=== PATIENT | female | born 1990 | race Caucasian/White ===

== ENCOUNTER 2016-07-17 15:17 | Emergency (ER) | payer SELFPAY ==
[~2016-07-17] VITALS: Ht 162.6 cm; Wt 65.0 kg
[~2016-07-17 15:17] MED LIST: PREN0.01 PO
[2016-07-17 15:19] VITALS: BP 135/75; PULSE 96; RESP 12; TEMP 97.6; O2SAT 97
--- NOTE | 2016-07-17 16:04 | PD ---
HPI Chief Complaint: Cold / Flu Symptoms Time Seen by Provider: 16:03 Travel History International Travel<30 days: No Contact w/Intl Traveler<30days: No Traveled to known affect area: No History of Present Illness HPI 26-year-old female, with history of asthma, presents to emergency department with complaint of asthma exacerbation. Reports nasal congestion, cough, throat irritation started yesterday and unable to control her asthma with albuterol inhaler. Reports wheezing. Denies chest pain, chest tightness, shortness of breath. Denies fever, chills, nausea, vomiting. Last used her albuterol inhaler earlier this morning with minimal relief. Has not taken any other medications or drainage to alleviate her symptoms. No known allergies. Discussed with primary care provider in this area. No other modifying factors or associated signs and symptoms. PFSH Past Medical History Anemia: Yes Bipolar Disorder: Yes Anxiety: Yes Cardiovascular Problems: No Musculoskeletal: No Neurologic: No Psychiatric: Yes (BIPOLAR, DEPRESSION, PTSD) Respiratory: Yes (ASTHMA) : 4 Para: 3 Past Surgical History Other Surgery: No Social History Alcohol Use: No (admits to using cocaine about a week ago) Tobacco Use: Yes Substance Use: Yes (CRACK) Allergies-Medications (Allergen,Severity, Reaction): Coded Allergies: No Known Allergies (Unverified , 07/17/16) Reported Meds & Prescriptions Reported Meds & Active Scripts Active Reported Vitamins 1 Tab PO DAILY Review of Systems Except as stated in HPI: all other systems reviewed are Neg Physical Exam Narrative GENERAL: Well-nourished, well-developed female patient, in no acute distress; afebrile, nontoxic-appearing SKIN: Warm and dry. HEAD: Atraumatic. Normocephalic. EYES: Pupils equal and round. No scleral icterus. No injection or drainage. ENT: Mucosa pink and moist. No erythema or exudates. No uvular edema. No uvular , palatal, or tonsillar deviation. Airway patent. Nares without nasal blood, purulent drainage or septal hematoma. EARS: Bilateral pinnae and external canals appear within normal limits. Bilateral tympanic membranes without erythema, dullness or perforation. NECK: Trachea midline. No lymphadenopathy. CARDIOVASCULAR: Regular rate and rhythm. No murmur appreciated. RESPIRATORY: No accessory muscle use. Lungs with Wheezing throughout to auscultation. Breath sounds equal bilaterally. No retractions or tachypnea. No Audible wheezing noted. GASTROINTESTINAL: Abdomen soft, non-tender, nondistended. Hepatic and splenic margins not palpable. Bowel sounds are active 4 quadrants. MUSCULOSKELETAL: No obvious deformities. No clubbing. No cyanosis. No edema. NEUROLOGICAL: Awake and alert. Oriented 3. No obvious cranial nerve deficits. Motor grossly within normal limits. Normal speech. Moves all extremities. 5/5 strength to all extremities. PSYCHIATRIC: Appropriate mood and affect; insight and judgment normal. Data Data Last Documented VS Vital Signs Date Time Temp Pulse Resp B/P Pulse Ox O2 Delivery O2 Flow Rate FiO2 07/17/16 15:19 97.6 96 12 135/75 97 Room Air Orders Prednisone (Deltasone) (07/17/16 16:15) Albuterol-Ipratropium Neb (Duoneb Neb) (07/17/16 16:15) [facility] Medical Decision Making Medical Screen Exam Complete: Yes Emergency Medical Condition: Yes Medical Record Reviewed: Yes Differential Diagnosis Asthma exacerbation, viral illness, sinusitis Narrative Course 26-year-old female with history of asthma; physical exam consistent with asthma exacerbation and viral illness. Patient is in no acute distress and without retractions or tachypnea. Lungs with wheezing throughout. Oxygen saturation 97 % on room air. No audible wheezing. Discussed viral illness and symptoms management and patient verbalized understanding and agreement of treatment plan. DuoNeb and Deltasone administered in the ER. 1709: Patient left AMA immediately after DuoNeb was administered. AMA: The risks of leaving against medical advice without further evaluation treatment were discussed with the patient. These risks include cardiac dysfunction, cardiac dysrhythmia, possible heart attack, possible stroke or . The patient indicated understanding of these risks and appeared to have the capacity to make this decision. Diagnosis Primary Impression: Left against medical advice Disposition: 07 AGAINST MEDICAL ADVICE Sondra Fernandez Jul 17, 2016 16:03
[2016-07-17] MEDS ORDERED: BENZ100 PO (16:07)
[2016-07-17] MEDS ORDERED: MOME17I EACH NARE (16:07)
[2016-07-17] MEDS ORDERED: ALBUAER3 INH (16:07)
[2016-07-17] MEDS ORDERED: PRED-503 PO (16:07)
[2016-07-17] MEDS ORDERED: IBUP800T23 PO (16:07)
[2016-07-17] MEDS ORDERED: predniSONE 20 MG TAB PO ONE (16:15)
[2016-07-17] MEDS: RESP: ALBUTEROL 2.5 MG/IPRATROPIUM 0.5 MG NEB (SCH) INH ×2 (16:15→16:50)
== END 2016-07-17 17:10 | disposition left against medical advice (07) ==
LOC: NEPB 15:17
DX: J45.901 Unspecified asthma with (acute) exacerbation (principal); Z72.0 Tobacco use
CPT/HCPCS: 94640; 94664; 99283; J7512

== ENCOUNTER 2016-07-21 08:55 | Emergency (ER) | payer MEDICAID, OTHER ==
[~2016-07-21] VITALS: Ht 162.6 cm; Wt 65.0 kg
[2016-07-21 08:58] VITALS: BP 120/86; PULSE 92; RESP 20; TEMP 97.6; O2SAT 95
[2016-07-21] MEDS ORDERED: ZITHTAB PO (09:35)
[2016-07-21] MEDS ORDERED: PRED20 PO (09:35)
[2016-07-21] MEDS ORDERED: VENTAER INH (09:35)
[2016-07-21] MEDS ORDERED: BENZ100 PO (09:35)
--- NOTE | 2016-07-21 09:36 | PD ---
HPI Chief Complaint: Cold / Flu Symptoms Time Seen by Provider: 09:35 Travel History International Travel<30 days: No Contact w/Intl Traveler<30days: No Traveled to known affect area: No History of Present Illness HPI 26-year-old female with a history of asthma and chronic bronchitis presents to the emergency department for evaluation of productive cough with yellow sputum for one week. States she's also had a sore throat and headache. Denies any fever, chills, nausea, vomiting, chest pain, shortness of breath. States she has been using her inhaler as prescribed but that her symptoms have persisted. States she was seen in our emergency department several days ago but had to leave before she received her prescriptions and discharge paperwork. She also states that she recently moved to the area and does not yet have a PCP and is about to run out of her inhaler. Patient is a smoker. Denies , she is status post partial hysterectomy. No other complaints. PFSH Past Medical History Anemia: Yes Asthma: Yes Bipolar Disorder: Yes Anxiety: Yes Cardiovascular Problems: No Musculoskeletal: No Neurologic: No Psychiatric: Yes (BIPOLAR, DEPRESSION, PTSD) Respiratory: Yes (ASTHMA) Tetanus Vaccination: < 5 Years ?: Not : 4 Para: 3 Past Surgical History Hysterectomy: Yes Other Surgery: No Social History Alcohol Use: No (admits to using cocaine about a week ago) Tobacco Use: Yes Substance Use: Yes (CRACK) Allergies-Medications (Allergen,Severity, Reaction): Coded Allergies: No Known Allergies (Unverified , 07/17/16) Reported Meds & Prescriptions Reported Meds & Active Scripts Active Tessalon Perles (Benzonatate) 100 Mg Cap 100 Mg PO TID PRN 7 Days Ventolin Hfa 18 GM Inh (Albuterol Sulfate) 90 Mcg/Act Aer 2 Puff INH Q4-6H PRN Zithromax Z-Marito (Azithromycin) 250 Mg Dspk 250 Mg PO DIRECTED 500 MG (2 tabs) day 1, then 1 tab days 2-5. Prednisone 20 Mg Tab 20 Mg PO BID 5 Days Reported Vitamins 1 Tab PO DAILY Review of Systems Except as stated in HPI: all other systems reviewed are Neg Physical Exam Narrative GENERAL: Well-nourished and well-developed pleasant female patient in no acute distress who is nontoxic appearing. SKIN: Warm and dry. HEAD: Normocephalic and atraumatic. EYES: No injection, drainage, or hyphema noted. PERRLA. EOMI. ENT: No nasal drainage noted. Oropharynx is clear. NECK: Supple and the trachea is midline. CARDIOVASCULAR: Regular rate and rhythm. RESPIRATORY: Mild wheeze at bases bilaterally. No accessory muscle use,, rhonchi, or crackles. GASTROINTESTINAL: Abdomen is soft, non-tender, and nondistended. MUSCULOSKELETAL: No obvious deformities, swelling, cyanosis, or ecchymosis is present throughout the upper and lower extremities. Patient has full range of motion without any signs of neurovascular compromise. NEUROLOGICAL: Awake, alert, and oriented. Normal speech and gait. Cranial nerves are grossly intact. Data Data Last Documented VS Vital Signs Date Time Temp Pulse Resp B/P Pulse Ox O2 Delivery O2 Flow Rate FiO2 07/21/16 08:58 97.6 92 20 120/86 95 Room Air MDM Medical Decision Making Medical Screen Exam Complete: Yes Emergency Medical Condition: Yes Differential Diagnosis Acute bronchitis versus pneumonia versus asthma exacerbation Narrative Course 26-year-old female with a history of asthma presents to the emergency department for evaluation of productive cough for 1 week. Patient is afebrile, vital signs are stable. Patient appears well and is in no acute distress. The patient will be given prescriptions for an albuterol inhaler, prednisone, Z-Marito and Tessalon Perles. Discussed supportive care and when to return to the emergency department. Patient verbalizes understanding and agreement with treatment plan. Diagnosis Primary Impression: Acute bronchitis Qualified Code: J20.9 - Acute bronchitis, unspecified organism Referrals: Primary Care Physician Patient Instructions: Acute Bronchitis (ED), General Instructions Additional Instructions: Stop smoking cigarettes. Take medications as prescribed with food and a full glass of water. Follow-up with your Primary Care Physician. Return to the ED for any acute worsening of symptoms. Med/Other Pt SpecificInfo: Prescription(s) given Scripts Benzonatate (Tessalon Perles)100 Mg [id number] Mg PO TID PRN (COUGH) 7 Days Ref 0 Prov:Cruz Sapp MD 07/21/16 Albuterol 18 GM Inh (Ventolin Hfa 18 GM Inh)90 Mcg/Act Aer2 Puff INH Q4-6H PRN ( SHORTNESS OF BREATH) #1 INHALER Ref 0 Prov:Cruz Sapp MD 07/21/16 Azithromycin (Zithromax Z-Marito)250 Mg [id number] Mg PO DIRECTED #1 DSPK Ref 0 500 MG (2 tabs) day 1, then 1 tab days 2-5. Prov:Cruz Sapp MD 07/21/16 Prednisone 20 Mg Tab20 Mg PO BID 5 Days Ref 0 Prov:Cruz Sapp MD 07/21/16 Disposition: 01 DISCHARGE HOME Condition: Stable Sondra Morataya Jul 21, 2016 09:36
== END 2016-07-21 09:51 | disposition home or self-care (01) ==
LOC: NEPB 08:55
DX: J20.9 Acute bronchitis, unspecified (principal); J45.909 Unspecified asthma, uncomplicated; D64.9 Anemia, unspecified; F41.8 Other specified anxiety disorders; F31.9 Bipolar disorder, unspecified; F43.10 Post-traumatic stress disorder, unspecified; F14.10 Cocaine abuse, uncomplicated
CPT/HCPCS: 99283

== ENCOUNTER 2016-11-29 05:42 | Inpatient (IN) | payer SELFPAY ==
[~2016-11-29] VITALS: Ht 160 cm; Wt 50.0 kg
[~2016-11-29 05:42] MED LIST changes: +BENZ100 PO; +PRED20 PO; +VENTAER INH; +ZITHTAB PO
[2016-11-29 05:44] VITALS: BP 139/100; PULSE 93; RESP 18; TEMP 98.7; O2SAT 98
--- NOTE | 2016-11-29 06:06 | PD ---
HPI Chief Complaint: Back/ Neck Pain or Injury Time Seen by Provider: 05:55 Travel History International Travel<30 days: No Contact w/Intl Traveler<30days: No Traveled to known affect area: No History of Present Illness HPI 26-year-old female with history of heroine use and IV drug use, admitted at [facility] last week due to a "mass on her spine", shows me a picture that appears to be an epidural abscess of the spine, presents to the ER today because she states that she is having severe 10 out of 10 back pains and has been urinating on herself for the last week. Patient's significant other states that she had signed out AGAINST MEDICAL ADVICE after being told that she was post to get surgery in her spine. She denies any fevers or any other issues. Modifying Factors: None Associated Signs & Symptoms: Severe back pain, incontinence Risk Factors: Lupus, IV drug use, spinal abscess PFSH Past Medical History Anemia: Yes Asthma: Yes Bipolar Disorder: Yes Anxiety: Yes Cardiovascular Problems: No Musculoskeletal: No Neurologic: No Psychiatric: Yes (BIPOLAR, DEPRESSION, PTSD) Respiratory: Yes (ASTHMA) : 4 Para: 3 Past Surgical History Hysterectomy: Yes Other Surgery: No Social History Alcohol Use: No (admits to using cocaine about a week ago) Tobacco Use: Yes Substance Use: Yes (CRACK) Allergies-Medications (Allergen,Severity, Reaction): Coded Allergies: Codeine (Verified Allergy, Mild, Itching, 11/29/16) Reported Meds & Prescriptions Reported Meds & Active Scripts Active Review of Systems Except as stated in HPI: all other systems reviewed are Neg Physical Exam Narrative GENERAL: Well-developed young white female patient who is in moderate to severe distress secondary to pain. Awake and oriented 3. Crying in pain. SKIN: Focused skin assessment warm/dry. HEAD: Atraumatic. Normocephalic. EYES: Pupils equal and round. No scleral icterus. No injection or drainage. ENT: No nasal bleeding or discharge. Mucous membranes pink and moist. NECK: Trachea midline. No JVD. CARDIOVASCULAR: Regular rate and rhythm. No murmur appreciated. RESPIRATORY: No accessory muscle use. Clear to auscultation. Breath sounds equal bilaterally. GASTROINTESTINAL: Abdomen soft, non-tender, nondistended. Hepatic and splenic margins not palpable. MUSCULOSKELETAL: No obvious deformities. No clubbing. No cyanosis. No edema. NEUROLOGICAL: Awake and alert. No obvious cranial nerve deficits. Motor grossly within normal limits. Normal speech. PSYCHIATRIC: Appropriate mood and affect; insight and judgment normal. Data Data Last Documented VS Vital Signs Date Time Temp Pulse Resp B/P Pulse Ox O2 Delivery O2 Flow Rate FiO2 11/29/16 06:04 98 24 11/29/16 05:44 98.7 139/100 98 Room Air Orders Complete Blood Count With Diff (11/29/16 05:55) Comprehensive Metabolic Panel (11/29/16 05:55) Urinalysis - C+S If Indicated (11/29/16 05:55) Iv Access Insert/Monitor (11/29/16 05:55) Ecg Monitoring (11/29/16 05:55) Mri T Spine W/O Contrast (11/29/16 05:55) Mri L Spine W/O Contrast (11/29/16 05:55) Ed Urine Pregnancytest Poc (11/29/16 05:55) Vancomycin Inj (Vancomycin Inj) (11/29/16 06:23) Cefepime Inj (Maxipime Inj) (11/29/16 06:23) Sodium Chlor 0.9% 1000 Ml Inj (Ns 1000 M (11/29/16 06:30) Blood Culture (11/29/16 06:23) Lactic Acid Sepsis Protocol (11/29/16 06:23) Labs Laboratory Tests Test 11/29/16 06:00 White Blood Count 14.8 TH/MM3 Red Blood Count 4.16 MIL/MM3 Hemoglobin 12.7 GM/DL Hematocrit 37.4 % Mean Corpuscular Volume 90.0 FL Mean Corpuscular Hemoglobin 30.6 PG Mean Corpuscular Hemoglobin 34.0 % Concent Red Cell Distribution Width 13.7 % Platelet Count 242 TH/MM3 Mean Platelet Volume 9.0 FL Neutrophils (%) (Auto) 78.8 % Lymphocytes (%) (Auto) 14.8 % Monocytes (%) (Auto) 4.0 % Eosinophils (%) (Auto) 2.0 % Basophils (%) (Auto) 0.4 % Neutrophils # (Auto) 11.6 TH/MM3 Lymphocytes # (Auto) 2.2 TH/MM3 Monocytes # (Auto) 0.6 TH/MM3 Eosinophils # (Auto) 0.3 TH/MM3 Basophils # (Auto) 0.1 TH/MM3 CBC Comment DIFF FINAL Differential Comment Sodium Level 142 MEQ/L Potassium Level 4.4 MEQ/L Chloride Level 111 MEQ/L Carbon Dioxide Level 24.4 MEQ/L Anion Gap 7 MEQ/L Blood Urea Nitrogen 14 MG/DL Creatinine 0.68 MG/DL Estimat Glomerular Filtration 104 ML/MIN Rate Random Glucose 84 MG/DL Calcium Level 8.5 MG/DL Total Bilirubin 0.2 MG/DL Aspartate Amino Transf 46 U/L (AST/SGOT) Alanine Aminotransferase 22 U/L (ALT/SGPT) Alkaline Phosphatase 55 U/L Total Protein 6.8 GM/DL Albumin 3.2 GM/DL MDM Medical Decision Making Medical Screen Exam Complete: Yes Emergency Medical Condition: Yes Medical Record Reviewed: Yes Interpretation(s) Laboratory Tests Test 11/29/16 06:00 White Blood Count 14.8 TH/MM3 (4.0-11.0) Neutrophils (%) (Auto) 78.8 % (16.0-70.0) Neutrophils # (Auto) 11.6 TH/MM3 (1.8-7.7) Chloride Level 111 MEQ/L (98-107) Aspartate Amino Transf 46 U/L (15-37) (AST/SGOT) Albumin 3.2 GM/DL (3.4-5.0) Differential Diagnosis Back pain, urinary incontinenceevaluate for spinal abscess versus cauda equina versus muscle spasms Narrative Course I have sent for previous admission information from [facility] and it shows that apparently Dr. 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 Bed talked about decompressing the cyst by IR. Apparently, patient had signed out AMA from the facility. IV antibiotics were initiated after blood work shows elevation in white blood cell count. There is concern about an epidural abscess in this case considering patient's history of IV drug use and apparently patient also has HIV. Lab work and MRI has been ordered for the patient. I had also talked to Dr. Whitt who suggested that we wait for the MRI for further evaluation. Physician Communication Physician Communication Case is signed out to Dr. Raza at 7 AM awaiting workup with MRI. Diagnosis Primary Impression: Severe back pain Condition: Stable Nan Bobby MD Nov 29, 2016 06:06
[2016-11-29 06:08] LABS: AUTOMATED NEUTROPHIL # 11.6 TH/MM3 (1.8-7.7); BASOPHIL # 0.1 TH/MM3 (0-0.2); BASOPHIL % 0.4 % (0.0-2.0); EOSINOPHIL # 0.3 TH/MM3 (0-0.4); HEMATOCRIT 37.4 % (35.0-46.0); HEMO FLAGS DIFF FINAL; LYMPH % 14.8 % (9.0-44.0); LYMPHOCYTE # 2.2 TH/MM3 (1.0-4.8); MEAN CORPUSCULAR HEMOGLOBIN 30.6 PG (27.0-34.0); NEUT % 78.8 % (16.0-70.0); PLATELET COUNT 242 TH/MM3 (150-450); RED BLOOD COUNT 4.16 MIL/MM3 (4.00-5.30); RED CELL DISTRIBUTION WIDTH 13.7 % (11.6-17.2); WHITE BLOOD COUNT 14.8 TH/MM3 (4.0-11.0)
[2016-11-29] MEDS ORDERED: CEFEPIME INJ 2,000 MG in SODIUM CHLORIDE 0.9% INJ 100 ML IV STA (06:23)
[2016-11-29] MEDS ORDERED: VANCOMYCIN INJ 1,000 MG in SODIUM CHLOR 0.9% 250 ML INJ 250 ML IV STA (06:23)
[2016-11-29 06:27] LABS: ALKALINE PHOSPHATASE 55 U/L (45-117); TOTAL BILIRUBIN ADULT 0.2 MG/DL (0.2-1.0)
[2016-11-29 06:28] LABS: ALT (GPT) 22 U/L (10-53); ANION GAP 7 MEQ/L (5-15); AST (GOT) 46 U/L (15-37); BICARBONATE 24.4 MEQ/L (21.0-32.0); BLOOD UREA NITROGEN 14 MG/DL (7-18); CHLORIDE 111 MEQ/L (98-107); GLOMERULAR FILTRATION RATE 104 ML/MIN (>89); POTASSIUM 4.4 MEQ/L (3.5-5.1); SODIUM (NA) 142 MEQ/L (136-145)
[2016-11-29] MEDS ORDERED: SODIUM CHLOR 0.9% 1000 ML INJ 1,000 ML IV ONE (06:30)
[2016-11-29 06:52] VITALS: BP 107/64; PULSE 80; RESP 20; O2SAT 100
[2016-11-29 07:59] LABS: BACTERIA, URINE FEW /hpf; BLOOD, URINE TRACE (NEG); COMMENT (UR) CULTURE INDICATED; CULTURE IF INDICATED CULTURE INDICATED; GLUCOSE,URINE NEG (NEG); KETONE, URINE NEG (NEG); MUCUS URINE FEW /lpf (OCC); NITRITE,URINE NEG (NEG); SQUAMOUS EPITHELIAL CELL URINE 8 /hpf (0-5); URINE COLOR YELLOW (YELLW/STRAW)
--- NOTE | 2016-11-29 08:00 | PD ---
Physical Exam Date Seen by Provider: Nov 29, 2016 Time Seen by Provider: 07:00 Narrative The patient was signed out to me by Dr. Boland. We're awaiting MRI results. The patient has a history of IVD drug use and was seen and evaluated at [facility] transferred to [facility]. She was diagnosed with an epidural abscess and when the surgeon wanted to discuss surgery, she signed out AGAINST MEDICAL ADVICE. Data Data Last Documented VS Vital Signs Date Time Temp Pulse Resp B/P Pulse Ox O2 Delivery O2 Flow Rate FiO2 11/29/16 08:58 83 18 118/70 98 Room Air 11/29/16 05:44 98.7 Orders Complete Blood Count With Diff (11/29/16 05:55) Comprehensive Metabolic Panel (11/29/16 05:55) Urinalysis - C+S If Indicated (11/29/16 05:55) Iv Access Insert/Monitor (11/29/16 05:55) Ecg Monitoring (11/29/16 05:55) Ed Urine Pregnancytest Poc (11/29/16 05:55) Vancomycin Inj (Vancomycin Inj) (11/29/16 06:23) Cefepime Inj (Maxipime Inj) (11/29/16 06:23) Sodium Chlor 0.9% 1000 Ml Inj (Ns 1000 M (11/29/16 06:30) Blood Culture (11/29/16 06:23) Lactic Acid Sepsis Protocol (11/29/16 06:23) Mri T Spine W & W/O Contrast (11/29/16 05:55) Mri L Spine W&W/O Contrast (11/29/16 05:55) Urine Culture (11/29/16 07:20) Gadodiamide Pf Inj (Omniscan Pf Inj) (11/29/16 08:26) Vancomycin Consult Pharmacy (Vancomycin (11/29/16 09:45) Cefepime Inj (Maxipime Inj) (11/29/16 14:00) Admit To Inpatient (11/29/16 ) Code Status (11/29/16 09:37) Vital Signs (Adult) Q4H (11/29/16 09:37) Activity Oob Ad Vijaya (11/29/16 09:37) Intake + Output YENNIFER.QSHIFT (11/29/16 09:37) Notify Dr: Other (11/29/16 09:37) Diet Regular Basic (11/29/16 Breakfast) Sodium Chlor 0.9% 1000 Ml Inj (Ns 1000 M (11/29/16 09:37) Sodium Chloride 0.9% Flush (Ns Flush) (11/29/16 09:45) Sodium Chloride 0.9% Flush (Ns Flush) (11/29/16 21:00) Acetaminophen (Tylenol) (11/29/16 09:45) Ondansetron Inj (Zofran Inj) (11/29/16 09:45) Basic Metabolic Panel (Bmp) (11/30/16 06:00) Complete Blood Count With Diff (11/30/16 06:00) Prothrombin Time / Inr (Pt) (11/30/16 06:00) Case Management Consult (11/29/16 09:37) Heparin Inj (Heparin Inj) (11/29/16 09:45) Naloxone Inj (Narcan Inj) (11/29/16 09:45) Docusate Sodium-Senna (Demetra-Colace) (11/29/16 21:00) Magnesium Hydroxide Liq (Milk Of Magnesi (11/29/16 09:45) Sennosides (Senokot) (11/29/16 09:45) Bisacodyl Supp (Dulcolax Supp) (11/29/16 09:45) Lactulose Liq (Lactulose Liq) (11/29/16 09:45) Inpatient Certification (11/29/16 ) Scd Bilateral/Knee High YENNIFER.QSHIFT (11/29/16 09:42) Admit Order (Ed Use Only) (11/29/16 09:42) Labs Laboratory Tests Test 11/29/16 11/29/16 11/29/16 06:00 06:35 07:20 White Blood Count 14.8 TH/MM3 Red Blood Count 4.16 MIL/MM3 Hemoglobin 12.7 GM/DL Hematocrit 37.4 % Mean Corpuscular Volume 90.0 FL Mean Corpuscular Hemoglobin 30.6 PG Mean Corpuscular Hemoglobin 34.0 % Concent Red Cell Distribution Width 13.7 % Platelet Count 242 TH/MM3 Mean Platelet Volume 9.0 FL Neutrophils (%) (Auto) 78.8 % Lymphocytes (%) (Auto) 14.8 % Monocytes (%) (Auto) 4.0 % Eosinophils (%) (Auto) 2.0 % Basophils (%) (Auto) 0.4 % Neutrophils # (Auto) 11.6 TH/MM3 Lymphocytes # (Auto) 2.2 TH/MM3 Monocytes # (Auto) 0.6 TH/MM3 Eosinophils # (Auto) 0.3 TH/MM3 Basophils # (Auto) 0.1 TH/MM3 CBC Comment DIFF FINAL Differential Comment Sodium Level 142 MEQ/L Potassium Level 4.4 MEQ/L Chloride Level 111 MEQ/L Carbon Dioxide Level 24.4 MEQ/L Anion Gap 7 MEQ/L Blood Urea Nitrogen 14 MG/DL Creatinine 0.68 MG/DL Estimat Glomerular Filtration 104 ML/MIN Rate Random Glucose 84 MG/DL Calcium Level 8.5 MG/DL Total Bilirubin 0.2 MG/DL Aspartate Amino Transf 46 U/L (AST/SGOT) Alanine Aminotransferase 22 U/L (ALT/SGPT) Alkaline Phosphatase 55 U/L Total Protein 6.8 GM/DL Albumin 3.2 GM/DL Lactic Acid Level 1.0 mmol/L Urine Color YELLOW Urine Turbidity HAZY Urine pH 7.0 Urine Specific [place] 1.017 Urine Protein TRACE mg/dL Urine Glucose (UA) NEG mg/dL Urine Ketones NEG mg/dL Urine Occult Blood TRACE Urine Nitrite NEG Urine Bilirubin NEG Urine Urobilinogen LESS THAN 2.0 MG/DL Urine Leukocyte Esterase LARGE Urine RBC 6 /hpf Urine WBC 70 /hpf Urine Squamous Epithelial 8 /hpf Cells Urine Amorphous Sediment FEW Urine Bacteria FEW /hpf Urine Mucus FEW /lpf Microscopic Urinalysis Comment CULTURE INDICATED MDM Medical Record Reviewed: Yes Supervised Visit with JIMMY: No Narrative Course This is a 76 year old female who presents with back pain and urinary incontinence. The patient has a history of IVD drug use. She was seen at [facility] and recommendation was that she possibly would need surgery and she signed out AGAINST MEDICAL ADVICE. The patient is somewhat aggressive and disruptive however she has agreed to have an MRI. MRI shows what looks like a subarachnoid cyst rather than an epidural abscess. Dr. Dilan Barry, oncology coordinator neurosurgeon, has been called and consulted. He is recommended interventional radiology drainage of the subarachnoid cyst. The patient was discussed with Dr. Quesada, [facility], who agreed to admit the patient under his service. He will start her on by the antibiotics until we can confirm that this is not infectious etiology. Diagnosis Primary Impression: Severe back pain Additional Impression: history of IVD drug use Admitting Information Admitting Physician Requests: Admit Condition: Stable Yunior Raza MD Nov 29, 2016 08:00
[2016-11-29] MEDS ORDERED: GADODIAMIDE PF 287 MG/ML 10 ML VIAL (for RAD MRI) IV ONE (08:26)
--- NOTE | 2016-11-29 08:57 | RADRPT ---
EXAM DATE/TIME: 11/29/2016 07:47 [place] COMPARISON: No previous studies available for comparison. INDICATIONS : Abscess. Back pain with history of IVDU. CONTRAST: 10 cc Omniscan (gadodiamide) IV MEDICAL HISTORY : IVDU. SURGICAL HISTORY : Hysterectomy. ENCOUNTER: Initial ACUITY: 3 day PAIN SCORE: 6/10 LOCATION: back. TECHNIQUE: Multiplanar multisequence MRI of the lumbar spine was performed with and without contrast. FINDINGS: The most caudal appearing lumbar vertebra is numbered as L5. VERTEBRAE: Bone marrow signal is within normal limits and vertebral body height is maintained. There is no anter olisthesis or retrolisthesis. There is a CSF signal intensity fluid collection extending from T11-L1 measuring approximately 8.0 x 1.9 cm. It is located posterior to the thecal sac and what appears to b e the epidural space and causes enlargement of the spinal canal and scalloping of the posterior eleme nts and anteriorly displaces the thecal sac. It follows CSF signal intensity on all sequences. CONUS: Normal level and configuration. POST CONTRAST: No abnormal areas of contrast enhancement are seen. T12-L1: There is anterior displacement of the thecal sac secondary to the posterior extradural CSF signal int ensity collection which enlarges the spinal canal and neural foramina. There is mild decreased size o f the thecal sac. There is no neural foraminal narrowing. L1-L2: No disc herniation, canal stenosis, or neural frontal stenosis. L2-L3: No disc herniation, canal stenosis, or neural frontal stenosis. L3-L4: No disc herniation, canal stenosis, or neural frontal stenosis. L4-L5: No disc herniation, canal stenosis, or neural frontal stenosis. There is mild facet hypertrophy. L5-S1: No disc herniation, canal stenosis, or neural frontal stenosis. Visualized paraspinous structures demonstrate no acute finding. CONCLUSION: 1. There are no findings to indicate osteomyelitis or discitis. 2. There is a posterior extradural cystic mass extending from the T11-L1 level measuring 8.0 x 1.9 cm . It enlarges the spinal canal scalloping the posterior elements and enlarging the neural foramina. I t has mild mass effect on the thecal sac. 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 Romeo Bailey MD on November 29, 2016 at 8:46 Board Certified Radiologist. This report was verified electronically.
[2016-11-29 08:58] VITALS: BP 118/70; PULSE 83; RESP 18; O2SAT 98
--- NOTE | 2016-11-29 09:02 | RADRPT ---
EXAM DATE/TIME: 11/29/2016 07:47 [place] COMPARISON: MRI LUMBAR SPINE W & W/O CONTRAST, November 29, 2016, 7:47. INDICATIONS : Abscess. Back pain with history of IVDU. CONTRAST: 10 cc Omniscan (gadodiamide) IV MEDICAL HISTORY : IVDU. SURGICAL HISTORY : Hysterectomy. ENCOUNTER: Initial ACUITY: 3 day PAIN SCORE: 6/10 LOCATION: mid back. TECHNIQUE: Multiplanar multisequence MRI of the thoracic spine was performed. FINDINGS: VERTEBRA: Normal vertebral body height. Bone marrow signal is normal. There is a posterior extradural cystic ma ss containing a single thin septation at the T11-L1 level. It measures approximately 8.0 x 1.9 cm and expands the spinal canal and anteriorly displaces the thecal sac. It causes mild scalloping of the p osterior elements and enlargement of some of the neural foramina. It follows CSF signal intensity on all sequences and demonstrates no enhancement. ALIGNMENT: There is no anterolisthesis or retrolisthesis. CORD: Normal position and configuration. POST CONTRAST: No abnormal areas of contrast enhancement seen. T1-T2: No disc herniation, canal stenosis, or neural foraminal stenosis. T2-T3: No disc herniation, canal stenosis, or neural foraminal stenosis. T3-T4: No disc herniation, canal stenosis, or neural foraminal stenosis. T4-T5: No disc herniation, canal stenosis, or neural foraminal stenosis. T5-T6: No disc herniation, canal stenosis, or neural foraminal stenosis. T6-T7: No disc herniation, canal stenosis, or neural foraminal stenosis. T7-T8: No disc herniation, canal stenosis, or neural foraminal stenosis. T8-T9: No disc herniation, canal stenosis, or neural foraminal stenosis. T9-T10: No disc herniation, canal stenosis, or neural foraminal stenosis. T10-T11: No disc herniation, canal stenosis, or neural foraminal stenosis. T11-T12: No disc herniation, canal stenosis, or neural foraminal stenosis. T12-L1: No disc herniation, canal stenosis, or neural foraminal stenosis. The visualized paraspinous structures demonstrate no abnormality. CONCLUSION: 1. No acute abnormality is identified. There is no discitis or osteomyelitis. 2. There is a cystic mass in the posterior aspect of the spinal canal at the T11-L1 level measuring 8 .0 x 1.9 cm. 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 It has mild mass effect on the adjacent thecal sac. Romeo Bailey MD on November 29, 2016 at 8:56 Board Certified Radiologist. This report was verified electronically.
[2016-11-29] MEDS ORDERED: SODIUM CHLOR 0.9% 1000 ML INJ 1,000 ML IV SCH (09:37)
[2016-11-29] MEDS ORDERED: BISACODYL 10 MG SUPP RECTAL PRN (09:45)
[2016-11-29] MEDS ORDERED: HEPARIN SODIUM - SQ 10,000 UNITS/ML VIAL SQ SCH (09:45)
[2016-11-29] MEDS ORDERED: SENNOSIDES 8.6 MG TAB PO PRN (09:45)
[2016-11-29] MEDS ORDERED: NALOXONE HCL 0.4 MG/ML AMP IV PRN (09:45)
[2016-11-29] MEDS ORDERED: LACTULOSE SYRUP 20 GM/30 ML CUP PO PRN (09:45)
[2016-11-29] MEDS ORDERED: Vancomycin Consult Pharmacy 1 EA OTHER SCH (09:45)
[2016-11-29] MEDS ORDERED: SODIUM CHLORIDE 0.9% FLUSH 10 ML FLUSH IV FLUSH PRN (09:45)
[2016-11-29] MEDS ORDERED: ACETAMINOPHEN 325 MG TAB PO PRN (09:45)
[2016-11-29] MEDS ORDERED: ONDANSETRON HCL 4 MG/2 ML VIAL IVP PRN (09:45)
[2016-11-29] MEDS ORDERED: MAGNESIUM HYDROXIDE SUSP 30 ML CUP PO PRN (09:45)
--- NOTE | 2016-11-29 09:53 | HHI.HP ---
Epidural Abscess versus epidural Cyst. [facility] No Primary Care Physician Admission Diagnosis Diagnoses: Chief Complaint: Lumbar pain and probable spine mass Travel History International Travel<30 Days: No Contact w/Intl Traveler <30 Da: No Traveled to Known Affected Are: No History of Present Illness This is a pleasant 26 y/o Female with history of Heroin Abuse and IDU, she was admitted to [facility] due to Spinal Mass with probable epidural abscess, she was started management but she signed against Medical Advice, today came to ER with severe Pain 10/10 in intensity on back area with associated Urinary Incontinence , for one week, the case was discussed by ER specialist with Neurosurgery specialist, recommended Interventional Radiology to drain the Cyst and evaluate if is an infectious process versus, Cyst. at this time is Lopez to continue management as Spinal Abscess recommended management Elected in ER with Vancomycin plus Cefepime, will continue this management and follow after Drainage performed as we know the patient has Anemia, Asthma, Bipolar disorder, the patient refuse and gets upset when asked about hepatitis and HIV status seen in Emergency room in the presence of her boyfriend Mr. Antwon Galicia. she was initially seen at [facility] sent to [facility] she was evaluated by Doctor Santillan and offered Procedure she signed AMA and now came to ER with pain. Past Family Social History Past Medical History Anemia Asthma Bipolar disorder Hepatitis C HIV Past Surgical History ALLYSON Reported Medications Reported Meds & Active Scripts Active Allergies: Coded Allergies: Codeine (Verified Allergy, Mild, Itching, 11/29/16) Active Ordered Medications Current Medications Medications (Trade) Dose Ordered Sig/Fredi Route Start Time Stop Time Status Last Admin Pharmacy Profile Note 0 ml @ 0 mls/hr UNSCH OTHER 11/29/16 09:45 Cefepime HCl 2000 mg/Sodium Chloride 100 ml @ 200 mls/hr Q8H IV 11/29/16 14:00 (NS 1000 ml Inj) 1,000 ml @ 100 mls/hr Q10H IV 11/29/16 09:37 (NS Flush) 2 ml UNSCH PRN IV FLUSH 11/29/16 09:45 (NS Flush) 2 ml BID IV FLUSH 11/29/16 21:00 (Tylenol) 650 mg Q4H PRN PO 11/29/16 09:45 (Zofran Inj) 4 mg Q6H PRN IVP 11/29/16 09:45 (Narcan Inj) 0.4 mg UNSCH PRN IV 11/29/16 09:45 (Demetra-Colace) 1 tab BID PO 11/29/16 21:00 (Milk Of Magnesia Liq) 30 ml Q12H PRN PO 11/29/16 09:45 (Senokot) 17.2 mg Q12H PRN PO 11/29/16 09:45 (Dulcolax Supp) 10 mg DAILY PRN RECTAL 11/29/16 09:45 Lactulose 30 ml 30 ml DAILY PRN PO 11/29/16 09:45 (Vancomycin Inj/ NS 250 ml Inj) 250 ml @ 250 mls/hr Q12H IV 11/29/16 20:00 Miscellaneous Information SPECIFIC LAB TO BE ... ONCE ONCE .XX 11/30/16 19:45 11/30/16 19:46 Family History Asked and denied Social History Crack cocaine Tobacco dependence Physical Exam Vital Signs Vital Signs Date Time Temp Pulse Resp B/P Pulse Ox O2 Delivery O2 Flow Rate FiO2 11/29/16 08:58 83 18 118/70 98 Room Air 11/29/16 06:52 80 20 107/64 100 Room Air 11/29/16 06:04 98 24 11/29/16 05:44 98.7 93 18 139/100 98 Room Air Physical Exam GENERAL: Well-developed Female in no acute distress sleeping in ER. SKIN: Focused skin assessment warm/dry. HEAD: Atraumatic. Normocephalic. EYES: Pupils equal and round. No scleral icterus. No injection or drainage. ENT: No nasal bleeding or discharge. Mucous membranes pink and moist. NECK: Trachea midline. No JVD. CARDIOVASCULAR: Regular rate and rhythm. No murmur appreciated. RESPIRATORY: No accessory muscle use. Clear to auscultation. Breath sounds equal bilaterally. GASTROINTESTINAL: Abdomen soft, non-tender, nondistended. Hepatic and splenic margins not palpable. MUSCULOSKELETAL: No obvious deformities. No clubbing. No cyanosis. No edema. NEUROLOGICAL: Awake and alert. No obvious cranial nerve deficits. Motor grossly within normal limits. Normal speech. PSYCHIATRIC: Appropriate mood and affect; insight and judgment normal. Laboratory Laboratory Tests Test 11/29/16 11/29/16 11/29/16 06:00 06:35 07:20 White Blood Count 14.8 Red Blood Count 4.16 Hemoglobin 12.7 Hematocrit 37.4 Mean Corpuscular Volume 90.0 Mean Corpuscular Hemoglobin 30.6 Mean Corpuscular Hemoglobin 34.0 Concent Red Cell Distribution Width 13.7 Platelet Count 242 Mean Platelet Volume 9.0 Neutrophils (%) (Auto) 78.8 Lymphocytes (%) (Auto) 14.8 Monocytes (%) (Auto) 4.0 Eosinophils (%) (Auto) 2.0 Basophils (%) (Auto) 0.4 Neutrophils # (Auto) 11.6 Lymphocytes # (Auto) 2.2 Monocytes # (Auto) 0.6 Eosinophils # (Auto) 0.3 Basophils # (Auto) 0.1 CBC Comment DIFF FINAL Differential Comment Sodium Level 142 Potassium Level 4.4 Chloride Level 111 Carbon Dioxide Level 24.4 Anion Gap 7 Blood Urea Nitrogen 14 Creatinine 0.68 Estimat Glomerular Filtration 104 Rate Random Glucose 84 Calcium Level 8.5 Total Bilirubin 0.2 Aspartate Amino Transf 46 (AST/SGOT) Alanine Aminotransferase 22 (ALT/SGPT) Alkaline Phosphatase 55 Total Protein 6.8 Albumin 3.2 Lactic Acid Level 1.0 Urine Color YELLOW Urine Turbidity HAZY Urine pH 7.0 Urine Specific [place] 1.017 Urine Protein TRACE Urine Glucose (UA) NEG Urine Ketones NEG Urine Occult Blood TRACE Urine Nitrite NEG Urine Bilirubin NEG Urine Urobilinogen LESS THAN 2.0 Urine Leukocyte Esterase LARGE Urine RBC 6 Urine WBC 70 Urine Squamous Epithelial 8 Cells Urine Amorphous Sediment FEW Urine Bacteria FEW Urine Mucus FEW Microscopic Urinalysis Comment CULTURE INDICATED Date/Time Procedure Status Source Growth 11/29/16 07:20 Urine Culture Received Urine Clean Catch Pending 11/29/16 06:20 Aerobic Blood Culture Received Blood Peripheral Pending 11/29/16 06:20 Anaerobic Blood Culture Received Blood Peripheral Pending Result Diagram: 11/29/16 0611/29/16 06 Imaging Last Impressions Thoracic Spine MRI 11/29/16 0555 Signed Impressions: Service Date/Time: November 07:47 - CONCLUSION: 1. No acute abnormality is identified. There is no discitis or osteomyelitis. 2. There is a cystic mass in the posterior aspect of the spinal canal at the T11-L1 level measuring 8.0 x 1.9 cm. 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 It has mild mass effect on the adjacent thecal sac. Romeo Bailey MD Lumbar Spine MRI 11/29/16 0555 Signed Impressions: Service Date/Time: , November 29, 2016 07:47 - CONCLUSION: 1. There are no findings to indicate osteomyelitis or discitis. 2. There is a posterior extradural cystic mass extending from the T11-L1 level measuring 8.0 x 1.9 cm. It enlarges the spinal canal scalloping the posterior elements and enlarging the neural foramina. It has mild mass effect on the thecal sac. 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 Romeo Bailey MD Assessment and Plan Assessment and Plan 1. MRIs that showed that the patient had a subarachnoid cyst in her spine. consult placed for Neurosurgery. decompressing the cyst by IR. asked by IR in this facility at this time Apparently, patient had signed out AMA from the facility. IV antibiotics were initiated after blood work shows elevation in white blood cell count. There is concern about an epidural abscess in this case considering patient' s history of IV drug use and apparently patient also has HIV and Hepatitis C the patient refuse about the diagnosis of HIV and Hepatitis she states she does not have this diagnosis. 2. Continuous IV Drug abuse the last time she was abusing Heroin was yesterday, strongly recommended to stop Smoking 3. IDU strongly recommended to stop abusing drugs 4. Questionable Hepatitis C and HIV asked for HIV and Hepatitis Profile. DVT prophylaxis with SCDs due to probable procedure to follow. I have been called by ER nurse to tell me after I did the evaluation in Emergency room and doing this H and P that the patient decided to sign AGAINST MEDICAL ADVISE Code Status Full Code Discussed Condition With Patient, ER physician and boyfriend. Physician Certification 2 Midnight Certification Type: Admission for Inpatient Services Order for Inpatient Services The services are ordered in accordance with Medicare regulations or non- Medicare payer requirements, as applicable. In the case of services not specified as inpatient-only, they are appropriately provided as inpatient services in accordance with the 2-midnight benchmark. Estimated LOS (days): 3 days is the estimated time the patient will need to remain in the hospital, assuming treatment plan goals are met and no additional complications. Post-Hospital Plan: Not yet determined Faizan Fraser MD Nov 29, 2016 09:53
[2016-11-29 10:30] VITALS: BP 117/82
[2016-11-29 12:31] LABS: BETA HCG QUANT LESS THAN 1 MIU/ML (0-5)
[2016-11-29] MEDS ORDERED: CEFEPIME INJ 2,000 MG in SODIUM CHLORIDE 0.9% INJ 100 ML IV SCH (14:00)
[2016-11-29] MEDS ORDERED: VANCOMYCIN 1,000 MG/NS 250 ML IV SCH ×2 (20:00)
[2016-11-29] MEDS ORDERED: DOCUSATE SODIUM 50 MG/SENNA 8.6 MG TAB PO SCH (21:00)
[2016-11-29] MEDS ORDERED: SODIUM CHLORIDE 0.9% FLUSH 10 ML FLUSH IV FLUSH SCH (21:00)
[2016-11-30 10:32] LABS: RAPID PLASMA REAGIN SCREEN NON-REACTIVE (NON-REACTVE)
[2016-11-30] MEDS ORDERED: PHARMACY ORDERED LAB ONE (19:45)
== END 2016-11-29 11:10 | disposition left against medical advice (07) | DRG 93 ==
LOC: NEPE 05:42 → NEDA 09:46
PROVIDERS: ADMIT Internal Medicine; ATTEND Internal Medicine
DX: G93.0 Cerebral cysts (principal); M32.10 Systemic lupus erythematosus, organ or system involvement unspecified; B19.20 Unspecified viral hepatitis C without hepatic coma; D64.9 Anemia, unspecified; J45.909 Unspecified asthma, uncomplicated; F31.9 Bipolar disorder, unspecified; F41.9 Anxiety disorder, unspecified; F43.10 Post-traumatic stress disorder, unspecified; F17.210 Nicotine dependence, cigarettes, uncomplicated; R32 Unspecified urinary incontinence
CPT/HCPCS: 72157; 72158; 80053; 80074; 81001; 83605; 84702; 84703; 85025; 86592; 86703; 87040; 87086; 96365; 96375; A9579; J0692; J3370; J7030; J7050

== ENCOUNTER 2016-12-01 18:57 | Emergency (ER) | payer SELFPAY ==
[~2016-12-01] VITALS: Ht 162.6 cm; Wt 55.0 kg
[2016-12-01 19:00] VITALS: BP 124/94; PULSE 86; RESP 16; TEMP 97.9; O2SAT 99
== END 2016-12-01 21:00 | disposition left against medical advice (07) ==
LOC: NED 18:57
DX: M54.9 Dorsalgia, unspecified (principal); Z53.21 Procedure and treatment not carried out due to patient leaving prior to being seen by health care provider
CPT/HCPCS: 99281

== ENCOUNTER 2016-12-30 10:35 | Emergency (ER) | payer SELFPAY ==
[~2016-12-30] VITALS: Ht 160 cm; Wt 50.0 kg
[2016-12-30 10:36] VITALS: BP 112/70; PULSE 87; RESP 16; TEMP 98.2; O2SAT 98
[2016-12-30] MEDS ORDERED: ALBU6.7H INH (10:50)
--- NOTE | 2016-12-30 11:52 | PD ---
HPI Chief Complaint: Back/ Neck Pain or Injury Time Seen by Provider: 10:52 Travel History International Travel<30 days: No Contact w/Intl Traveler<30days: No Traveled to known affect area: No History of Present Illness HPI Patient is a 26-year-old male with history of active IV drug abuse who presents the emergency department with complaint of back pain. Patient seen here and admitted to our hospital approximately one month ago with a cystic lesion in the spine from approximately T11 through L1. There was concern for this to be a possible epidural abscess given her IV drug abuse history, though radiographically this more appeared to be a arachnoid cyst. The plan was to have her admitted and have interventional radiology aspirate for cultures the patient ultimately left AMA. She presented back to the ER several days later, and left AMA again. In the interim last month patient states that she has been having persistent pain in the back within that region. She has had persistent intermittent urinary incontinence. She states she has fevers and chills on a nightly basis and this is not any worse. The back pain is worse today despite using IV drugs today and so she came to the ER for further evaluation. PFSH Past Medical History Anemia: Yes Asthma: Yes Bipolar Disorder: Yes Anxiety: Yes Cardiovascular Problems: No Diminished Hearing: No Immune Disorder: Yes (Lupus) Musculoskeletal: Yes (mass on spine) Neurologic: No Psychiatric: Yes (BIPOLAR, DEPRESSION, PTSD) Respiratory: Yes (ASTHMA) Tetanus Vaccination: Unknown ?: Not : 8 Para: 4 Miscarriage: 4 Past Surgical History Gynecologic Surgery: Yes (partial Hysterectomy 2014) Hysterectomy: Yes Other Surgery: No Social History Alcohol Use: No Tobacco Use: Yes (1/2-1PPD) Substance Use: Yes ( IV DRUG Herion LAST USED 2-3 DAYS AGO) Allergies-Medications (Allergen,Severity, Reaction): Coded Allergies: Codeine (Verified Allergy, Mild, Itching, 12/30/16) Milk (Verified Adverse Reaction, Mild, Diarrhea, 12/30/16) Reported Meds & Prescriptions Reported Meds & Active Scripts Active Reported Proventil Hfa 6.7 GM Inh (Albuterol Sulfate) 90 Mcg/Act Aer 2 Puff INH Q4-6H PRN Review of Systems Except as stated in HPI: all other systems reviewed are Neg Physical Exam Narrative GENERAL: Thin female in no acute distress SKIN: Focused skin assessment warm/dry. Back rush to the bilateral antecubital HEAD: Normocephalic. EYES: No scleral icterus. No injection or drainage. ENT: Mucous membranes pink and moist. NECK: Supple CARDIOVASCULAR: Regular rate and rhythm. No murmur. RESPIRATORY: No accessory muscle use. MUSCULOSKELETAL: Tenderness to palpation throughout the low thoracic and superior lumbar spine both left right and midline. There is no obvious deformity. 5 out of 5 strength in the bilateral upper and lower extremities with reflexes and distal sensation intact NEUROLOGICAL: Awake and alert. Motor grossly within normal limits. Normal speech. PSYCHIATRIC: Appropriate mood and affect; insight and judgment normal. Data Data Last Documented VS Vital Signs Date Time Temp Pulse Resp B/P Pulse Ox O2 Delivery O2 Flow Rate FiO2 12/30/16 10:45 18 12/30/16 10:36 98.2 87 112/70 98 Orders Mri L Spine W&W/O Contrast (12/30/16 ) [facility] Medical Decision Making Medical Screen Exam Complete: Yes Emergency Medical Condition: Yes Medical Record Reviewed: Yes Differential Diagnosis 26-year-old female with active IV drug abuse here with complaint of back pain. Known cystic lesion in the thoracic/lumbar spine concerning for arachnoid cyst versus epidural abscess. Her symptoms however have not progressively worsened over the course of the last month. She is not any more symptomatic with regards to all or bladder dysfunction, paralysis, etc. I strong suspicion is that this is probably arachnoid cyst and would recommend repeating MRI to evaluate for any evolution. We would also then be able to see if she has any new evidence of infection abscess discitis or osteomyelitis. Narrative Course Patient placed on monitor. MRI of the spine ordered. Attempted IV access 2 on patient and then she decided that she wanted to leave AGAINST MEDICAL ADVICE. Patient states "if you can't get an IV that I'm not going to stay". Second nurse attempted to access patient and she refused, walking out in her hospital gown. Diagnosis Primary Impression: Left against medical advice Disposition: AGAINST MEDICAL ADVICE Condition: Stable Zaina Ga MD Dec 30, 2016 11:52
== END 2016-12-30 12:00 | disposition left against medical advice (07) ==
LOC: NEPD 10:35
DX: M54.9 Dorsalgia, unspecified (principal); F19.10 Other psychoactive substance abuse, uncomplicated; R32 Unspecified urinary incontinence; R50.9 Fever, unspecified; D64.9 Anemia, unspecified; J45.909 Unspecified asthma, uncomplicated; F31.9 Bipolar disorder, unspecified; M32.9 Systemic lupus erythematosus, unspecified; F43.10 Post-traumatic stress disorder, unspecified
CPT/HCPCS: 99281

== ENCOUNTER 2017-01-27 10:49 | Inpatient (IN) | payer BC, MEDICAID, OTHER ==
[~2017-01-27 10:49] MED LIST changes: +ALBU6.7H INH; -BENZ100 PO; -PRED20 PO; -PREN0.01 PO; -VENTAER INH; -ZITHTAB PO
--- NOTE | 2017-01-27 12:58 | PD ---
HPI Chief Complaint: Skin Problem Time Seen by Provider: 12:53 Travel History International Travel<30 days: No Contact w/Intl Traveler<30days: No History of Present Illness HPI 26-year-old female presents to the ED for evaluation of 3 day history of left arm redness pain and swelling. Onset after the patient injected heroin into the area. Patient endorses accompanying chills. She denies history of MRSA or previous abscess. Patient also complains of cyst in my back. She states that she has had right leg weakness and a limp 4 weeks which is worsened over the last few days. She endorses intermittent urinary incontinence. She states that she was admitted to the hospital in the past to have this taken care of but left AMA. She states that she is ready to be admitted to the hospital and have this taken care of definitively today. PFSH Past Medical History Anemia: Yes Asthma: Yes Bipolar Disorder: Yes Anxiety: Yes Cardiovascular Problems: No Diminished Hearing: No Immune Disorder: Yes (Lupus) Musculoskeletal: Yes (mass on spine) Neurologic: No Psychiatric: Yes (BIPOLAR, DEPRESSION, PTSD) Respiratory: Yes (ASTHMA) : 8 Para: 4 Miscarriage: 4 Past Surgical History Gynecologic Surgery: Yes (partial Hysterectomy 2014) Hysterectomy: Yes Other Surgery: No Social History Alcohol Use: No Tobacco Use: Yes (1/2-1PPD) Substance Use: Yes ( IV DRUG Herion LAST USED 2-3 DAYS AGO) Allergies-Medications (Allergen,Severity, Reaction): Coded Allergies: codeine (Unverified Allergy, Mild, Itching, 01/27/17) milk (Unverified Adverse Reaction, Mild, Diarrhea, 01/27/17) Reported Meds & Prescriptions Reported Meds & Active Scripts Active No Active Prescriptions or Reported Medications Review of Systems Except as stated in HPI: all other systems reviewed are Neg Physical Exam Narrative GENERAL: Well-nourished, well-developed white female no acute distress SKIN: Focused skin assessment warm/dry. SKIN: There is an indurated area in the left anterior arm, just proximal to the antecubital space which measures about 3 cm in diameter. It is fluctuant but there is no pointing or drainage. There is a zone of inflammation around it but no lymphangitis. HEAD: Normocephalic. EYES: No scleral icterus. No injection or drainage. PERRLA. EOMI. NECK: Supple, trachea midline. No JVD or lymphadenopathy. Patient retains full , active ROM of the neck. Flexion elicits pain in the thoracic and lumbar spine. CARDIOVASCULAR: Regular rate and rhythm without murmurs, gallops, or rubs. RESPIRATORY: Breath sounds clear and equal bilaterally. No accessory muscle use. GASTROINTESTINAL: Abdomen soft, non-tender, nondistended. Active bowel sounds. MUSCULOSKELETAL: No cyanosis, or edema. NEUROLOGICAL: Awake and alert. Cranial nerves II through XII intact. Motor and sensory grossly within normal limits. 3/5 strength of left dorsiflexion and plantarflexion. Absent patellar reflex on the left. Otherwise 5/5 muscle strength in all muscle groups. Normal speech. BACK: Nontender without obvious deformity. No CVA tenderness. Data Data Orders Orders Urinalysis - C+S If Indicated (01/27/17 12:10) Act Partial Throm Time (Ptt) (01/27/17 UNK) Prothrombin Time / Inr (Pt) (01/27/17 UNK) Comprehensive Metabolic Panel (01/27/17 UNK) Complete Blood Count With Diff (01/27/17 UNK) Mri L Spine W&W/O Contrast (01/27/17 ) Mri T Spine W & W/O Contrast (01/27/17 ) Wound Culture And Gram Stain (01/27/17 12:10) Potassium Chloride (Kcl) (01/27/17 14:00) Lorazepam Inj (Ativan Inj) (01/27/17 14:30) Clindamycin Inj (Cleocin Inj) (01/27/17 15:00) Ibuprofen (Motrin) (01/27/17 15:15) Gadodiamide Pf Inj (Omniscan Pf Inj) (01/27/17 15:49) Consult Neurosurgery (01/27/17 ) Invasive Rad Dept Consult (01/27/17 ) Admit Order (Ed Use Only) (01/27/17 16:53) Labs Laboratory Tests Test 01/27/17 00:00 01/27/17 12:10 White Blood Count 9.1 TH/MM3 Red Blood Count 4.38 MIL/MM3 Hemoglobin 13.5 GM/DL Hematocrit 39.6 % Mean Corpuscular Volume 90.3 FL Mean Corpuscular Hemoglobin 30.8 PG Mean Corpuscular Hemoglobin Concent 34.1 % Red Cell Distribution Width 13.8 % Platelet Count 281 TH/MM3 Mean Platelet Volume 8.7 FL Neutrophils (%) (Auto) 68.8 % Lymphocytes (%) (Auto) 22.8 % Monocytes (%) (Auto) 5.9 % Eosinophils (%) (Auto) 1.7 % Basophils (%) (Auto) 0.8 % Neutrophils # (Auto) 6.2 TH/MM3 Lymphocytes # (Auto) 2.1 TH/MM3 Monocytes # (Auto) 0.5 TH/MM3 Eosinophils # (Auto) 0.2 TH/MM3 Basophils # (Auto) 0.1 TH/MM3 CBC Comment DIFF FINAL Differential Comment Prothrombin Time 10.8 SEC Prothromb Time International Ratio 1.0 RATIO Activated Partial Thromboplast Time 29.0 SEC Blood Urea Nitrogen 11 MG/DL Creatinine 0.60 MG/DL Random Glucose 78 MG/DL Total Protein 7.3 GM/DL Albumin 3.7 GM/DL Calcium Level 8.9 MG/DL Alkaline Phosphatase 53 U/L Aspartate Amino Transf (AST/SGOT) 16 U/L Alanine Aminotransferase (ALT/SGPT) 18 U/L Total Bilirubin 0.4 MG/DL Sodium Level 143 MEQ/L Potassium Level 3.1 MEQ/L Chloride Level 108 MEQ/L Carbon Dioxide Level 27.3 MEQ/L Anion Gap 8 MEQ/L Estimat Glomerular Filtration Rate 120 ML/MIN Urine Color YELLOW Urine Turbidity HAZY Urine pH 6.5 Urine Specific [place] 1.030 Urine Protein 30 mg/dL Urine Glucose (UA) NEG mg/dL Urine Ketones NEG mg/dL Urine Occult Blood NEG Urine Nitrite NEG Urine Bilirubin NEG Urine Urobilinogen 4.0 MG/DL Urine Leukocyte Esterase MOD Urine RBC 2 /hpf Urine WBC 3 /hpf Urine Squamous Epithelial Cells 8 /hpf Urine Calcium Oxalate Crystals MANY /hpf Urine Bacteria RARE /hpf Urine Mucus MANY /lpf Microscopic Urinalysis Comment CULT NOT INDICATED MDM Medical Decision Making Medical Screen Exam Complete: Yes Emergency Medical Condition: Yes Differential Diagnosis abscess versus cellulitis versus arachnoid cyst versus IVDA versus other Narrative Course 36-year-old female with PMH of IVDA, thoracolumbar arachnoid cyst presents to the ED for evaluation of 3 day history of pain, swelling and redness of the left arm at heroin injection site. Patient endorses chills and nausea. Denies fever, limitations to range of motion of the extremity. Patient also states that she was diagnosed with a "back cyst" and left AMA but due to worsening symptoms of RLE weakness and limp she wants to be admitted and undergo treatment today. Vitals reviewed. Physical exam reveals a nontoxic-appearing white female in no acute distress. There is an abscess just proximal to the left antecubital space. No focal neural deficits. Mild weakness of plantar and dorsiflexion in the right lower extremity which the patient states is chronic. I&D was performed. Please see my procedure note for details. CBC unremarkable. CMP: Potassium 3.1 Patient was administered 40 mg KCl by mouth. UA: No culture indicated. CT thoracic spine: Previously seen epidural cystic fluid collection has enlarged and measures 8.1 cm in craniocaudal dimension and 2.0 cm in the AP dimension. It previously measured 7.9 x 1.6 cm. There is moderate to severe cord compression at this level epicenter at the level of the mid body of T11, worse since the prior exam. Right central spinal cord there is a bright signal which is questionable for focal mild degree of ischemic changes within the cord. Findings per radiology read. Assessment results of the CT with Dr. Whitt who recommends interventional radiology do a needle aspiration. Consult placed with Dr. Whitt. Consult placed with IR. I spoke with Dr. Quesada who agrees to accept the patient to the medical service. Please see medicine notes for disposition. Procedures Procedure Narrative INCISION AND DRAINAGE OF ABSCESS: The area was prepped and was sterilely draped. A subcutaneous wheal of 1 % Xylocaine with a total number 4 mL was used to anesthetize the area properly. A number 11 scalpel was used to make a 1 -cm incision across the area of the abscess. The abscess was drained, complex loculations were broken down, and irrigated with normal saline. Cultures were obtained. Quarter inch iodoform packing was placed in the wound. Sterile dressing applied. Patient advised to have packing removed in two days. Scripts No Active Prescriptions or Reported Meds Calli Goode Jan 27, 2017 12:58
[2017-01-27 13:08] LABS: PROTHROMBIN TIME - PATIENT 10.8 SEC (9.8-11.6)
[2017-01-27 13:10] LABS: AUTOMATED NEUTROPHIL # 6.2 TH/MM3 (1.8-7.7); BASOPHIL # 0.1 TH/MM3 (0-0.2); BASOPHIL % 0.8 % (0.0-2.0); EOSINOPHIL # 0.2 TH/MM3 (0-0.4); EOSINOPHIL % 1.7 % (0.0-4.0); HEMATOCRIT 39.6 % (35.0-46.0); HEMO FLAGS DIFF FINAL; LYMPH % 22.8 % (9.0-44.0); LYMPHOCYTE # 2.1 TH/MM3 (1.0-4.8); MEAN CELL VOLUME 90.3 FL (80.0-100.0); MEAN CORPUSCULAR HEMOGLOBIN 30.8 PG (27.0-34.0); MEAN CORPUSCULAR HGB CONC 34.1 % (32.0-36.0); MONO % 5.9 % (0.0-8.0); NEUT % 68.8 % (16.0-70.0); PLATELET COUNT 281 TH/MM3 (150-450); RED BLOOD COUNT 4.38 MIL/MM3 (4.00-5.30); RED CELL DISTRIBUTION WIDTH 13.8 % (11.6-17.2); WHITE BLOOD COUNT 9.1 TH/MM3 (4.0-11.0)
[2017-01-27 13:26] LABS: ALKALINE PHOSPHATASE 53 U/L (45-117); ALT (GPT) 18 U/L (10-53); AST (GOT) 16 U/L (15-37); BLOOD UREA NITROGEN 11 MG/DL (7-18); CHLORIDE 108 MEQ/L (98-107); GLOMERULAR FILTRATION RATE 120 ML/MIN (>89); POTASSIUM 3.1 MEQ/L (3.5-5.1); SODIUM (NA) 143 MEQ/L (136-145); TOTAL BILIRUBIN ADULT 0.4 MG/DL (0.2-1.0)
[2017-01-27 13:27] LABS: ANION GAP 8 MEQ/L (5-15); BICARBONATE 27.3 MEQ/L (21.0-32.0)
[2017-01-27 14:00] LABS: BACTERIA, URINE RARE /hpf; BLOOD, URINE NEG (NEG); CALCIUM OXALATE CRYSTALS,URINE MANY /hpf; COMMENT (UR) CULT NOT INDICATED; CULTURE IF INDICATED CULT NOT INDICATED; GLUCOSE,URINE NEG (NEG); KETONE, URINE NEG (NEG); MUCUS URINE MANY /lpf (OCC); NITRITE,URINE NEG (NEG); PH, URINE 6.5 (5.0-8.5); SQUAMOUS EPITHELIAL CELL URINE 8 /hpf (0-5); URINE COLOR YELLOW (YELLW/STRAW)
[2017-01-27] MEDS ORDERED: POTASSIUM CHLORIDE 20 MEQ CONTROLLED RELEASE TAB PO ONE (14:00)
[2017-01-27] MEDS ORDERED: LORazepam 2 MG/ML VIAL IV PUSH ONE (14:30)
[2017-01-27] MEDS ORDERED: CLINDAMYCIN INJ 900 MG in SODIUM CHLORIDE 0.9% INJ 100 ML IV ONE (15:00)
[2017-01-27] MEDS ORDERED: IBUPROFEN 800 MG TAB PO ONE (15:15)
[2017-01-27] MEDS ORDERED: GADODIAMIDE PF 287 MG/ML 20 ML VIAL (for RAD MRI) IVCONTRAST ONE (15:49)
--- NOTE | 2017-01-27 16:33 | RADRPT ---
EXAM DATE/TIME: 01/27/2017 15:28 This report includes an Addendum and supersedes previous reports for this exam. [facility] COMPARISON: MRI LUMBAR SPINE W & W/O CONTRAST, January 27, 2017, 15:28. MRI THORACIC SPINE W & W/O CONTRAST, November 29, 2016, 7:47. INDICATIONS : Osteomyelitis. CONTRAST: 10 cc Omniscan (gadodiamide) IV MEDICAL HISTORY : IVDA SURGICAL HISTORY : section. ENCOUNTER: Initial ACUITY: 1 day PAIN SCORE: 6/10 LOCATION: Paraspinal TECHNIQUE: Multiplanar multisequence MRI of the thoracic spine was performed. FINDINGS: The marrow signal appears intact. No significant compression deformities are seen. No significant c ord compression is identified. The spinal cord appears intact. T1-T2: No appreciable compromise to the thecal sac, spinal cord, or the exiting nerve roots are seen. The neural foramina are grossly patent bilaterally. T2-T3: No appreciable compromise to the thecal sac, spinal cord, or the exiting nerve roots are seen. The neural foramina are grossly patent bilaterally. T3-T4: No appreciable compromise to the thecal sac, spinal cord, or the exiting nerve roots are seen. The neural foramina are grossly patent bilaterally. T4-T5: No appreciable compromise to the thecal sac, spinal cord, or the exiting nerve roots are seen. The neural foramina are grossly patent bilaterally. T5-T6: No appreciable compromise to the thecal sac, spinal cord, or the exiting nerve roots are seen. The neural foramina are grossly patent bilaterally. T6-T7: No appreciable compromise to the thecal sac, spinal cord, or the exiting nerve roots are seen. The neural foramina are grossly patent bilaterally. T7-T8: No appreciable compromise to the thecal sac, spinal cord, or the exiting nerve roots are seen. The neural foramina are grossly patent bilaterally. T8-T9: No appreciable compromise to the thecal sac, spinal cord, or the exiting nerve roots are seen. The neural foramina are grossly patent bilaterally. T9-T10: No appreciable compromise to the thecal sac, spinal cord, or the exiting nerve roots are see n. The neural foramina are grossly patent bilaterally. T10-T11: No appreciable compromise to the thecal sac, spinal cord, or the exiting nerve roots are se en. The neural foramina are grossly patent bilaterally. T11-T12: The previously seen epidural cystic fluid collection at this level which extends down to the level of mid body of L1 has enlarged and measures 8.1 cm in craniocaudal dimension, it measured 7.9 cm previously. It measures 2.0 cm in AP diameter, it measured 1.6 cm previously and there is moderate to severe cord compression at this level epicentered at the level of mid body of T11 worse since the prior exam. In the right side of the spinal cord at this level there is a bright signal questionable focal mild degree of ischemic changes within the cord. T12-L1: The above-mentioned epidural process extends down to this level, however no significant theca l sac stenosis is identified at this level. CONCLUSION: Enlarging epidural fluid collection epicentered at the T11-12 with moderate to severe cord compression at mid level T11 vertebral body and worse since the prior exam. There is no abnorma l enhancement of this process and possibility of CSF leak into the epidural space should be entertain ed. The appearance is also very unlikely to represent an epidural hematoma or abscess. El Jennings MD on January 27, 2017 at 16:17 Board Certified Radiologist. This report was verified electronically. ADDENDUM: Findings were discussed with Dr. Moreira on 01/27/2017 at the time of this dictation. El Jennings MD on January 27, 2017 at 16:45 Board Certified Radiologist. This report was verified electronically.
--- NOTE | 2017-01-27 16:35 | RADRPT ---
EXAM DATE/TIME: 01/27/2017 15:28 [facility] COMPARISON: No previous studies available for comparison. INDICATIONS : Osteomyelitis. CONTRAST: 10 cc Omniscan (gadodiamide) IV MEDICAL HISTORY : IVDA SURGICAL HISTORY : section. ENCOUNTER: Initial ACUITY: 1 day PAIN SCORE: 5/10 LOCATION: Paraspinal TECHNIQUE: Multiplanar multisequence MRI of the lumbar spine was performed with and without contrast. FINDINGS: The marrow signal appears intact. No significant compression deformities, spondylolisis, or spondylo lesthesis is seen. L1-L2: No appreciable compromise to the thecal sac, or the exiting nerve roots is seen. The neural foramina and lateral recesses are patent bilaterally. L2-L3: No appreciable compromise to the thecal sac, or the exiting nerve roots is seen. The neural foramina and lateral recesses are patent bilaterally. L3-L4: No appreciable compromise to the thecal sac, or the exiting nerve roots is seen. The neural foramina and lateral recesses are patent bilaterally. L4-L5: No appreciable compromise to the thecal sac, or the exiting nerve roots is seen. The neural foramina and lateral recesses are patent bilaterally. L5-S1: No appreciable compromise to the thecal sac, or the exiting nerve roots is seen. The neural foramina and lateral recesses are patent bilaterally. CONCLUSION: Essentially unremarkable lumbar spine study and please refer to thoracic spine MRI fo r the description of the findings epicentered at T11-12 in the epidural space posteriorly. El Jennings MD on January 27, 2017 at 16:32 Board Certified Radiologist. This report was verified electronically.
--- NOTE | 2017-01-27 17:14 | HHI.HP ---
[facility] No Primary Care Physician Admission Diagnosis arachnoid cyst T11-12, abscess LEFT arm Diagnoses: Chief Complaint: Pain on left leg and numbness Travel History International Travel<30 Days: No Contact w/Intl Traveler <30 Da: No Traveled to Known Affected Are: No History of Present Illness This is a pleasant 26 y/o Female with history of Heroin Abuse and IDU, she was admitted to [facility] due to Spinal Mass with probable epidural abscess, she was started management but she signed against Medical Advice, then she came to ER again with pain 10/10 in intensity and associated Urinary Incontinence for one week, the case was discussed by ER specialist with Neurosurgery specialist, recommended Interventional Radiology to drain the Cyst and evaluate if is an infectious process versus, Cyst. was recommended to start management with Vancomycin and Cefepime, and probable drainage to follow, she was ruled out Hepatitis and also HIV on that opportunity , but she signed again AMA, today came to ER with left arm erythema and swelling, onset after injected Heroin into this area, also of Right leg pain from the thigh to the Right first toe. stable in her room in ER, evaluated in the presence at all times of her Fiance Mr. Antwon Galicia. Review of Systems Constitutional: DENIES: Fever, Chills, Change in appetite Endocrine: DENIES: Heat/cold intolerance Eyes: DENIES: Blurred vision, Eye pain Except as stated in HPI: all other systems reviewed are Neg Past Family Social History Past Medical History Anemia Asthma Bipolar disorder Hepatitis C Lupus Past Surgical History Hysterectomy C section x 4 Neck surgery when she was [age] years of age Reported Medications Reported Meds & Active Scripts Active No Active Prescriptions or Reported Medications Allergies: Coded Allergies: codeine (Unverified Allergy, Mild, Itching, 01/27/17) milk (Unverified Adverse Reaction, Mild, Diarrhea, 01/27/17) Active Ordered Medications Current Medications Medications (Trade) Dose Ordered Sig/Fredi Route Start Time Stop Time Status Last Admin Sodium Chloride 1,000 ml @ 100 mls/hr Q10H IV 01/27/17 17:05 (NS Flush) 2 ml UNSCH PRN IV FLUSH 01/27/17 17:15 (NS Flush) 2 ml BID IV FLUSH 01/27/17 21:00 (Tylenol) 650 mg Q4H PRN PO 01/27/17 17:15 (Zofran Inj) 4 mg Q6H PRN IVP 01/27/17 17:15 (Narcan Inj) 0.4 mg UNSCH PRN IV 01/27/17 17:15 (Demetra-Colace) 1 tab BID PO 01/27/17 21:00 (Milk Of Magnesia Liq) 30 ml Q12H PRN PO 01/27/17 17:15 (Senokot) 17.2 mg Q12H PRN PO 01/27/17 17:15 (Dulcolax Supp) 10 mg DAILY PRN RECTAL 01/27/17 17:15 (Lactulose Liq) 30 ml DAILY PRN PO 01/27/17 17:15 Pharmacy Profile Note 0 ml @ 0 mls/hr UNSCH OTHER 01/27/17 17:15 UNV Cefepime HCl 2000 mg/Sodium Chloride 100 ml @ 200 mls/hr Q8H IV 01/27/17 18:00 Vancomycin HCl 1000 mg/Sodium Chloride 250 ml @ 250 mls/hr ONCE ONCE IV 01/27/17 18:00 01/27/17 18:59 Family History Asked and denied Social History Crack cocaine Tobacco dependence Physical Exam Physical Exam GENERAL: Well-developed Female in no acute distress sleeping in ER. SKIN: Focused skin assessment warm/dry. HEAD: Atraumatic. Normocephalic. EYES: Pupils equal and round. No scleral icterus. No injection or drainage. ENT: No nasal bleeding or discharge. Mucous membranes pink and moist. NECK: Trachea midline. No JVD. CARDIOVASCULAR: Regular rate and rhythm. No murmur appreciated. RESPIRATORY: No accessory muscle use. Clear to auscultation. Breath sounds equal bilaterally. GASTROINTESTINAL: Abdomen soft, non-tender, nondistended. Hepatic and splenic margins not palpable. MUSCULOSKELETAL: No obvious deformities. No clubbing. No cyanosis. No edema. NEUROLOGICAL: Awake and alert. No obvious cranial nerve deficits. Motor grossly within normal limits. Normal speech. PSYCHIATRIC: Appropriate mood and affect; insight and judgment normal. Laboratory Laboratory Tests Test 01/27/17 00:00 01/27/17 12:10 White Blood Count 9.1 Red Blood Count 4.38 Hemoglobin 13.5 Hematocrit 39.6 Mean Corpuscular Volume 90.3 Mean Corpuscular Hemoglobin 30.8 Mean Corpuscular Hemoglobin Concent 34.1 Red Cell Distribution Width 13.8 Platelet Count 281 Mean Platelet Volume 8.7 Neutrophils (%) (Auto) 68.8 Lymphocytes (%) (Auto) 22.8 Monocytes (%) (Auto) 5.9 Eosinophils (%) (Auto) 1.7 Basophils (%) (Auto) 0.8 Neutrophils # (Auto) 6.2 Lymphocytes # (Auto) 2.1 Monocytes # (Auto) 0.5 Eosinophils # (Auto) 0.2 Basophils # (Auto) 0.1 CBC Comment DIFF FINAL Differential Comment Prothrombin Time 10.8 Prothromb Time International Ratio 1.0 Activated Partial Thromboplast Time 29.0 Blood Urea Nitrogen 11 Creatinine 0.60 Random Glucose 78 Total Protein 7.3 Albumin 3.7 Calcium Level 8.9 Alkaline Phosphatase 53 Aspartate Amino Transf (AST/SGOT) 16 Alanine Aminotransferase (ALT/SGPT) 18 Total Bilirubin 0.4 Sodium Level 143 Potassium Level 3.1 Chloride Level 108 Carbon Dioxide Level 27.3 Anion Gap 8 Estimat Glomerular Filtration Rate 120 Urine Color YELLOW Urine Turbidity HAZY Urine pH 6.5 Urine Specific Cle[place] 1.030 Urine Protein 30 Urine Glucose (UA) NEG Urine Ketones NEG Urine Occult Blood NEG Urine Nitrite NEG Urine Bilirubin NEG Urine Urobilinogen 4.0 Urine Leukocyte Esterase MOD Urine RBC 2 Urine WBC 3 Urine Squamous Epithelial Cells 8 Urine Calcium Oxalate Crystals MANY Urine Bacteria RARE Urine Mucus MANY Microscopic Urinalysis Comment CULT NOT INDICATED Date/Time Source Procedure Growth Status 01/27/17 12:10 Wound Arm Gram Stain Pending Received 01/27/17 12:10 Wound Arm Wound Culture Pending Received Result Diagram: 01/27/17 0000 01/27/17 0000 Caprini VTE Risk Assessment Caprini VTE Risk Assessment: Mod/High Risk (score >= 2) Caprini Risk Assessment Model Point Value = 1 Point Value = 2 Point Value = 3 Point Value = 5 Age 41-60 Minor surgery BMI > 25 kg/m2 Swollen legs Varicose veins or History of unexplained or recurrent spontaneous Oral contraceptives or hormone replacement Sepsis (< 1 month) Serious lung disease, including pneumonia (< 1 month) Abnormal pulmonary function Acute myocardial infarction Congestive heart failure (< 1 month) History of inflammatory bowel disease Medical patient at bed rest Age 61-74 Arthroscopic surgery Major open surgery (> 45 min) Laparoscopic surgery (> 45 min) Malignancy Confined to bed (> 72 hours) Immobilizing plaster cast Central venous access Age >= 75 History of VTE Family history of VTE Factor V Leiden Prothrombin [id number] Lupus anticoagulant Anticardiolipin antibodies Elevated serum homocysteine Heparin-induced thrombocytopenia Other congenital or acquired thrombophilia Stroke (< 1 month) Elective arthroplasty Hip, pelvis, or leg fracture Acute spinal cord injury (< 1 month) Prophylaxis Regimen Total Risk Factor Score Risk Level Prophylaxis Regimen 0-1 Low Early ambulation 2 Moderate Order ONE of the following: *Sequential Compression Device (SCD) *Heparin 5000 units SQ BID 3-4 Higher Order ONE of the following medications: *Heparin 5000 units SQ TID *Enoxaparin/Lovenox 40 mg SQ daily (WT < 150 kg, CrCl > 30 mL/min) *Enoxaparin/Lovenox 30 mg SQ daily (WT < 150 kg, CrCl > 10-29 mL/min) *Enoxaparin/Lovenox 30 mg SQ BID (WT < 150 kg, CrCl > 30 mL/min) AND/OR *Sequential Compression Device (SCD) 5 or more Highest Order ONE of the following medications: *Heparin 5000 units SQ TID (Preferred with Epidurals) *Enoxaparin/Lovenox 40 mg SQ daily (WT < 150 kg, CrCl > 30 mL/min) *Enoxaparin/Lovenox 30 mg SQ daily (WT < 150 kg, CrCl > 10-29 mL/min) *Enoxaparin/Lovenox 30 mg SQ BID (WT < 150 kg, CrCl > 30 mL/min) AND *Sequential Compression Device (SCD) Assessment and Plan Assessment and Plan 1. 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 today status post CT thoracic spine: Previously seen epidural cystic fluid collection has enlarged and measures 8.1 cm in craniocaudal dimension and 2.0 cm in the AP dimension. It previously measured 7.9 x 1.6 cm. There is moderate to severe cord compression at this level epicenter at the level of the mid body of T11, worse since the prior exam. Right central spinal cord There is concern about an epidural abscess in this case considering patient's history of IV drug use Right central spinal cord there is a bright signal which is questionable for focal mild degree of ischemic changes within the cord. Findings per radiology read. discussed with Neurosurgery specialist Doctor Peri, consult placed with IR. started on [id number] and Cefepime follow 2. Left arm cellulitis asked for left upper arm US 3. Continuous IV Drug abuse the last time she was abusing Heroin was 2 days ago , strongly recommended to stop behavior 4. Tobacco dependence/Alcohol abuse Strongly recommended to stop smoking and drinking alcohol CIWA protocol and Nicotine path 5. Hypokalemia replaced DVT prophylaxis with SCDs due to probable procedure to follow. Code Status Full Code Discussed Condition With Code Status Full Code Discussed Condition With patient, her Fiance and ER specialist. Physician Certification 2 Midnight Certification Type: Admission for Inpatient Services Order for Inpatient Services The services are ordered in accordance with Medicare regulations or non- Medicare payer requirements, as applicable. In the case of services not specified as inpatient-only, they are appropriately provided as inpatient services in accordance with the 2-midnight benchmark. Estimated LOS (days): 3 days is the estimated time the patient will need to remain in the hospital, assuming treatment plan goals are met and no additional complications. Post-Hospital Plan: Not yet determined Faizan Fraser MD Jan 27, 2017 17:14
[2017-01-27] MEDS ORDERED: ACETAMINOPHEN 325 MG TAB PO PRN (17:15)
[2017-01-27] MEDS ORDERED: MAGNESIUM HYDROXIDE SUSP 30 ML CUP PO PRN (17:15)
[2017-01-27] MEDS ORDERED: BISACODYL 10 MG SUPP RECTAL PRN (17:15)
[2017-01-27] MEDS ORDERED: LACTULOSE SYRUP 20 GM/30 ML CUP PO PRN (17:15)
[2017-01-27] MEDS ORDERED: SENNOSIDES 8.6 MG TAB PO PRN (17:15)
[2017-01-27] MEDS ORDERED: Vancomycin Consult Pharmacy 1 EA OTHER SCH (17:15)
[2017-01-27] MEDS ORDERED: NALOXONE HCL 0.4 MG/ML AMP IV PRN (17:15)
[2017-01-27] MEDS ORDERED: SODIUM CHLORIDE 0.9% FLUSH 10 ML FLUSH IV FLUSH PRN (17:15)
[2017-01-27 17:29] VITALS: O2SAT 99
[2017-01-27 17:45] VITALS: BP 104/57; PULSE 81; RESP 16; O2SAT 98
[2017-01-27] MEDS: SODIUM CHLOR 0.9% 1000 ML INJ 1,000 ML IV SCH (17:45)
[2017-01-27] MEDS: NICOTINE 21 MG/24 HR PATCH T-DERMAL SCH (18:00)
[2017-01-27] MEDS ORDERED: VANCOMYCIN 1,000 MG/NS 250 ML IV ONE ×2 (18:00)
--- NOTE | 2017-01-27 18:33 | RADRPT ---
EXAM DATE/TIME: 01/27/2017 18:02 [facility] COMPARISON: No previous studies available for comparison. INDICATIONS : Left arm swelling. MEDICAL HISTORY : Glasses. Asthma. Bipolar. Depression. PTSD. Anxiety. Lupus. Substance abuse. SURGICAL HISTORY : Hysterectomy. ENCOUNTER: Initial ACUITY: 1 day PAIN SCORE: 0/10 LOCATION: Left arm. FINDINGS: There is spontaneous flow documented in the brachial, basilic, axillary, and subclavian veins. The v essels are compressible and augmentation response is documented. No filling defects are seen. The f low is phasic with respiration. Direction of flow in the jugular vein is caudal. The patient refuse d any further imaging and cephalic vein could not be examined. CONCLUSION: No evidence for thrombus down to the level of the cephalic vein and cephalic vein is not evaluated si nce the patient refused any further imaging at that point. El Jennings MD on January 27, 2017 at 18:30 Board Certified Radiologist. This report was verified electronically.
[2017-01-27] MEDS: POTASSIUM CHLOR 20 MEQ PREMIX 100 ML IV SCH ×2 (19:56→22:36)
[2017-01-27] MEDS ORDERED: VANCOMYCIN INJ 1,500 MG in SODIUM CHLORID 0.9% 500 ML INJ 500 ML IV ONE (20:00)
[2017-01-27 20:18] VITALS: BP 127/78; PULSE 89; RESP 18; TEMP 98; O2SAT 98
[2017-01-27] MEDS: SODIUM CHLORIDE 0.9% FLUSH 10 ML FLUSH IV FLUSH SCH (21:00)
[2017-01-27] MEDS: DOCUSATE SODIUM 50 MG/SENNA 8.6 MG TAB PO SCH (21:00)
[2017-01-27] MEDS: CEFEPIME INJ 2,000 MG in SODIUM CHLORIDE 0.9% INJ 100 ML IV SCH (22:37)
[2017-01-27] MEDS: ACETAMINOPHEN/HYDROcodone 325 MG/7.5 MG TAB PO PRN (23:32)
[2017-01-28] VITALS: BP 104/58; PULSE 78; RESP 20; TEMP 96.8; O2SAT 97
[2017-01-28] MEDS: CEFEPIME INJ 2,000 MG in SODIUM CHLORIDE 0.9% INJ 100 ML IV SCH ×4 (02:21→18:00)
[2017-01-28] MEDS: VANCOMYCIN 1,000 MG/NS 250 ML IV SCH ×4 (06:00→17:00)
[2017-01-28] MEDS: ACETAMINOPHEN/HYDROcodone 325 MG/7.5 MG TAB PO PRN ×2 (06:01→10:33)
[2017-01-28] MEDS: SODIUM CHLOR 0.9% 1000 ML INJ 1,000 ML IV SCH ×2 (06:02→13:45)
[2017-01-28 08:00] VITALS: BP 105/52; PULSE 70; RESP 16; TEMP 96.5; O2SAT 98
[2017-01-28 08:18] LABS: AUTOMATED NEUTROPHIL # 5.4 TH/MM3 (1.8-7.7); BASOPHIL # 0.1 TH/MM3 (0-0.2); BASOPHIL % 1.3 % (0.0-2.0); EOSINOPHIL # 0.2 TH/MM3 (0-0.4); EOSINOPHIL % 2.8 % (0.0-4.0); HEMATOCRIT 34.9 % (35.0-46.0); HEMO FLAGS DIFF FINAL; LYMPH % 25.8 % (9.0-44.0); LYMPHOCYTE # 2.2 TH/MM3 (1.0-4.8); MEAN CORPUSCULAR HEMOGLOBIN 30.9 PG (27.0-34.0); MONO % 6.1 % (0.0-8.0); PLATELET COUNT 243 TH/MM3 (150-450); RED BLOOD COUNT 3.83 MIL/MM3 (4.00-5.30); RED CELL DISTRIBUTION WIDTH 14.3 % (11.6-17.2); WHITE BLOOD COUNT 8.4 TH/MM3 (4.0-11.0)
--- NOTE | 2017-01-28 08:33 | HHI.PR ---
Subjective Remarks This is a pleasant 26 y/o Female with history of Heroin Abuse and IDU, she was admitted to [facility] due to Spinal Mass with probable epidural abscess, she was started management but she signed against Medical Advice, then she came to ER again with pain 10/10 in intensity and associated Urinary Incontinence for one week, the case was discussed by ER specialist with Neurosurgery specialist, recommended Interventional Radiology to drain the Cyst and evaluate if is an infectious process versus, Cyst. was recommended to start management with Vancomycin and Cefepime, and probable drainage to follow, she was ruled out Hepatitis and also HIV on that opportunity , but she signed again AMA, today came to ER with left arm erythema and swelling, onset after injected Heroin into this area, also of Right leg pain from the thigh to the Right first toe. stable in her room in ER, evaluated in the presence at all times of her Fiance Mr. Antwon Galicia. 01/28: The patient was seen in her bedroom in the presence of nurse Miss Carey present at all times while I was in the room The nurse was just telling me about her Medicines and her Pain level, the patient turn to me and told me to stop talking with the nurse, was offensive with the nurse using the F word all the time and fired her as a nurse, was aggressive with the nurse and with me, will consult Psychiatry specialist, the patient refused some of the management in am, stable at this time following recommendations by Neurosurgery and Interventional Radiology. Objective Vital Signs Date Time Temp Pulse Resp B/P (MAP) Pulse Ox O2 Delivery O2 Flow Rate FiO2 01/28/17 00:00 96.8 78 20 104/58 (73) 97 01/27/17 20:36 01/27/17 20:18 98.0 89 18 127/78 (94) 98 Room Air 01/27/17 17:45 81 16 104/57 (73) 98 Room Air 01/27/17 17:29 99 21 I/O 01/27/17 01/27/17 01/27/17 01/28/17 01/28/17 01/28/17 07:00 15:00 23:00 07:00 15:00 23:00 Intake Total 100 ml 0 ml Balance 100 ml 0 ml Intake Oral 0 ml 0 ml IV Total 100 ml # Voids 0 2 # Bowel Movements 0 0 Result Diagram: 01/28/17 0757 01/27/17 0000 Procedures None Other Results Laboratory Tests Test 01/27/17 00:00 01/27/17 12:10 01/28/17 07:57 01/28/17 07:58 Prothrombin Time 10.8 SEC Prothromb Time International Ratio 1.0 RATIO Activated Partial Thromboplast Time 29.0 SEC Estimat Glomerular Filtration Rate 120 ML/MIN Beta HCG, Qualitative LESS THAN 1 MIU/ML Urine Color YELLOW Urine Turbidity HAZY Urine pH 6.5 Urine Specific Breese 1.030 Urine Protein 30 mg/dL Urine Glucose (UA) NEG mg/dL Urine Ketones NEG mg/dL Urine Occult Blood NEG Urine Nitrite NEG Urine Bilirubin NEG Urine Urobilinogen 4.0 MG/DL Urine Leukocyte Esterase MOD Urine RBC 2 /hpf Urine WBC 3 /hpf Urine Squamous Epithelial Cells 8 /hpf Urine Calcium Oxalate Crystals MANY /hpf Urine Bacteria RARE /hpf Urine Mucus MANY /lpf Microscopic Urinalysis Comment CULT NOT INDICATED Urine Opiates Screen POS Urine Barbiturates Screen NEG Urine Amphetamines Screen NEG Urine Benzodiazepines Screen NEG Urine Cocaine Screen POS Urine Cannabinoids Screen NEG White Blood Count 8.4 TH/MM3 Red Blood Count 3.83 MIL/MM3 Hemoglobin 11.9 GM/DL Hematocrit 34.9 % Mean Corpuscular Volume 91.0 FL Mean Corpuscular Hemoglobin 30.9 PG Mean Corpuscular Hemoglobin Concent 34.0 % Red Cell Distribution Width 14.3 % Platelet Count 243 TH/MM3 Mean Platelet Volume 8.5 FL Neutrophils (%) (Auto) 64.0 % Lymphocytes (%) (Auto) 25.8 % Monocytes (%) (Auto) 6.1 % Eosinophils (%) (Auto) 2.8 % Basophils (%) (Auto) 1.3 % Neutrophils # (Auto) 5.4 TH/MM3 Lymphocytes # (Auto) 2.2 TH/MM3 Monocytes # (Auto) 0.5 TH/MM3 Eosinophils # (Auto) 0.2 TH/MM3 Basophils # (Auto) 0.1 TH/MM3 CBC Comment DIFF FINAL Differential Comment Objective Remarks GENERAL: Well-developed Female in no acute distress sleeping in ER. SKIN: Focused skin assessment warm/dry. HEAD: Atraumatic. Normocephalic. EYES: Pupils equal and round. No scleral icterus. No injection or drainage. ENT: No nasal bleeding or discharge. Mucous membranes pink and moist. NECK: Trachea midline. No JVD. CARDIOVASCULAR: Regular rate and rhythm. No murmur appreciated. RESPIRATORY: No accessory muscle use. Clear to auscultation. Breath sounds equal bilaterally. GASTROINTESTINAL: Abdomen soft, non-tender, nondistended. Hepatic and splenic margins not palpable. MUSCULOSKELETAL: No obvious deformities. No clubbing. No cyanosis. No edema. NEUROLOGICAL: Awake and alert. No obvious cranial nerve deficits. Motor grossly within normal limits. Normal speech. PSYCHIATRIC: Appropriate mood and affect; insight and judgment normal. Medications and IVs Current Medications Medications (Trade) Dose Ordered Sig/Fredi Route Start Time Stop Time Status Last Admin Sodium Chloride 1,000 ml @ 100 mls/hr Q10H IV 01/27/17 17:05 01/28/17 06:02 (NS Flush) 2 ml UNSCH PRN IV FLUSH 01/27/17 17:15 (NS Flush) 2 ml BID IV FLUSH 01/27/17 21:00 (Tylenol) 650 mg Q4H PRN PO 01/27/17 17:15 (Zofran Inj) 4 mg Q6H PRN IVP 01/27/17 17:15 (Narcan Inj) 0.4 mg UNSCH PRN IV 01/27/17 17:15 (Demetra-Colace) 1 tab BID PO 01/27/17 21:00 (Milk Of Magnesia Liq) 30 ml Q12H PRN PO 01/27/17 17:15 (Senokot) 17.2 mg Q12H PRN PO 01/27/17 17:15 (Dulcolax Supp) 10 mg DAILY PRN RECTAL 01/27/17 17:15 (Lactulose Liq) 30 ml DAILY PRN PO 01/27/17 17:15 Pharmacy Profile Note 0 ml @ 0 mls/hr UNSCH OTHER 01/27/17 17:15 Cefepime HCl 2000 mg/Sodium Chloride 100 ml @ 200 mls/hr Q8H IV 01/27/17 18:00 01/28/17 02:21 ([place] 7.5-325 Mg) 1 tab Q4H PRN PO 01/27/17 18:00 01/28/17 06:01 (Habitrol 21 Mg Patch.24 Hr) 1 patch DAILY T-DERMAL 01/27/17 18:00 Miscellaneous Information 1 DAILY T-DERMAL 01/28/17 09:00 Vancomycin HCl 1000 mg/Sodium Chloride 250 ml @ 250 mls/hr Q12H IV 01/28/17 06:00 01/28/17 06:00 Miscellaneous Information SPECIFIC LAB TO BE ... ONCE ONCE .XX 01/29/17 05:45 01/29/17 05:46 A/P Assessment and Plan 1. 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 today status post CT thoracic spine: Previously seen epidural cystic fluid collection has enlarged and measures 8.1 cm in craniocaudal dimension and 2.0 cm in the AP dimension. It previously measured 7.9 x 1.6 cm. There is moderate to severe cord compression at this level epicenter at the level of the mid body of T11, worse since the prior exam. Right central spinal cord There is concern about an epidural abscess in this case considering patient's history of IV drug use Right central spinal cord there is a bright signal which is questionable for focal mild degree of ischemic changes within the cord. Findings per radiology read. discussed with Neurosurgery specialist Doctor Peri, consult placed with IR. started on [id number] and Cefepime follow blood cultures, awaiting IR and Neurosurgery evaluation. 2. Left arm cellulitis Improving, Venous US no thrombosis found. 3. Continuous IV Drug abuse the last time she was abusing Heroin was 2 days ago , strongly recommended to stop behavior 4. Tobacco dependence/Alcohol abuse Strongly recommended to stop smoking and drinking alcohol CIWA protocol and Nicotine path 5. Hypokalemia replaced 6. UTI positive Urinalysis following culture. DVT prophylaxis with SCDs due to probable procedure to follow. Code Status Full Code Discussed Condition With Patient and nurse in the room Miss Carey, all questions answered to the best of my abilities. patient using vulgar language and aggressive with medical team and nurse, fired Miss Carey for no reason. consult place for Psychiatry specialist evaluation. Discharge Planning Once cleared by specialists. Faizan Fraser MD Jan 28, 2017 08:33
[2017-01-28 08:42] LABS: ANION GAP 5 MEQ/L (5-15); AST (GOT) 9 U/L (15-37); BICARBONATE 23.9 MEQ/L (21.0-32.0); BLOOD UREA NITROGEN 8 MG/DL (7-18); CHLORIDE 111 MEQ/L (98-107); GLOMERULAR FILTRATION RATE 138 ML/MIN (>89); POTASSIUM 4.3 MEQ/L (3.5-5.1); SODIUM (NA) 140 MEQ/L (136-145)
[2017-01-28] MEDS: DOCUSATE SODIUM 50 MG/SENNA 8.6 MG TAB PO SCH (08:46)
[2017-01-28] MEDS: SODIUM CHLORIDE 0.9% FLUSH 10 ML FLUSH IV FLUSH SCH ×2 (08:47→21:00)
[2017-01-28 08:49] LABS: ALKALINE PHOSPHATASE 39 U/L (45-117); ALT (GPT) 12 U/L (10-53); TOTAL BILIRUBIN ADULT 0.2 MG/DL (0.2-1.0)
[2017-01-28] MEDS: REMOVE OLD PATCH T-DERMAL SCH (09:00)
[2017-01-28] MEDS: NICOTINE 21 MG/24 HR PATCH T-DERMAL SCH (10:27)
[2017-01-28] MEDS ORDERED: ONDANSETRON HCL 4 MG/2 ML VIAL IV PUSH ONE (12:00)
[2017-01-28] MEDS ORDERED: ePHEDrine/NS 25 MG/5 ML SYR IV ONE (12:00)
[2017-01-28] MEDS ORDERED: PROPOFOL 200 MG/20 ML AMP IV ONE (12:00)
[2017-01-28] MEDS ORDERED: LACTATED RINGER'S 1000 ML INJ 1,000 ML IV ONE (12:00)
[2017-01-28] MEDS ORDERED: ACETAMINOPHEN 1000 MG/100 ML VIAL IV ONE (12:01)
[2017-01-28] MEDS ORDERED: fentaNYL CITRATE 250 MCG/5 ML AMP ONE (12:01)
[2017-01-28] MEDS ORDERED: MIDAZOLAM HCL 2 MG/2 ML VIAL ONE (12:01)
[2017-01-28] MEDS ORDERED: FAMOTIDINE 20 MG/2 ML VIAL ONE (12:02)
[2017-01-28] MEDS ORDERED: HYDROmorphone HCL PF 2 MG/ML VIAL ONE (12:02)
--- NOTE | 2017-01-28 12:08 | EKG ---
Date Performed: 01/28/2017 Time Performed: 08:19:28 PTAGE: 26 years EKG: SINUS BRADYCARDIA WITH SINUS ARRHYTHMIA BORDERLINE ECG NO PREVIOUS TRACING DOCTOR: Ward Davila Interpretating Date/Time 01/28/2017 12:07:12
[2017-01-28] MEDS ORDERED: GELFOAM SIZE 100 ONE ×2 (12:17→14:07)
[2017-01-28] MEDS ORDERED: BUPIVACAINE/EPINEPHRINE 0.5% PF 10 ML VIAL ONE ×2 (12:17→12:22)
[2017-01-28] MEDS ORDERED: THROMBIN (TOPICAL) 5,000 UNIT VIAL ONE ×2 (12:17→14:07)
[2017-01-28] MEDS ORDERED: VANCOMYCIN HCL 1000 MG VIAL ONE (12:22)
--- NOTE | 2017-01-28 12:42 | MB ---
cc: DARLENE CHI M.D. DATE OF CONSULTATION: 01/28/2017 REASON FOR CONSULTATION Thoracolumbar spinal cyst with cord compression. HISTORY OF PRESENT ILLNESS This is a 26-year-old female who has a history of chronic low back pain along with radiation to the lower extremities, right more than left. She was diagnosed with a thoracolumbar intraspinal cystic abnormality several months ago and has been to multiple hospitals including [facility] in [place] as well as subsequently transferred to [facility] in [place] where she was seen by Dr. Santillan from neurosurgery who recommended resection of the cyst. She decided not to have this done and left the hospital. She subsequently presented to the emergency room here two months ago and had an MRI scan which revealed this cyst extending in the dorsal aspect of the spinal canal from the T10 to L1 levels with cord compression. The cyst has two components to it, although there is not much enhancement noted. Dr. Barry from neurosurgery reviewed the MRI scan at that time and recommended admission with consideration of CT-guided aspiration. The patient and at that time complained of incontinence and had some weakness in the legs, right more than left, particularly distally. She decided to leave against medical advice and subsequently presented again a month ago with worsening symptoms and again decided not to be admitted or have any further evaluation or intervention. She now presents to the emergency room with complaints of worsening back pain despite the use of IV heroin and Dilaudid. Her main reason for coming is because she developed cellulitis in the left arm at an injection site in the past three days or so. She also relates that she is progressively worsening and she cannot lift her right foot up and has numbness in both legs and urinary incontinence for several months along with weakness. She also relates weakness in the left leg and the foot distally in particular. She denies any upper extremity symptoms. She relates that she is in a lot of pain and needs pain medications since the current pain medications are not enough for controlling her pain. She complains of constipation and urinary incontinence. She has been using adult pads for the past several months. PAST MEDICAL HISTORY 1. 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 2. History of IV drug abuse with heroin and Dilaudid as well as crack cocaine use. 3. Bipolar disorder. 4. Asthma. 5. Hysterectomy. 6. x4. 7. Relates some neck surgery when she was 2-years-old. REVIEW OF SYSTEMS Denies any fevers or chills. Denies any double vision or blurred vision. Denies any neck pain or headaches. Does complain of thoracic back pain. Complains of pain in the lower extremities bilaterally. Complains of urinary incontinence for several months. Complains of weakness with foot drop, right more than left, for the past several months. Complains of constipation. Complains of numbness in the lower extremities bilaterally. Complains of redness and swelling in a left forearm injection site. No recent weight gain or weight loss. No abdominal pain, nausea or vomiting. No chest pain or shortness of breath. LABORATORY STUDIES White blood cell count 8.4, hemoglobin 11.9, platelet count 243. PT 10.8, INR 1.0, PTT 29. Sodium 140, potassium 4.3, BUN 8, creatinine 0.53, glucose 88. Toxicology screen is positive for cocaine and opiates. Urinalysis with rare bacteria, moderate leukocyte esterase, 3 urinary blood cells, 8 squamous epithelial cells. PHYSICAL EXAMINATION VITAL SIGNS: Temperature 96.5, pulse 70, respiratory rate 16, blood pressure 105/52. Oxygen saturation 98% on room air. HEAD: Normocephalic, atraumatic. NECK: Supple. CHEST: Clear to auscultation bilaterally. HEART: Regular rate rhythm. ABDOMEN: Soft, nontender. EXTREMITIES: No cyanosis or edema. NEUROLOGIC: She is awake and alert. Cranial nerves are intact. Motor strength in the upper extremities is 5/5. The lower extremity right iliopsoas is 4-, quadriceps is 4-, dorsiflexion and plantar flexion 0/5. She can barely wiggle her toes. Left side more proximally iliopsoas and quadriceps is 4-, dorsiflexion 2/5, plantar flexion 2/5. Complains of decreased sensation, right more than left, in the lower extremities, total waist. She has adult diaper pads in place. There is positive Babinski and positive three-beat clonus. Negative Allen's. Speech is fluent. IMPRESSION Thoracolumbar dorsal multicystic, likely intradural, abnormality with cord compression and likely intrinsic spinal cord myelomalacia or ischemic change. There is no significant enhancement. It seems atypical and unlikely for an infectious etiology. On the MRI scan from last evening there is some slight growth in the cystic abnormality compared to the MRI scan two months ago. PLAN I recommended a T10-L1 laminectomy with resection of this spinal mass, possibly intradural. The risks and benefits involved have been discussed. Given that she has had chronic profound weakness especially distally in the legs right more than left as well as urinary incontinence, it is likely that this will not reverse even with surgical decompression and intervention. The goal is obviously to reduce the risk of further progression and ultimately complete paralysis. Initially she was somewhat reluctant but after several discussions she has requested that we proceed with the surgery and an informed consent was obtained. Obviously given her destructive behavior with polysubstance abuse as well as IV drug abuse and chronic pain issues, her care will be challenging along with compliance issues. She was counseled on this aspect. MD CRICKET Eddy/DENNISE /11:28 AM /12:18 PM
[2017-01-28] MEDS ORDERED: ceFAZolin INJ 1,000 MG VIAL ONE (13:03)
--- NOTE | 2017-01-28 14:00 | PD.PSY.CON ---
Provisional Diagnosis Admission Date Jan 27, 2017 at 17:08 History of Present Illness Service Psychiatry Consult Requested By Reason for Consult Bipolar disorder Primary Care Physician No Primary Care Physician Past Family Social History Coded Allergies: codeine (Unverified Allergy, Mild, Itching, 01/27/17) milk (Unverified Adverse Reaction, Mild, Diarrhea, 01/27/17) No Active Prescriptions or Reported Meds Current Medications Medications (Trade) Dose Ordered Sig/Fredi Route Start Time Stop Time Status Last Admin Sodium Chloride 1,000 ml @ 100 mls/hr Q10H IV 01/27/17 17:05 01/28/17 06:02 (NS Flush) 2 ml UNSCH PRN IV FLUSH 01/27/17 17:15 (NS Flush) 2 ml BID IV FLUSH 01/27/17 21:00 (Tylenol) 650 mg Q4H PRN PO 01/27/17 17:15 (Zofran Inj) 4 mg Q6H PRN IVP 01/27/17 17:15 (Narcan Inj) 0.4 mg UNSCH PRN IV 01/27/17 17:15 (Demetra-Colace) 1 tab BID PO 01/27/17 21:00 (Milk Of Magnesia Liq) 30 ml Q12H PRN PO 01/27/17 17:15 (Senokot) 17.2 mg Q12H PRN PO 01/27/17 17:15 (Dulcolax Supp) 10 mg DAILY PRN RECTAL 01/27/17 17:15 (Lactulose Liq) 30 ml DAILY PRN PO 01/27/17 17:15 Pharmacy Profile Note 0 ml @ 0 mls/hr UNSCH OTHER 01/27/17 17:15 Cefepime HCl 2000 mg/Sodium Chloride 100 ml @ 200 mls/hr Q8H IV 01/27/17 18:00 01/28/17 11:22 ([place] 7.5-325 Mg) 1 tab Q4H PRN PO 01/27/17 18:00 01/28/17 10:33 (Habitrol 21 Mg Patch.24 Hr) 1 patch DAILY T-DERMAL 01/27/17 18:00 01/28/17 10:27 Miscellaneous Information 1 DAILY T-DERMAL 01/28/17 09:00 01/28/17 09:00 Vancomycin HCl 1000 mg/Sodium Chloride 250 ml @ 250 mls/hr Q12H IV 01/28/17 06:00 01/28/17 06:00 Miscellaneous Information SPECIFIC LAB TO BE BAN... ONCE ONCE .XX 01/29/17 05:45 01/29/17 05:46 Physical Exam Vital Signs Vital Signs Date Time Temp Pulse Resp B/P (MAP) Pulse Ox O2 Delivery O2 Flow Rate FiO2 01/28/17 08:00 96.5 70 16 105/52 (69) 98 01/27/17 20:18 Room Air 01/27/17 17:29 21 I/O 01/28/17 01/28/17 01/29/17 08:00 16:00 00:00 Intake Total 0 ml Balance 0 ml Assessment & Plan Problem List: (1) Bipolar disorder ICD Codes: F31.9 - Bipolar disorder, unspecified Assessment & Plan: Patient was visited by psychiatry for evaluation, but she was out for surgery. Will come in a later time. Assessment & Plan Estimated LOS: Manuel Jones MD Jan 28, 2017 14:00
[2017-01-28] MEDS ORDERED: ACETAMINOPHEN/HYDROcodone 325 MG/10 MG TAB PO PRN (15:15)
[2017-01-28] MEDS ORDERED: MAGNESIUM HYDROXIDE SUSP 30 ML CUP PO PRN (15:15)
[2017-01-28] MEDS ORDERED: METOCLOPRAMIDE HCL 10 MG/2 ML VIAL IVS PRN (15:15)
[2017-01-28] MEDS ORDERED: CYCLOBENZAPRINE HCL 10 MG TAB PO PRN (15:15)
[2017-01-28] MEDS ORDERED: ALUMINUM/MAGNESIUM/SIMETH 30 ML CUP PO PRN (15:15)
[2017-01-28] MEDS ORDERED: ZOLPIDEM TARTRATE 5 MG TAB PO PRN (15:15)
[2017-01-28] MEDS ORDERED: cloNIDine HCL 0.1 MG TAB PO PRN (15:15)
[2017-01-28] MEDS: LACTULOSE SYRUP 20 GM/30 ML CUP PO SCH (15:15)
[2017-01-28] MEDS ORDERED: MENTHOL LOZENGE BUCCAL PRN (15:15)
[2017-01-28] MEDS ORDERED: RESP: ALBUTEROL 2.5 MG/3 ML NEB (PRN) NEB (15:15)
--- NOTE | 2017-01-28 15:17 | PD.OP ---
Operative Report Date of Surgery: Jan 28, 2017 Preoperative Diagnosis: Thoracolumbar multiloculated epidural cyst with severe stenosis and cord compression; chronic back pain with paraparesis and incontinence Postoperative Diagnosis: Same Procedure: T10, T11, T12 and L1 laminectomy with resection of epidural cyst; microsurgical technique Anesthesia: Gen. endotracheal by Lalita Howell Surgeon: Ajay Whitt M.D. Human Resources Hr Representative(s): Madison Forrester Operation and Findings: The procedure along with the risks and benefits involved were discussed with the patient including the option of nonsurgical management. She requested that we proceed with surgery and informed consent was obtained. Following initiation of a general endotracheal anesthesia patient a Ramos catheter placed on the sequential compression devices and was log rolled on a Jose Carlos table on chest rolls in the prone position and all pressure points adequately padded. Ancef 1 g was administered intravenously. The posterior thoracic lumbar was then shaved and prepped with alcohol along with ChloraPrep and sterilely draped with Ioban along with the usual sterile draping. Intraoperative fluoroscopy was used for level confirmation an incision in the midline made extending from that T10 to the L1 levels after infiltrating the skin with 0.5% Marcaine with epinephrine solution. The incision was extended down through the fascia and then using the subperiosteal plane the muscle attachments spinous processes and lamina along with the facets were detached from the T10-L1 levels bilaterally. Further dissection was undertaken using microtechnique with microscope magnification. The T10-L1 lamina were resected with a drill bit and Kerrison along with the underlying ligamentum flavum. A large multiloculated dorsal cyst was noted significantly compressing on the underlying dura and the spinal cord. The cyst wall was fenestrated and CSF consistency fluid expressed to decompress this cyst which was under pressure. Epidural venous stasis achieved with bipolar cautery along with Gelfoam and thrombin. The cyst had 2 components one larger superior and another smaller inferior component and both were removed and was very adherent to the to the underlying dura and also at the inferior portion of the L1 level there was a fistula connecting to the intradural CSF space which was also ligated. After resection of this cyst and dehiscence of the dura the small dural opening was repaired primarily with the 5 -0 Prolene running lock stitch in a watertight fashion. The spinal canal was well decompressed along with the thecal sac at this point. The area was copiously irrigated with vancomycin solution. AP and lateral fluoroscopy confirmed good placement of the construct as well as voodoo of the spinal alignment. The muscle and fascia was then approximated using 2-0 Vicryl interrupted stitches and 3-0 Vicryl subcuticular interrupted stitches were also placed with final skin closure using faina. Sterile dressings were then applied and he was then log roll supine position and extubated and taken recovery room. There were no intraoperative complications and all sponge and needle count was correct at the end the procedure. Estimated blood loss about 200cc. Intraoperative neurologic monitoring was also undertaken which remained stable throughout the surgery. Ajay Whitt MD Jan 28, 2017 15:17
[2017-01-28] MEDS ORDERED: DO NOT ADM ANY ANTICOAGULANT DRUGS PRN (15:30)
--- NOTE | 2017-01-28 15:55 | RADRPT ---
EXAM DATE/TIME: 01/28/2017 12:53 COMPARISON: No previous studies available for comparison. INDICATIONS : Thoracolumbar T10-L1 laminectomy and removal of interdural mass. OR. MEDICAL HISTORY : IVDA. SURGICAL HISTORY : section. ENCOUNTER: Initial ACUITY: 1 day PAIN SCORE: Non-responsive. LOCATION: Spine T11-L1 CONCLUSION: Fluoroscopic image demonstrates temporary probe at the thoracolumbar junction. Luis Cruz MD on January 28, 2017 at 15:52 Board Certified Radiologist. This report was verified electronically.
[2017-01-28] MEDS: DEXAMETHASONE SOD PHOS 4 MG/ML VIAL IV SCH ×2 (16:00→21:33)
[2017-01-28] MEDS ORDERED: *ONDANSETRON 4 MG VIAL PERIprocedural Use ONLY ONE (16:45)
[2017-01-28] MEDS: MORPHINE SULFATE 4 MG/ML INJ IV PRN ×2 (17:24→21:34)
[2017-01-28] MEDS: ACETAMINOPHEN/HYDROcodone 325 MG/10 MG TAB PO PRN (19:00)
[2017-01-28 20:00] VITALS: BP 121/65; PULSE 87; RESP 18; TEMP 97.9; O2SAT 97
[2017-01-28] MEDS: DOCUSATE SODIUM 100 MG CAP PO SCH (21:33)
[2017-01-29] VITALS: BP 124/68; PULSE 84; RESP 18; TEMP 97.6; O2SAT 97
[2017-01-29] MEDS: ACETAMINOPHEN/HYDROcodone 325 MG/10 MG TAB PO PRN ×3 (02:10→12:48)
[2017-01-29] MEDS: MORPHINE SULFATE 4 MG/ML INJ IV PRN ×4 (02:10→20:13)
[2017-01-29] MEDS: CEFEPIME INJ 2,000 MG in SODIUM CHLORIDE 0.9% INJ 100 ML IV SCH ×3 (02:34→18:00)
[2017-01-29 04:00] VITALS: BP 96/51; PULSE 77; RESP 18; TEMP 98.4; O2SAT 97
[2017-01-29] MEDS: DEXAMETHASONE SOD PHOS 4 MG/ML VIAL IV SCH ×2 (04:00→14:34)
[2017-01-29] MEDS ORDERED: PHARMACY ORDERED LAB ONE ×2 (05:45→17:45)
[2017-01-29 08:04] VITALS: O2SAT 97
[2017-01-29 08:34] VITALS: BP 107/64; PULSE 79; RESP 18; TEMP 98.4; O2SAT 98
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
[2017-01-29] MEDS: LACTULOSE SYRUP 20 GM/30 ML CUP PO SCH (09:00)
[2017-01-29] MEDS: SODIUM CHLORIDE 0.9% FLUSH 10 ML FLUSH IV FLUSH SCH ×2 (09:00→21:00)
[2017-01-29] MEDS: REMOVE OLD PATCH T-DERMAL SCH (09:00)
[2017-01-29] MEDS: DOCUSATE SODIUM 100 MG CAP PO SCH (09:00)
[2017-01-29] MEDS: PANTOPRAZOLE SOD 40 MG DELAYED RELEASE TAB PO SCH (09:00)
[2017-01-29] MEDS: VANCOMYCIN 1,000 MG/NS 250 ML IV SCH ×4 (09:02→18:00)
[2017-01-29] MEDS: NICOTINE 21 MG/24 HR PATCH T-DERMAL SCH (09:13)
[2017-01-29 12:27] VITALS: BP 132/71; PULSE 83; RESP 18; TEMP 98; O2SAT 98
--- NOTE | 2017-01-29 12:57 | HHI.PR ---
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 Complains of severe back pain. Currently afebrile. Mother by the bedside Objective Vitals Vital Signs Date Time Temp Pulse Resp B/P (MAP) Pulse Ox O2 Delivery O2 Flow Rate FiO2 01/29/17 12:27 98.0 83 18 132/71 (91) 98 01/29/17 08:34 98.4 79 18 107/64 (78) 98 01/29/17 08:04 97 01/29/17 04:00 98.4 77 18 96/51 (66) 97 01/29/17 00:00 97.6 84 18 124/68 (86) 97 01/28/17 20:00 97.9 87 18 121/65 (83) 97 01/28/17 18:00 80 16 116/69 (85) 99 Room Air 01/28/17 17:29 16 01/28/17 17:00 70 18 114/67 (83) 99 Room Air 01/28/17 16:45 80 16 118/74 (89) 99 Room Air 01/28/17 16:30 94 16 121/73 (89) 99 Room Air 01/28/17 16:15 85 16 121/72 (88) 98 Room Air 01/28/17 16:00 76 17 109/61 (77) 98 Room Air 01/28/17 15:45 87 16 114/72 (86) 100 Room Air 01/28/17 15:30 75 16 111/59 (76) 100 Nasal Cannula 2 01/28/17 15:15 74 18 110/59 (76) 100 Nasal Cannula 2 01/28/17 15:10 97.4 87 16 108/58 (75) 98 Nasal Cannula 2 I/O 01/28/17 01/28/17 01/28/17 01/29/17 01/29/17 01/29/17 07:00 15:00 23:00 07:00 15:00 23:00 Intake Total 0 ml 1400 ml 526 ml Output Total 700 ml 250 ml 1100 ml Balance 0 ml 700 ml 276 ml -1100 ml Intake Oral 0 ml IV Total 1400 ml 526 ml Output Urine Total 1100 ml Other 700 ml 250 ml # Voids 2 # Bowel Movements 0 Result Diagram: 01/28/17 0757 01/28/17 0758 Imaging Last Impressions Upper Extremity Ultrasound 01/27/17 0000 Signed Impressions: Service Date/Time: Friday, January 27, 2017 18:02 - CONCLUSION: No evidence for thrombus down to the level of the cephalic vein and cephalic vein is not evaluated since the patient refused any further imaging at that point. El Jennings MD Thoracic Spine MRI 01/27/17 0000 Signed Impressions: Service Date/Time: Friday, January 27, 2017 15:28 - CONCLUSION: Enlarging epidural fluid collection epicentered at the T11-12 with moderate to severe cord compression at mid level T11 vertebral body and worse since the prior exam. There is no abnormal enhancement of this process and possibility of CSF leak into the epidural space should be entertained. The appearance is also very unlikely to represent an epidural hematoma or abscess. El Jennings MD ADDENDUM: Findings were discussed with Dr. Moreira on 01/27/2017 at the time of this dictation. El Jennings MD Lumbar Spine MRI 01/27/17 0000 Signed Impressions: Service Date/Time: Friday, January 27, 2017 15:28 - CONCLUSION: Essentially unremarkable lumbar spine study and please refer to thoracic spine MRI for the description of the findings epicentered at T11-12 in the epidural space posteriorly. El Jennings MD Objective Remarks GENERAL: NAD SKIN: Warm and dry. HEAD: Normocephalic. EYES: No scleral icterus. No injection or drainage. NECK: Supple, trachea midline. No JVD or lymphadenopathy. CARDIOVASCULAR: Regular rate and rhythm without murmurs, gallops, or rubs. RESPIRATORY: Breath sounds equal bilaterally. No accessory muscle use. GASTROINTESTINAL: Abdomen soft, non-tender, nondistended. MUSCULOSKELETAL: No cyanosis, or edema. BACK: tender without obvious deformity. No CVA tenderness. dressing in place Procedures T10, T11, T12 and L1 laminectomy with resection of epidural cyst; microsurgical technique 01/28/17 A/P Assessment and Plan 26-year-old female with 1. 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 T10, T11, T12 and L1 laminectomy with resection of epidural cyst; microsurgical technique 01/28/17 Management per neurosurgery and consult PT Adjust pain medication accordingly Continue with Decadron, IV antibiotics pending culture 2. Left arm cellulitis Wound care nurse consult Continue with current antibiotics 3. Continuous IV Drug Check 2-D echo 4. Tobacco dependence/Alcohol abuse Strongly recommended to stop smoking and drinking alcohol CIWA protocol and Nicotine path 5. Hypokalemia: Resolved 6. Abnormal UA 7. Anxiety Appreciate input from psychiatry Currently on Klonopin 0.5 mg twice a day, Seroquel 100 mg at bedtime DVT prophylaxis with Luis Galan MD Jan 29, 2017 12:57
[2017-01-29] MEDS: clonazePAM 0.5 MG TAB PO SCH ×2 (14:07→20:13)
[2017-01-29] MEDS: ONDANSETRON HCL 4 MG/2 ML VIAL IVP PRN (14:34)
[2017-01-29] MEDS: SODIUM CHLOR 0.9% 1000 ML INJ 1,000 ML IV SCH (15:09)
[2017-01-29 16:00] VITALS: BP 119/71; PULSE 84; RESP 18; TEMP 98.4; O2SAT 97
--- NOTE | 2017-01-29 17:20 | PD.WCN.NOT ---
Wound Consult Description: Consult for Wound Management of left arm per Dr Magallon Communicated with: Patient refused assessment of wound Dr Magallon notified of patients refusal ANGEL Aragon notified of patients refusal and attempt planned for another visit tomorrow Recommendation: Hui THERMOCOUPLE TESTER when patient is compliant with wound care assessment of left arm. Additional Information: Patient was seen on [address] in her room, however patient was emotional, breathing as if she was going to cry, and said "No, go away, no, go" with another attempt to introduce myself patient ignored all attempts to assess her wound. Dr Magallon was notified of patient refusing to be seen by sea captain. Christel Abreu [facility] Jan 29, 2017 17:20
--- NOTE | 2017-01-29 17:39 | ECHRPT ---
Indication: SEPSIS POSS. ENDOCARDITIS CONCLUSIONS Normal left ventricular size and wall thickness. The left ventricular systolic function is normal wi th an estimated ejection fraction in the range of 60-65%. Left ventricular diastolic function parameters a re normal. Trace mitral valve regurgitation. There is trace tricuspid valve regurgitation. The estimated pulmonary arterial pressure is 35 mmHg. Trivial pulmonary valve regurgitation. The inferior vena cava was not well visualized. No definitive endocarditis appreciated. BP: 132 / 71 HR: 91 Rhythm: Sinus MEASUREMENTS (Male / Female) Normal Values Technical Quality:Excellent 2D ECHO LV Diastolic Diameter PLAX 4.3 cm 4.2 - 5.9 / 3.9 - 5.3 cm LV Systolic Diameter PLAX 2.6 cm IVS Diastolic Thickness 0.7 cm 0.6 - 1.0 / 0.6 - 0.9 cm LVPW Diastolic Thickness 0.8 cm 0.6 - 1.0 / 0.6 - 0.9 cm LV Relative Wall Thickness 0.3 RV Internal Dim ED PLAX 2.6 cm LVOT Diameter 2.0 cm LA Systolic Diameter LX 3.0 cm 3.0 - 4.0 / 2.7 - 3.8 cm LV Ejection Fraction MOD 4C 65.2 % LV Cardiac Index MOD 4C 2498.9 cm/minm LV Ejection Fraction 4C AL 67.7 % LV Cardiac Index 4C AL 2680.7 cm/minm M-MODE Aortic Root Diameter MM 2.4 cm AV Cusp Separation MM 1.8 cm DOPPLER AV Peak Velocity 140.0 cm/s AV Peak Gradient 7.8 mmHg LVOT Peak Velocity 107.0 cm/s LVOT Peak Gradient 4.6 mmHg AV Area Cont Eq pk 2.4 cm MV Area PHT 3.5 cm Mitral E Point Velocity 89.8 cm/s Mitral A Point Velocity 74.5 cm/s Mitral E to A Ratio 1.2 LV E' Lateral Velocity 10.2 cm/s Mitral E to LV E' Lateral Ratio 8.8 LV E' Septal Velocity 9.3 cm/s Mitral E to LV E' Septal Ratio 9.7 TR Peak Velocity 262.0 cm/s TR Peak Gradient 27.5 mmHg PV Peak Velocity 110.0 cm/s PV Peak Gradient 4.8 mmHg FINDINGS LEFT VENTRICLE Normal left ventricular size and wall thickness. The left ventricular systolic function is normal wi th an estimated ejection fraction in the range of 60-65%. Left ventricular diastolic function parameters a re normal. RIGHT VENTRICLE Normal right ventricular size and systolic function. LEFT ATRIUM The left atrial size is normal. RIGHT ATRIUM The right atrial size is normal. ATRIAL SEPTUM Normal atrial septal thickness without atrial level shunting by limited color doppler interrogation. AORTA The aortic root and proximal ascending aorta are normal in size on limited imaging. MITRAL VALVE Trace mitral valve regurgimild thickening of the mitral valve leaflets. tation. AORTIC VALVE Trileaflet aortic valve. No aortic valve stenosis or regurgitation. TRICUSPID VALVE There is trace tricuspid valve regurgitation. The estimated pulmonary arterial pressure is 35 mmHg. PULMONARY VALVE Trivial pulmonary valve regurgitation. VESSELS The inferior vena cava was not well visualized. PERICARDIUM No pericardial effusion. Mayda Saucedo MD, FACC (Electronically Signed) Final Date:29 January 2017 17:38
[2017-01-29] MEDS: QUEtiapine FUMARATE 100 MG TAB PO SCH (20:13)
[2017-01-29] MEDS: HYDROmorphone HCL 2 MG TAB PO PRN (20:13)
[2017-01-30] MEDS: CEFEPIME INJ 2,000 MG in SODIUM CHLORIDE 0.9% INJ 100 ML IV SCH (02:00)
[2017-01-30 03:30] VITALS: BP 119/72; PULSE 80; RESP 16; TEMP 98.3
[2017-01-30] MEDS: MORPHINE SULFATE 4 MG/ML INJ IV PRN ×4 (03:35→20:49)
[2017-01-30] MEDS: ONDANSETRON HCL 4 MG/2 ML VIAL IVP PRN ×2 (03:38→06:15)
[2017-01-30] MEDS ORDERED: PHARMACY ORDERED LAB ONE (05:45)
[2017-01-30] MEDS: clonazePAM 0.5 MG TAB PO SCH ×3 (06:00→23:36)
[2017-01-30] MEDS: VANCOMYCIN 1,000 MG/NS 250 ML IV SCH ×2 (06:00)
[2017-01-30 08:05] VITALS: BP 121/69; PULSE 79; RESP 16; TEMP 97.5; O2SAT 95
[2017-01-30] MEDS: DOCUSATE SODIUM 50 MG/SENNA 8.6 MG TAB PO PRN (08:48)
[2017-01-30] MEDS: HYDROmorphone HCL 2 MG TAB PO PRN ×2 (08:49→23:45)
[2017-01-30] MEDS: PANTOPRAZOLE SOD 40 MG DELAYED RELEASE TAB PO SCH (08:49)
[2017-01-30] MEDS: REMOVE OLD PATCH T-DERMAL SCH (08:49)
[2017-01-30] MEDS: BISACODYL 10 MG SUPP RECTAL SCH (08:50)
[2017-01-30] MEDS: SODIUM CHLORIDE 0.9% FLUSH 10 ML FLUSH IV FLUSH SCH ×2 (08:50→20:49)
[2017-01-30] MEDS: NICOTINE 21 MG/24 HR PATCH T-DERMAL SCH (08:58)
--- NOTE | 2017-01-30 09:30 | HHI.NSPN ---
History Chief Complaint: Nauea and vomiting. Interval History 01/30/17: Pt having significant nausea and vomiting this am. RN states she is refusing a lot of medications and bandage changes. Pt very tearful with active vomiting when I saw her this morning. Review of Systems General: Negative for: fever, chills, insomnia Respiratory: Negative for: shortness of breath, cough, sputum Cardiovascular: Negative for: chest pain Gastrointestinal: Positive for: nausea, vomitting, Negative for: diarrhea, constipation Exam Results Vital Signs Date Time Temp Pulse Resp B/P (MAP) Pulse Ox O2 Delivery O2 Flow Rate FiO2 01/30/17 08:05 97.5 79 16 121/69 (86) 95 01/28/17 18:00 Room Air 01/28/17 15:30 2 01/27/17 17:29 21 Physical Examination Pt not cooperating for exam. She is activity vomiting into bucket. Discussed with RN will order Phenergan IM in addition to her Zofran. Medical Decision Making Impression and Plan A: 26 y/o FM s/p T10, T11, T12 and L1 laminectomy with resection of epidural cyst; microsurgical technique P: Continue to monitor. Continue with current care Phenergan for n/v. D/w RN hopefully pt will be more cooperative once we get her n/v controlled. Luis Valle Jan 30, 2017 09:30
--- NOTE | 2017-01-30 09:34 | HHI.NSPN ---
(Luis Valle) History Chief Complaint: Incisional pain. (Luis Valle) Interval History 01/29/17: Delayed note entry. Pt seen and examined on 01/29 but note didn't save. Pt complains of incision pain radiating into the right leg in particular this morning. 01/30/17: Pt having significant nausea and vomiting this am. RN states she is refusing a lot of medications and bandage changes. Pt very tearful with active vomiting when I saw her this morning. (Luis Valle) Review of Systems General: Negative for: fever, chills, insomnia Respiratory: Negative for: shortness of breath, cough, sputum Cardiovascular: Negative for: chest pain Gastrointestinal: Negative for: nausea, vomitting, diarrhea, constipation ( Luis Valle) Exam Results Vital Signs Date Time Temp Pulse Resp B/P (MAP) Pulse Ox O2 Delivery O2 Flow Rate FiO2 01/30/17 08:05 97.5 79 16 121/69 (86) 95 01/28/17 18:00 Room Air 01/28/17 15:30 2 01/27/17 17:29 21 (Luis Valle) Physical Examination Resp: CTA bilaterally Heart: NSR no murmurs Abd: Soft positive bs Skin: No cyanosis or erythema. Muscle: Right foot drop. The lower extremity right iliopsoas is 4-, quadriceps is 4-, dorsiflexion and plantar flexion 0/5. She can barely wiggle her toes. Left side more proximally iliopsoas and quadriceps is 4-, dorsiflexion 2/5, plantar flexion 2/5. Neuro: Pt awake and alert. Follows commands well. Speech clear and appropriate. (Luis Valle) Medical Decision Making Impression and Plan A: 26 y/o FM s/p T10, T11, T12 and L1 laminectomy with resection of epidural cyst; microsurgical technique. POD #1. P: Continue to monitor. Continue with current care Continue with PT. (Luis Valle) Attending Statement The exam, history, and the medical decision-making described in the above note were completed with the assistance of the mid-level provider. I reviewed and agree with the findings presented. I attest that I had a [id number] encounter with the patient on the same day, and personally performed and documented my assessment and findings in the medical record. Ambulating in hallway with physical therapist and relates that her strength in her legs has improved postoperatively and is very happy. She wants Ramos to be removed. SCDs for DVT prophylaxis and will start chemical prophylaxis tomorrow. Continue with the pain control and rehabilitation. (Ajay Whitt MD) Luis Valle Jan 30, 2017 09:34 Ajay Whitt MD Jan 30, 2017 11:14
[2017-01-30] MEDS: PROMETHAZINE INJ 25 MG/ML VIAL IM PRN ×3 (09:37→23:37)
[2017-01-30 10:36] LABS: BASOPHIL % 0.3 % (0.0-2.0); EOSINOPHIL % 0.2 % (0.0-4.0); HEMO FLAGS DIFF FINAL; LYMPH % 14.2 % (9.0-44.0); LYMPHOCYTE # 1.8 TH/MM3 (1.0-4.8); MEAN CELL VOLUME 91.5 FL (80.0-100.0); MEAN CORPUSCULAR HEMOGLOBIN 30.4 PG (27.0-34.0); MEAN CORPUSCULAR HGB CONC 33.3 % (32.0-36.0); MONO % 7.1 % (0.0-8.0); NEUT % 78.2 % (16.0-70.0); PLATELET COUNT 273 TH/MM3 (150-450); RED BLOOD COUNT 4.04 MIL/MM3 (4.00-5.30); RED CELL DISTRIBUTION WIDTH 14.2 % (11.6-17.2); WHITE BLOOD COUNT 12.7 TH/MM3 (4.0-11.0)
--- NOTE | 2017-01-30 11:09 | HHI.PR ---
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 Complains of severe back pain. Currently afebrile. Mother by the bedside 01/30/17-patient seen and examined, she had episode of nausea overnight as well as this morning otherwise stable now. Patient was up and ambulated with heparin with PTT. Reports improvement of back pain. she Has less of a foot drop now Objective Vitals Vital Signs Date Time Temp Pulse Resp B/P (MAP) Pulse Ox O2 Delivery O2 Flow Rate FiO2 01/30/17 08:05 97.5 79 16 121/69 (86) 95 01/30/17 03:30 98.3 80 16 119/72 (88) 01/29/17 16:00 98.4 84 18 119/71 (87) 97 01/29/17 12:27 98.0 83 18 132/71 (91) 98 I/O 01/29/17 01/29/17 01/29/17 01/30/17 01/30/17 01/30/17 06:59 14:59 22:59 06:59 14:59 22:59 Intake Total 360 ml 2558 ml Output Total 1100 ml Balance -1100 ml 360 ml 2558 ml Intake Oral 360 ml IV Total 2558 ml Output Urine Total 1100 ml Result Diagram: 01/30/17 0933 01/28/17 0758 Objective Remarks GENERAL: NAD SKIN: Warm and dry. HEAD: Normocephalic. EYES: No scleral icterus. No injection or drainage. NECK: Supple, trachea midline. No JVD or lymphadenopathy. CARDIOVASCULAR: Regular rate and rhythm without murmurs, gallops, or rubs. RESPIRATORY: Breath sounds equal bilaterally. No accessory muscle use. GASTROINTESTINAL: Abdomen soft, non-tender, nondistended. MUSCULOSKELETAL: No cyanosis, or edema. BACK: tender without obvious deformity. No CVA tenderness. dressing in place Procedures T10, T11, T12 and L1 laminectomy with resection of epidural cyst; microsurgical technique 01/28/17 A/P Assessment and Plan 26-year-old female with 1. 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 T10, T11, T12 and L1 laminectomy with resection of epidural cyst; microsurgical technique 01/28/17 Management per neurosurgery and consult PT Adjust pain medication accordingly Continue with Decadron, and discontinue IV antibiotics as culture negative 2. Left arm cellulitis Wound care nurse consult however patient did refuse examinations yesterday Start by mouth Bactrim 3. Continuous IV Drug 2-D echo without any vegetation 4. Tobacco dependence/Alcohol abuse Strongly recommended to stop smoking and drinking alcohol CIWA protocol and Nicotine path 5. Hypokalemia: Resolved 6. Abnormal UA 7. Anxiety Appreciate input from psychiatry Currently on Klonopin 0.5 mg twice a day, Seroquel 100 mg at bedtime DVT prophylaxis with Luis Galan MD Jan 30, 2017 11:09
[2017-01-30 11:18] LABS: MAGNESIUM 2.3 MG/DL (1.5-2.5); POTASSIUM 3.4 MEQ/L (3.5-5.1)
[2017-01-30 12:16] VITALS: BP 113/70; PULSE 83; RESP 16; TEMP 98.2; O2SAT 96
[2017-01-30 17:08] VITALS: BP 119/77; PULSE 78; RESP 16; TEMP 98.1; O2SAT 96
[2017-01-30 20:00] VITALS: BP 122/74; PULSE 81; RESP 16; TEMP 98.5; O2SAT 94
[2017-01-30] MEDS: SULFAMETHOXAZOLE-TRIMETHOPRIM DS 800-160 MG TAB PO SCH (20:49)
[2017-01-30] MEDS: QUEtiapine FUMARATE 100 MG TAB PO SCH (20:49)
[2017-01-31] VITALS: BP 95/54; PULSE 96; RESP 16; TEMP 98.6; O2SAT 94
[2017-01-31 04:00] VITALS: BP 92/59; PULSE 84; RESP 16; TEMP 98.4; O2SAT 96
[2017-01-31] MEDS: clonazePAM 0.5 MG TAB PO SCH ×3 (06:30→20:24)
[2017-01-31] MEDS: DOCUSATE SODIUM 50 MG/SENNA 8.6 MG TAB PO PRN (06:30)
[2017-01-31] MEDS: MORPHINE SULFATE 4 MG/ML INJ IV PRN ×4 (06:31→20:23)
[2017-01-31 08:36] VITALS: BP 97/59; PULSE 79; RESP 18; TEMP 97.9; O2SAT 95
[2017-01-31] MEDS: PROMETHAZINE INJ 25 MG/ML VIAL IM PRN ×3 (08:49→20:23)
[2017-01-31] MEDS: SULFAMETHOXAZOLE-TRIMETHOPRIM DS 800-160 MG TAB PO SCH ×2 (08:50→20:24)
[2017-01-31] MEDS: HYDROmorphone HCL 2 MG TAB PO PRN ×2 (08:50→15:28)
[2017-01-31] MEDS: PANTOPRAZOLE SOD 40 MG DELAYED RELEASE TAB PO SCH (08:50)
[2017-01-31] MEDS: ENOXAPARIN SODIUM 40 MG/0.4 ML SYRINGE SQ SCH (08:51)
[2017-01-31] MEDS: REMOVE OLD PATCH T-DERMAL SCH (08:54)
[2017-01-31] MEDS: NICOTINE 21 MG/24 HR PATCH T-DERMAL SCH (08:55)
[2017-01-31] MEDS: SODIUM CHLORIDE 0.9% FLUSH 10 ML FLUSH IV FLUSH SCH (08:55)
[2017-01-31] MEDS: BISACODYL 10 MG SUPP RECTAL SCH (08:57)
--- NOTE | 2017-01-31 10:20 | HHI.NSPN ---
History Chief Complaint: Incisional pain. Interval History 01/29/17: Delayed note entry. Pt seen and examined on 01/29 but note didn't save. Pt complains of incision pain radiating into the right leg in particular this morning. 01/30/17: Pt having significant nausea and vomiting this am. RN states she is refusing a lot of medications and bandage changes. Pt very tearful with active vomiting when I saw her this morning. 01/31/17: Pts nausea much better with Phenergan. Pt much more cooperative for exam. Complains of incisional pain. No radiculopathy or paresthesias in LEs. She states mood better also with Klonopin. Review of Systems General: Negative for: fever, chills, insomnia Respiratory: Negative for: shortness of breath, cough, sputum Cardiovascular: Negative for: chest pain Gastrointestinal: Negative for: nausea, vomitting, diarrhea, constipation Exam Results Vital Signs Date Time Temp Pulse Resp B/P (MAP) Pulse Ox O2 Delivery O2 Flow Rate FiO2 01/31/17 08:36 97.9 79 18 97/59 (72) 95 01/28/17 18:00 Room Air 01/28/17 15:30 2 01/27/17 17:29 21 Intake and Output 01/31/17 01/31/17 02/01/17 08:00 16:00 00:00 Output Total 200 ml Balance -200 ml Physical Examination Resp: CTA bilaterally Heart: NSR no murmurs Abd: Soft positive bs Skin: No cyanosis or erythema. No bandage placed by RN this morning Muscle: Right foot drop. The lower extremity right iliopsoas is 4-, quadriceps is 4-, dorsiflexion and plantar flexion 0/5. She can barely wiggle her toes. Left side more proximally iliopsoas and quadriceps is 4-, dorsiflexion 2/5, plantar flexion 2/5. Neuro: Pt awake and alert. Follows commands well. Speech clear and appropriate. Lab, Micro, Other Results Last Impressions Thoracic Spine X-Ray 01/28/17 0000 Signed Impressions: Service Date/Time: Saturday, January 28, 2017 12:53 - CONCLUSION: Fluoroscopic image demonstrates temporary probe at the thoracolumbar junction. Luis Cruz MD Upper Extremity Ultrasound 01/27/17 Signed Impressions: Service Date/Time: Friday, January 27, 2017 18:02 - CONCLUSION: No evidence for thrombus down to the level of the cephalic vein and cephalic vein is not evaluated since the patient refused any further imaging at that point. El Jennings MD Thoracic Spine MRI 01/27/17 Signed Impressions: Service Date/Time: Friday, January 27, 2017 15:28 - CONCLUSION: Enlarging epidural fluid collection epicentered at the T11-12 with moderate to severe cord compression at mid level T11 vertebral body and worse since the prior exam. There is no abnormal enhancement of this process and possibility of CSF leak into the epidural space should be entertained. The appearance is also very unlikely to represent an epidural hematoma or abscess. El Jennings MD ADDENDUM: Findings were discussed with Dr. Moreira on 01/27/2017 at the time of this dictation. El Jennings MD Lumbar Spine MRI 01/27/17 0000 Signed Impressions: Service Date/Time: Friday, January 27, 2017 15:28 - CONCLUSION: Essentially unremarkable lumbar spine study and please refer to thoracic spine MRI for the description of the findings epicentered at T11-12 in the epidural space posteriorly. El Jennings MD Medical Decision Making Impression and Plan A: 26 y/o FM s/p T10, T11, T12 and L1 laminectomy with resection of epidural cyst; microsurgical technique. POD #3. P: Continue to monitor incision. Continue with current care Continue with PT. Luis Valle Jan 31, 2017 10:20
--- NOTE | 2017-01-31 10:46 | PD.WCN.NOT ---
Wound Consult Description: Consult for Wound Management of left arm per Dr Magallon Communicated with: ANGEL Cronin [employer] MACHINE OPERATOR and Call placed to Doctor Magallon for orders Recommendation: Please cleanse wound to L arm with normal saline and pat dry. Pack wound with 1/ 4 inch iodoform packing and cover with dry cover dressing. Change dressing daily Additional Information: Patient seen on for evaluation of L arm wound management. Patient is s/ p incision and drainage of L arm abscess. I&D performed on 01/27. Removed bordered gauze dressing and packing in place to reveal wound. Wound presents as clean wound measuring 1cm x 0.2cm x 0.5 cm. Cleansed wound with normal saline. Tissue visible in wound bed is clean and red. Drainage from wound was minimal and sanguinous without odor. Old dressing noted with saturated dried sanguinous drainage. Periwound is unremarkable. Packed wound with 1/4 inch iodoform packing strip used ~2cm of packing strip in wound bed and left ~1cm of strip out of the wound bed. Covered wound with bordered gauze. Marilyn Maurer CRN Jan 31, 2017 10:45
[2017-01-31] MEDS ORDERED: GETGO ROLLING W1 MI1 (12:08)
--- NOTE | 2017-01-31 12:42 | HHI.PR ---
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 Complains of severe back pain. Currently afebrile. Mother by the bedside 01/30/17-patient seen and examined, she had episode of nausea overnight as well as this morning otherwise stable now. Patient was up and ambulated with heparin with PTT. Reports improvement of back pain. she Has less of a foot drop now 01/31/17-patient seen and examined, states she was up and ambulate 3 times daily. Complains of constipation. Objective Vitals Vital Signs Date Time Temp Pulse Resp B/P (MAP) Pulse Ox O2 Delivery O2 Flow Rate FiO2 01/31/17 08:36 97.9 79 18 97/59 (72) 95 01/31/17 04:00 98.4 84 16 92/59 (70) 96 01/31/17 00:00 98.6 96 16 95/54 (68) 94 01/30/17 20:00 98.5 81 16 122/74 (90) 94 01/30/17 17:08 98.1 78 16 119/77 (91) 96 I/O 01/30/17 01/30/17 01/30/17 01/31/17 01/31/17 01/31/17 07:00 15:00 23:00 07:00 15:00 23:00 Intake Total 360 ml Output Total 1025 ml 300 ml 200 ml Balance -1025 ml 60 ml -200 ml Intake Oral 360 ml Output Urine Total 1025 ml 300 ml 200 ml # Voids 2 Result Diagram: 01/30/17 0933 01/30/17 0933 Imaging Last Impressions Thoracic Spine X-Ray 01/28/17 0000 Signed Impressions: Service Date/Time: Saturday, January 28, 2017 12:53 - CONCLUSION: Fluoroscopic image demonstrates temporary probe at the thoracolumbar junction. Luis Cruz MD Upper Extremity Ultrasound 01/27/17 0000 Signed Impressions: Service Date/Time: Friday, January 27, 2017 18:02 - CONCLUSION: No evidence for thrombus down to the level of the cephalic vein and cephalic vein is not evaluated since the patient refused any further imaging at that point. El Jennings MD Thoracic Spine MRI 01/27/17 0000 Signed Impressions: Service Date/Time: Friday, January 27, 2017 15:28 - CONCLUSION: Enlarging epidural fluid collection epicentered at the T11-12 with moderate to severe cord compression at mid level T11 vertebral body and worse since the prior exam. There is no abnormal enhancement of this process and possibility of CSF leak into the epidural space should be entertained. The appearance is also very unlikely to represent an epidural hematoma or abscess. El Jennings MD ADDENDUM: Findings were discussed with Dr. Moreira on 01/27/2017 at the time of this dictation. El Jennings MD Lumbar Spine MRI 01/27/17 0000 Signed Impressions: Service Date/Time: Friday, January 27, 2017 15:28 - CONCLUSION: Essentially unremarkable lumbar spine study and please refer to thoracic spine MRI for the description of the findings epicentered at T11-12 in the epidural space posteriorly. El Jennings MD Objective Remarks GENERAL: NAD SKIN: Warm and dry. HEAD: Normocephalic. EYES: No scleral icterus. No injection or drainage. NECK: Supple, trachea midline. No JVD or lymphadenopathy. CARDIOVASCULAR: Regular rate and rhythm without murmurs, gallops, or rubs. RESPIRATORY: Breath sounds equal bilaterally. No accessory muscle use. GASTROINTESTINAL: Abdomen soft, non-tender, nondistended. MUSCULOSKELETAL: No cyanosis, or edema. BACK: tender without obvious deformity. No CVA tenderness. dressing in place Procedures T10, T11, T12 and L1 laminectomy with resection of epidural cyst; microsurgical technique 01/28/17 A/P Problem List: (1) Cord compression ICD Code: G95.20 - Unspecified cord compression Assessment and Plan 26-year-old female with 1. 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 T10, T11, T12 and L1 laminectomy with resection of epidural cyst; microsurgical technique 01/28/17 Management per neurosurgery and consult PT Continue current pain medication accordingly Discontinue Decadron 2. Left arm cellulitis Wound care nurse put appreciated and continue current recommendation Cleanse wound to L arm with normal saline and pat dry. Pack wound with 1/4 inch iodoform packing and cover with dry cover dressing. Change dressing daily Continue by mouth Bactrim 3. Continuous IV Drug 2-D echo without any vegetation 4. Tobacco dependence/Alcohol abuse Strongly recommended to stop smoking and drinking alcohol CIWA protocol and Nicotine path 5. Hypokalemia: Resolved 6. Abnormal UA 7. Anxiety Appreciate input from psychiatry Currently on Klonopin 0.5 mg twice a day, Seroquel 100 mg at bedtime DVT prophylaxis with SCDs Luis Magallon MD Jan 31, 2017 12:42
[2017-01-31 12:45] VITALS: BP 94/53; PULSE 92; RESP 17; TEMP 97.9; O2SAT 95
--- NOTE | 2017-01-31 12:50 | HHI.DS ---
Discharge Summary Admission Date Jan 27, 2017 at 17:08 Discharge Date: Feb 01, 2017 Admitting Diagnosis arachnoid cyst T11-12, abscess LEFT arm (1) Cord compression ICD Code: G95.20 - Unspecified cord compression Procedures T10, T11, T12 and L1 laminectomy with resection of epidural cyst; microsurgical technique 01/28/17 Brief History - From Admission This is a pleasant 26 y/o Female with history of Heroin Abuse and IDU, she was admitted to [facility] due to Spinal Mass with probable epidural abscess, she was started management but she signed against Medical Advice, then she came to ER again with pain 10/10 in intensity and associated Urinary Incontinence for one week, the case was discussed by ER specialist with Neurosurgery specialist, recommended Interventional Radiology to drain the Cyst and evaluate if is an infectious process versus, Cyst. was recommended to start management with Vancomycin and Cefepime, and probable drainage to follow, she was ruled out Hepatitis and also HIV on that opportunity , but she signed again AMA, today came to ER with left arm erythema and swelling, onset after injected Heroin into this area, also of Right leg pain from the thigh to the Right first toe. stable in her room in ER, evaluated in the presence at all times of her Fiance Mr. Antwon Galicia. CBC/BMP: 01/30/17 0933 01/30/17 0933 Significant Findings Laboratory Tests Test 01/30/17 09:33 White Blood Count 12.7 TH/MM3 (4.0-11.0) Neutrophils (%) (Auto) 78.2 % (16.0-70.0) Neutrophils # (Auto) 10.0 TH/MM3 (1.8-7.7) Creatinine 0.48 MG/DL (0.50-1.00) Calcium Level 8.4 MG/DL (8.5-10.1) Potassium Level 3.4 MEQ/L (3.5-5.1) Imaging Last Impressions Thoracic Spine X-Ray 01/28/17 0000 Signed Impressions: Service Date/Time: Saturday, January 28, 2017 12:53 - CONCLUSION: Fluoroscopic image demonstrates temporary probe at the thoracolumbar junction. Luis Cruz MD Upper Extremity Ultrasound 01/27/17 0000 Signed Impressions: Service Date/Time: Friday, January 27, 2017 18:02 - CONCLUSION: No evidence for thrombus down to the level of the cephalic vein and cephalic vein is not evaluated since the patient refused any further imaging at that point. El Jennings MD Thoracic Spine MRI 01/27/17 0000 Signed Impressions: Service Date/Time: Friday, January 27, 2017 15:28 - CONCLUSION: Enlarging epidural fluid collection epicentered at the T11-12 with moderate to severe cord compression at mid level T11 vertebral body and worse since the prior exam. There is no abnormal enhancement of this process and possibility of CSF leak into the epidural space should be entertained. The appearance is also very unlikely to represent an epidural hematoma or abscess. El Jennings MD ADDENDUM: Findings were discussed with Dr. Moreira on 01/27/2017 at the time of this dictation. El Jennings MD Lumbar Spine MRI 01/27/17 0000 Signed Impressions: Service Date/Time: Friday, January 27, 2017 15:28 - CONCLUSION: Essentially unremarkable lumbar spine study and please refer to thoracic spine MRI for the description of the findings epicentered at T11-12 in the epidural space posteriorly. El Jennings MD PE at Discharge GENERAL: NAD SKIN: Warm and dry. HEAD: Normocephalic. EYES: No scleral icterus. No injection or drainage. NECK: Supple, trachea midline. No JVD or lymphadenopathy. CARDIOVASCULAR: Regular rate and rhythm without murmurs, gallops, or rubs. RESPIRATORY: Breath sounds equal bilaterally. No accessory muscle use. GASTROINTESTINAL: Abdomen soft, non-tender, nondistended. MUSCULOSKELETAL: No cyanosis, or edema. BACK: tender without obvious deformity. No CVA tenderness. dressing in place Hospital Course Secondary to Thoracolumbar Arachnoid Cyst MRIs that showed that the patient had a subarachnoid cyst in her spine, neurosurgery was consulted and patient underwent T10, T11, T12 and L1 laminectomy with resection of epidural cyst; microsurgical technique 01/28/17. Physical therapy was consulted and pain management was provided accordingly. Antibiotics were provided secondary to left arm cellulitis which was switched to by mouth prior to discharge. All electrolyte abnormalities including hypokalemia were replaced accordingly. Psychiatry was consulted secondary to anxiety and patient was started on Klonopin. DVT and GI prophylaxis were provided. Prior to discharge, patient's condition improved and vitals remained stable Pt Condition on Discharge: Stable Discharge Disposition: Discharge Home Discharge Time: <= 30 minutes Discharge Instructions DIET: Follow Instructions for: Heart Healthy Diet Activities you can perform: Regular-No Restrictions Follow up Referrals: Neurosurgery PCP Follow-up - 1 Week New Medications: Walker Rolling/GetGo (Walker Rolling/GetGo) 1 Mis Mis EA .ROUTE DIRECTED, #1 Clonazepam (Klonopin) 0.5 Mg Tab 0.5 MG PO Q8HR for Control Anxiety, #30 TAB Cyclobenzaprine (Flexeril) 10 Mg Tab 10 MG PO Q8H PRN for MUSCLE SPASM, #30 TAB Hydrocodone-Acetaminophen (Hydrocodone-Acetaminophen) 10-325 mg Tab 1 TAB PO Q4H PRN for PAIN SCALE 1 TO 5, #30 TAB Quetiapine (Quetiapine) 100 Mg Tab 100 MG PO HS for Control Anxiety, #30 TAB Sulfamethoxazole-Trimethoprim (Sulfamethoxazole-Trimethoprim) 800-160 Mg Tab 1 TAB PO Q12HR for Infection, #14 TAB Luis Magallon MD Jan 31, 2017 12:50
[2017-01-31] MEDS ORDERED: HYDR-3583 PO (13:47)
[2017-01-31] MEDS ORDERED: CYCL1TAB29 PO (13:47)
[2017-01-31] MEDS ORDERED: SULF1TAB23 PO (13:47)
[2017-01-31] MEDS ORDERED: QUET1TAB8 PO (13:48)
[2017-01-31] MEDS ORDERED: CLON.5 PO (13:48)
[2017-01-31] MEDS ORDERED: MAGNESIUM CITRATE SOLN 300 ML BTL PO ONE (15:00)
[2017-01-31 16:49] VITALS: BP 97/55; PULSE 93; RESP 17; TEMP 98.2; O2SAT 96
[2017-01-31 20:00] VITALS: BP 102/62; PULSE 97; RESP 18; TEMP 98.3; O2SAT 98
[2017-01-31] MEDS: QUEtiapine FUMARATE 100 MG TAB PO SCH (20:24)
[2017-02-01] VITALS: BP 114/55; PULSE 101; PULSE 94; RESP 16; RESP 19; TEMP 98; TEMP 98.1; O2SAT 95; O2SAT 97
[2017-02-01] MEDS: SODIUM CHLORIDE 0.9% FLUSH 10 ML FLUSH IV FLUSH SCH ×2 (00:31→08:42)
[2017-02-01] MEDS: PROMETHAZINE INJ 25 MG/ML VIAL IM PRN (01:16)
[2017-02-01] MEDS: MORPHINE SULFATE 4 MG/ML INJ IV PRN ×4 (01:16→10:54)
[2017-02-01] MEDS: SODIUM CHLORIDE 0.9% FLUSH 10 ML FLUSH IV FLUSH PRN ×3 (01:17→05:43)
[2017-02-01] MEDS: HYDROmorphone HCL 2 MG TAB PO PRN ×2 (02:37→08:42)
[2017-02-01 04:00] VITALS: BP 92/52; PULSE 91; RESP 18; TEMP 99.3; O2SAT 95
[2017-02-01] MEDS: clonazePAM 0.5 MG TAB PO SCH ×2 (05:41→14:23)
[2017-02-01 08:00] VITALS: BP_SYST 89; BP_DIAS 51; BP_DIAS 55; PULSE 91; RESP 17; TEMP 97.7; O2SAT 97
[2017-02-01] MEDS: PANTOPRAZOLE SOD 40 MG DELAYED RELEASE TAB PO SCH (08:37)
[2017-02-01] MEDS: SULFAMETHOXAZOLE-TRIMETHOPRIM DS 800-160 MG TAB PO SCH (08:37)
[2017-02-01] MEDS: ENOXAPARIN SODIUM 40 MG/0.4 ML SYRINGE SQ SCH ×2 (08:38→08:49)
[2017-02-01] MEDS: NICOTINE 21 MG/24 HR PATCH T-DERMAL SCH (08:39)
[2017-02-01] MEDS: BISACODYL 10 MG SUPP RECTAL SCH (08:42)
[2017-02-01] MEDS: REMOVE OLD PATCH T-DERMAL SCH (08:43)
[2017-02-01 09:44] VITALS: O2SAT 96
[2017-02-01] MEDS ORDERED: SOD PHOSPHATE/SOD BIPHOSPHATE (ADULT) ENEMA 133ML RECTAL ONE (11:15)
[2017-02-01 12:00] VITALS: BP 107/59; PULSE 101; RESP 18; TEMP 97.6; O2SAT 99
--- NOTE | 2017-02-01 12:01 | HHI.PR ---
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 Complains of severe back pain. Currently afebrile. Mother by the bedside 01/30/17-patient seen and examined, she had episode of nausea overnight as well as this morning otherwise stable now. Patient was up and ambulated with heparin with PTT. Reports improvement of back pain. she Has less of a foot drop now 01/31/17-patient seen and examined, states she was up and ambulate 3 times daily. Complains of constipation. 02/01/17-patient seen and examined, she was up and ambulated during my exam, no complaint. No acute event overnight Objective Vitals Vital Signs Date Time Temp Pulse Resp B/P (MAP) Pulse Ox O2 Delivery O2 Flow Rate FiO2 02/01/17 09:44 96 02/01/17 08:00 97.7 91 17 89/51 (64) 97 89/55 (66) 02/01/17 04:00 99.3 91 18 92/52 (65) 95 02/01/17 03:40 21 02/01/17 00:00 98.0 101 19 114/55 (74) 95 02/01/17 00:00 98.1 94 16 97 01/31/17 20:00 98.3 97 18 102/62 (75) 98 01/31/17 16:49 98.2 93 17 97/55 (69) 96 01/31/17 12:45 97.9 92 17 94/53 (67) 95 I/O 01/31/17 01/31/17 01/31/17 02/01/17 02/01/17 02/01/17 06:59 14:59 22:59 06:59 14:59 22:59 Intake Total 240 ml Output Total 200 ml Balance -200 ml 240 ml Intake Oral 240 ml Output Urine Total 200 ml # Voids 3 7 Result Diagram: 01/30/1793201/30/17932 Imaging Last Impressions Thoracic Spine X-Ray 01/28/17 0000 Signed Impressions: Service Date/Time: Saturday, January 28, 2017 12:53 - CONCLUSION: Fluoroscopic image demonstrates temporary probe at the thoracolumbar junction. Luis Cruz MD Upper Extremity Ultrasound 01/27/17 0000 Signed Impressions: Service Date/Time: Friday, January 27, 2017 18:02 - CONCLUSION: No evidence for thrombus down to the level of the cephalic vein and cephalic vein is not evaluated since the patient refused any further imaging at that point. El Jennings MD Thoracic Spine MRI 01/27/17 0000 Signed Impressions: Service Date/Time: Friday, January 27, 2017 15:28 - CONCLUSION: Enlarging epidural fluid collection epicentered at the T11-12 with moderate to severe cord compression at mid level T11 vertebral body and worse since the prior exam. There is no abnormal enhancement of this process and possibility of CSF leak into the epidural space should be entertained. The appearance is also very unlikely to represent an epidural hematoma or abscess. El Jennings MD ADDENDUM: Findings were discussed with Dr. Moreira on 01/27/2017 at the time of this dictation. El Jennings MD Lumbar Spine MRI 01/27/17 0000 Signed Impressions: Service Date/Time: Friday, January 27, 2017 15:28 - CONCLUSION: Essentially unremarkable lumbar spine study and please refer to thoracic spine MRI for the description of the findings epicentered at T11-12 in the epidural space posteriorly. El Jennings MD Objective Remarks GENERAL: NAD SKIN: Warm and dry. HEAD: Normocephalic. EYES: No scleral icterus. No injection or drainage. NECK: Supple, trachea midline. No JVD or lymphadenopathy. CARDIOVASCULAR: Regular rate and rhythm without murmurs, gallops, or rubs. RESPIRATORY: Breath sounds equal bilaterally. No accessory muscle use. GASTROINTESTINAL: Abdomen soft, non-tender, nondistended. MUSCULOSKELETAL: No cyanosis, or edema. BACK: tender without obvious deformity. No CVA tenderness. dressing in place Procedures T10, T11, T12 and L1 laminectomy with resection of epidural cyst; microsurgical technique 01/28/17 A/P Problem List: (1) Cord compression ICD Code: G95.20 - Unspecified cord compression Assessment and Plan 26-year-old female with 1. 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 T10, T11, T12 and L1 laminectomy with resection of epidural cyst; microsurgical technique 01/28/17 Management per neurosurgery and consult PT Continue current pain medication accordingly Patient is too unwell 2. Left arm cellulitis Wound care nurse put appreciated and continue current recommendation Cleanse wound to L arm with normal saline and pat dry. Pack wound with 1/4 inch iodoform packing and cover with dry cover dressing. Change dressing daily Continue by mouth Bactrim 3. Continuous IV Drug 2-D echo without any vegetation 4. Tobacco dependence/Alcohol abuse Strongly recommended to stop smoking and drinking alcohol CIWA protocol and Nicotine path 5. Hypokalemia: Resolved 6. Abnormal UA 7. Anxiety Appreciate input from psychiatry Currently on Klonopin 0.5 mg twice a day, Seroquel 100 mg at bedtime DVT prophylaxis with SCDs Luis Magallon MD Feb 01, 2017 12:01
--- NOTE | 2017-02-01 13:30 | HHI.NSPN ---
History Chief Complaint: Incisional pain. Interval History 01/29/17: Delayed note entry. Pt seen and examined on 01/29 but note didn't save. Pt complains of incision pain radiating into the right leg in particular this morning. 01/30/17: Pt having significant nausea and vomiting this am. RN states she is refusing a lot of medications and bandage changes. Pt very tearful with active vomiting when I saw her this morning. 01/31/17: Pts nausea much better with Phenergan. Pt much more cooperative for exam. Complains of incisional pain. No radiculopathy or paresthesias in LEs. She states mood better also with Klonopin. 02/01/17: Patient awake and alert complains of incisional back pain. No radiculopathy in the lower extremities. Patient is using Dilaudid oral for pain control and morphine IV for breakthrough pain. Review of Systems General: Negative for: fever, chills, insomnia Respiratory: Negative for: shortness of breath, cough, sputum Cardiovascular: Negative for: chest pain Gastrointestinal: Positive for: constipation, Negative for: nausea, vomitting, diarrhea Exam Results Vital Signs Date Time Temp Pulse Resp B/P (MAP) Pulse Ox O2 Delivery O2 Flow Rate FiO2 02/01/17 09:44 96 02/01/17 08:00 97.7 91 17 89/51 (64) 89/55 (66) 02/01/17 03:40 21 01/28/17 18:00 Room Air 01/28/17 15:30 2 Physical Examination Resp: CTA bilaterally Heart: NSR no murmurs Abd: Soft positive bs Skin: No cyanosis or erythema. Incision is clean and dry with faina in place. New bandage placed. No signs of infection. Muscle: Right foot drop. The lower extremity right iliopsoas is 4-, quadriceps is 4-, dorsiflexion and plantar flexion 0/5. She can barely wiggle her toes. Left side more proximally iliopsoas and quadriceps is 4-, dorsiflexion 2/5, plantar flexion 2/5. Neuro: Pt awake and alert. Follows commands well. Speech clear and appropriate. Medical Decision Making Impression and Plan A: 26 y/o FM s/p T10, T11, T12 and L1 laminectomy with resection of epidural cyst; microsurgical technique. P: Continue to monitor incision. Continue with current care Continue with PT. Fleets enema for constipation Follow up 02/07 for staple removal. Luis Valle Feb 01, 2017 1:30 pm
[2017-02-01 16:00] VITALS: BP 109/62; PULSE 99; RESP 17; TEMP 98.3; O2SAT 93
== END 2017-02-01 17:48 | disposition home or self-care (01) | DRG 29 ==
LOC: NEPC 10:49 → NEDA 16:57 → OBSVTOIN 17:08 → N07A 20:46 → N05B 01-28 15:50
PROVIDERS: ADMIT Hospitalist; ATTEND Hospitalist
PROC: 0H96XZZ Drainage of Back Skin, External Approach (ICD-10-PCS; principal; 2017-01-27)
PROC: 00BY0ZZ Excision of Lumbar Spinal Cord, Open Approach (ICD-10-PCS; 2017-01-28)
PROC: 00BX0ZZ Excision of Thoracic Spinal Cord, Open Approach (ICD-10-PCS; 2017-01-28)
DX: G96.19 Other disorders of meninges, not elsewhere classified (principal); L03.114 Cellulitis of left upper limb; F11.10 Opioid abuse, uncomplicated; F14.10 Cocaine abuse, uncomplicated; R32 Unspecified urinary incontinence; F17.210 Nicotine dependence, cigarettes, uncomplicated; J45.909 Unspecified asthma, uncomplicated; F31.9 Bipolar disorder, unspecified; B19.20 Unspecified viral hepatitis C without hepatic coma; E87.6 Hypokalemia; F41.9 Anxiety disorder, unspecified; M21.371 Foot drop, right foot; K59.00 Constipation, unspecified
CPT/HCPCS: 10061; 72020; 72157; 72158; 76000; 80048; 80053; 80307; 81001; 83735; 84703; 85025; 85610; 85730; 86403; 87040; 87070; 87147; 87186; 87205; 88304; 88305; 93005; 93306; 93971; 94150; 96365; 96375; A9579; E0100; J0131; J0690; J0692; J1100; J1170; J1650; J2060; J2250; J2270; J2405; J2550; J3010; J3370; J3480; J7030; J7050; J7120

== ENCOUNTER 2017-02-04 11:04 | Observation (INO) | payer BC, MEDICAID, OTHER ==
[2017-02-04] VITALS (7 sets, daily range): BP systolic 93–125; BP diastolic 54–81; PULSE 58–102; RESP 12–16; TEMP 97.8; O2SAT 97–100
[~2017-02-04 11:04] MED LIST changes: -ALBU6.7H INH; +CLON.5 PO; +CYCL1TAB29 PO; +GETGO ROLLING W1 MI1; +HYDR-3583 PO; +QUET1TAB8 PO; +SULF1TAB23 PO
--- NOTE | 2017-02-04 11:19 | PD ---
Physical Exam Date Seen by Provider: Feb 04, 2017 Time Seen by Provider: 11:15 Narrative Pt is presenting due to pain after spinal surgery. Pt is1 week post op. Pt had laminectomy at T10-L1 with abscess resection. She reports increased pain and numbness to right lower leg. Pt reports sweats and chills. Pt states pain has not been controlled since surgery and has been getting increasingly worse. VSS, awaiting bed placement. Data Data Last Documented VS Vital Signs Date Time Temp Pulse Resp B/P (MAP) Pulse Ox O2 Delivery O2 Flow Rate FiO2 02/04/17 11:06 97.8 102 15 125/72 (89) 97 MDM Supervised Visit with JIMMY: Peyton Lazcano Feb 04, 2017 11:19
[2017-02-04] MEDS ORDERED: HYDROmorphone HCL PF 1 MG/ML VIAL IV PUSH ONE ×2 (11:30→15:30)
[2017-02-04] MEDS ORDERED: SODIUM CHLOR 0.9% 1000 ML INJ 1,000 ML IV SCH ×2 (11:30→18:48)
[2017-02-04] MEDS ORDERED: SODIUM CHLORIDE 0.9% FLUSH 10 ML FLUSH IV FLUSH PRN ×2 (11:30→19:00)
[2017-02-04] MEDS ORDERED: ONDANSETRON HCL 4 MG/2 ML VIAL IVP ONE (11:30)
--- NOTE | 2017-02-04 11:44 | PD ---
HPI Chief Complaint: Medical Clearance Time Seen by Provider: 11:29 Travel History International Travel<30 days: No Contact w/Intl Traveler<30days: No Traveled to known affect area: No History of Present Illness HPI Patient comes back to the emergency Department complaining of increasing back pain, numbness in right lower extremity, increased frequency of urinating on herself, chills, and sweats since being discharged from the hospital 3 days ago status post laminectomy. Patient states she's been taking the [place] as prescribed for pain without any improvement of her pain. Patient states she has not done heroin since approximately 2-3 days prior to her previous admission. Denies any known fevers, chest pain, shortness of breath, nausea, or vomiting. Patient denies any trauma. Patient reports she's been taking her antibiotics as prescribed. Patient is somewhat uncooperative at this time thus limiting H&P. PFSH Past Medical History Anemia: Yes Asthma: Yes Bipolar Disorder: Yes Anxiety: Yes Cardiovascular Problems: Yes (heart murmer) Diminished Hearing: No Gastrointestinal Disorders: Yes (bm x2 times a month) Genitourinary: Yes (incontent) Headaches: Yes (headaches every day) Immune Disorder: Yes (Lupus) Musculoskeletal: No Neurologic: Yes Psychiatric: Yes (BIPOLAR, DEPRESSION, PTSD) Reproductive: No Respiratory: Yes Influenza Vaccination: Yes ?: Not LMP: DOES NOT HAVE THEM : 8 Para: 4 Miscarriage: 4 Past Surgical History Gynecologic Surgery: Yes (partial Hysterectomy 2014) Hysterectomy: Yes Pacemaker: No Other Surgery: Yes (4 csections hysterectomy) Social History Alcohol Use: No Tobacco Use: Yes (1/2-1PPD) Substance Use: Yes ( IV DRUG Herion LAST USED 10 DAYS AGO) Allergies-Medications (Allergen,Severity, Reaction): Coded Allergies: codeine (Unverified Allergy, Mild, Itching, 02/04/17) milk (Unverified Adverse Reaction, Mild, Diarrhea, 02/04/17) Reported Meds & Prescriptions Reported Meds & Active Scripts Active Quetiapine (Quetiapine Fumarate) 100 Mg Tab 100 Mg PO HS Klonopin (Clonazepam) 0.5 Mg Tab 0.5 Mg PO Q8HR Hydrocodone-Acetaminophen 10-325 mg Tab 1 Tab PO Q4H PRN Flexeril (Cyclobenzaprine HCl) 10 Mg Tab 10 Mg PO Q8H PRN Sulfamethoxazole-Trimethoprim 800-160 Mg Tab 1 Tab PO Q12HR Walker Rolling/GetGo (Device) 1 Mis Mis Ea .ROUTE DIRECTED Review of Systems ROS Limitations: Combative Except as stated in HPI: all other systems reviewed are Neg Physical Exam Exam Limitations: Uncooperative Narrative GENERAL: Well-developed, well nourished, in no acute distress, and non-ill appearing. SKIN: Focused skin assessment warm and dry. Feet are black from dirt. Dressing in place over previous surgery thoracic spine dated 02/01. Change in the Hospital prior to discharge. Dressing was removed. Diane are dry clean intact. There is no drainage or erythematous noted around the site. Patient reports tenderness around the site. There is no crepitus. HEAD: Atraumatic. Normocephalic. EYES: Pupils equal and round. EOMI. No scleral icterus. No injection or drainage. ENT: No nasal bleeding or discharge. Mucous membranes pink and moist. NECK: Trachea midline. Supple. No nuclear rigidity. Patient reports tenderness over cervical spine. There is no crepitus. RESPIRATORY: No accessory muscle use. No respiratory distress. MUSCULOSKELETAL: No obvious deformities. No clubbing. No cyanosis. No edema. Foot drop noted on right. Patient currently refusing further assessment of her lower extremities. Reports tenderness to palpation throughout spinal column. NEUROLOGICAL: Awake and alert. No obvious cranial nerve deficits. Motor grossly within normal limits. Normal speech. PSYCHIATRIC: Appropriate mood and affect; insight and judgment normal. Data Data Last Documented VS Vital Signs Date Time Temp Pulse Resp B/P (MAP) Pulse Ox O2 Delivery O2 Flow Rate FiO2 02/04/17 17:51 86 12 101/56 (71) 97 Room Air 02/04/17 11:06 97.8 Orders Orders Basic Metabolic Panel (Bmp) (02/04/17 11:30) Complete Blood Count With Diff (02/04/17 11:30) Prothrombin Time / Inr (Pt) (02/04/17 11:30) Act Partial Throm Time (Ptt) (02/04/17 11:30) Urinalysis - C+S If Indicated (02/04/17 11:30) Iv Access Insert/Monitor (02/04/17 11:30) Ecg Monitoring (02/04/17 11:30) Oximetry (02/04/17 11:30) Ondansetron Inj (Zofran Inj) (02/04/17 11:30) Sodium Chlor 0.9% 1000 Ml Inj (Ns 1000 M (02/04/17 11:30) Sodium Chloride 0.9% Flush (Ns Flush) (02/04/17 11:30) Ed Urine Pregnancytest Poc (02/04/17 11:30) Hydromorphone Pf Inj (Dilaudid Pf Inj) (02/04/17 11:30) Mri C Spine W&W/O Contrast (02/04/17 ) Mri T Spine W & W/O Contrast (02/04/17 ) Mri L Spine W&W/O Contrast (02/04/17 ) Drug Screen, Random Urine (02/04/17 11:39) Chest, Single Ap (02/04/17 ) Urine Culture (02/04/17 12:10) Ketorolac Inj (Toradol Inj) (02/04/17 14:00) Hydromorphone Pf Inj (Dilaudid Pf Inj) (02/04/17 15:30) Lorazepam Inj (Ativan Inj) (02/04/17 15:30) Lorazepam Inj (Ativan Inj) (02/04/17 16:30) Ziprasidone Inj (Geodon Inj) (02/04/17 17:00) Lorazepam Inj (Ativan Inj) (02/04/17 17:45) Diphenhydramine Inj (Benadryl Inj) (02/04/17 17:45) Admit Order (Ed Use Only) (02/04/17 18:35) Consult Neurosurgery (02/04/17 ) Ceftriaxone Inj (Rocephin Inj) (02/04/17 18:45) Labs Laboratory Tests Test 02/04/17 11:46 02/04/17 12:10 White Blood Count 12.1 TH/MM3 Red Blood Count 4.60 MIL/MM3 Hemoglobin 13.7 GM/DL Hematocrit 41.5 % Mean Corpuscular Volume 90.3 FL Mean Corpuscular Hemoglobin 29.7 PG Mean Corpuscular Hemoglobin Concent 32.9 % Red Cell Distribution Width 13.7 % Platelet Count 444 TH/MM3 Mean Platelet Volume 7.8 FL Neutrophils (%) (Auto) 66.5 % Lymphocytes (%) (Auto) 24.2 % Monocytes (%) (Auto) 7.5 % Eosinophils (%) (Auto) 1.0 % Basophils (%) (Auto) 0.8 % Neutrophils # (Auto) 8.1 TH/MM3 Lymphocytes # (Auto) 2.9 TH/MM3 Monocytes # (Auto) 0.9 TH/MM3 Eosinophils # (Auto) 0.1 TH/MM3 Basophils # (Auto) 0.1 TH/MM3 CBC Comment DIFF FINAL Differential Comment Prothrombin Time 11.4 SEC Prothromb Time International Ratio 1.0 RATIO Activated Partial Thromboplast Time 32.2 SEC Blood Urea Nitrogen 18 MG/DL Creatinine 0.70 MG/DL Random Glucose 82 MG/DL Calcium Level 9.2 MG/DL Sodium Level 138 MEQ/L Potassium Level 3.9 MEQ/L Chloride Level 104 MEQ/L Carbon Dioxide Level 25.2 MEQ/L Anion Gap 9 MEQ/L Estimat Glomerular Filtration Rate 100 ML/MIN Urine Color YELLOW Urine Turbidity CLOUDY Urine pH 6.0 Urine Specific [place] 1.032 Urine Protein 30 mg/dL Urine Glucose (UA) NEG mg/dL Urine Ketones NEG mg/dL Urine Occult Blood NEG Urine Nitrite NEG Urine Bilirubin NEG Urine Urobilinogen LESS THAN 2.0 MG/DL Urine Leukocyte Esterase LARGE Urine RBC 37 /hpf Urine WBC 18 /hpf Urine Squamous Epithelial Cells 33 /hpf Urine Amorphous Sediment RARE Urine Bacteria RARE /hpf Urine Mucus MANY /lpf Microscopic Urinalysis Comment CULTURE INDICATED Urine Opiates Screen POS Urine Barbiturates Screen NEG Urine Amphetamines Screen NEG Urine Benzodiazepines Screen NEG Urine Cocaine Screen POS Urine Cannabinoids Screen NEG MDM Medical Decision Making Medical Screen Exam Complete: Yes Emergency Medical Condition: Yes Medical Record Reviewed: Yes Interpretation(s) Chest x-ray read by the radiologist shows: No acute disease. Differential Diagnosis Abscess, intractable pain, pneumonia, UTI, drug-seeking, postoperative infection , other Narrative Course Patient seen and examined. IV was established. Initial laboratory and radiological studies were ordered. We'll check labs along with MRI of the entire spine to rule out epidural abscesses and/or postoperative infection. 1335 patient resting comfortably in bed in no acute distress. Patient is more cooperative currently. Patient reports since being released from the hospital she is noticing increased pain in her neck with tingling to bilateral upper extremities were more than left. Along with increase loss of sensation in her right lower extremity. On exam patient reports decreased sensation first web space and right lower extremity compared to left. Along with decreased sensation to sharp and light touch on the plantar surface of the right lower extremity. Patient is unable to dorsiflex and reports she is unable to plantar flex with right foot as well. Patient states she's been walking with a cane or being carried around by her significant other. Patient was premedicated for MRI using Ativan. Patient still unable to tolerate MRI. Dr. Raza had ordered Geodon. Patient again was unable to tolerate MRI. Dr. Raza again ordered additional medication of Ativan and Benadryl. At this point I spoke with Dr. Whitt, who recommends having the patient admitted for pain control as he believes this is the main issue and to get MRI whenever possible. Discussed patient with hospitalist, who is agreeable to admit the patient. Physician Communication Physician Communication [phone] Ennis, neurosurgery, varicose having patient admitted for pain control and get MRI whenever possible. He will consult. [phone] Albarado, who is agreeable to admit the patient. Diagnosis Primary Impression: Severe back pain Additional Impression: UTI (urinary tract infection) Qualified Codes: N39.0 - Urinary tract infection, site not specified; R31.9 - Hematuria, unspecified Admitting Information Admitting Physician Requests: Observation Condition: Stable Dajuan Cheek Feb 04, 2017 11:44
[2017-02-04 12:05] LABS: AUTOMATED NEUTROPHIL # 8.1 TH/MM3 (1.8-7.7); BASOPHIL # 0.1 TH/MM3 (0-0.2); BASOPHIL % 0.8 % (0.0-2.0); EOSINOPHIL # 0.1 TH/MM3 (0-0.4); HEMATOCRIT 41.5 % (35.0-46.0); HEMO FLAGS DIFF FINAL; LYMPH % 24.2 % (9.0-44.0); LYMPHOCYTE # 2.9 TH/MM3 (1.0-4.8); MEAN CELL VOLUME 90.3 FL (80.0-100.0); MEAN CORPUSCULAR HEMOGLOBIN 29.7 PG (27.0-34.0); MEAN CORPUSCULAR HGB CONC 32.9 % (32.0-36.0); MONO % 7.5 % (0.0-8.0); NEUT % 66.5 % (16.0-70.0); PLATELET COUNT 444 TH/MM3 (150-450); RED CELL DISTRIBUTION WIDTH 13.7 % (11.6-17.2); WHITE BLOOD COUNT 12.1 TH/MM3 (4.0-11.0)
[2017-02-04 12:14] LABS: APTT (PATIENT) 32.2 SEC (24.3-30.1); PROTHROMBIN TIME - PATIENT 11.4 SEC (9.8-11.6)
[2017-02-04 12:23] LABS: BICARBONATE 25.2 MEQ/L (21.0-32.0); POTASSIUM 3.9 MEQ/L (3.5-5.1)
--- NOTE | 2017-02-04 12:30 | RADRPT ---
EXAM DATE/TIME: 02/04/2017 11:48 [facility] COMPARISON: No previous studies available for comparison. INDICATIONS : Patient is experiencing pain in chest and upper back. MEDICAL HISTORY : Stroke. SURGICAL HISTORY : Hysterectomy. thoracic laminectomy ENCOUNTER: Initial ACUITY: 3 days PAIN SCORE: 6/10 LOCATION: Bilateral upper back and chest FINDINGS: A single view of the chest demonstrates the lungs to be symmetrically aerated without evidence of mas s, infiltrate or effusion. The cardiomediastinal contours are unremarkable. Osseous structures are intact. CONCLUSION: No acute disease. Anjum Smith MD FACR on February 04, 2017 at 12:27 Board Certified Radiologist. This report was verified electronically.
[2017-02-04 12:42] LABS: BACTERIA, URINE RARE /hpf; BLOOD, URINE NEG (NEG); COMMENT (UR) CULTURE INDICATED; CULTURE IF INDICATED CULTURE INDICATED; GLUCOSE,URINE NEG (NEG); KETONE, URINE NEG (NEG); MUCUS URINE MANY /lpf (OCC); NITRITE,URINE NEG (NEG); SQUAMOUS EPITHELIAL CELL URINE 33 /hpf (0-5); URINE COLOR YELLOW (YELLW/STRAW)
[2017-02-04] MEDS ORDERED: KETOROLAC TROMETHAMINE 30 MG/ML (IVP) VIAL IV PUSH ONE (14:00)
[2017-02-04] MEDS ORDERED: LORazepam 2 MG/ML VIAL IV PUSH ONE ×3 (15:30→17:45)
[2017-02-04] MEDS ORDERED: ZIPRASIDONE MESYLATE 20 MG VIAL IM ONE (17:00)
[2017-02-04] MEDS ORDERED: diphenhydrAMINE HCL 50 MG/ML VIAL IV PUSH ONE (17:45)
[2017-02-04] MEDS ORDERED: GADODIAMIDE PF 287 MG/ML 10 ML VIAL (for RAD MRI) IV PUSH ONE (18:39)
[2017-02-04] MEDS ORDERED: cefTRIAXone INJ 1,000 MG in SODIUM CHLORIDE 0.9% INJ 100 ML IV ONE (18:45)
[2017-02-04] MEDS ORDERED: oxyCODONE/ACETAMINOPHEN 10 MG/325 MG TAB PO PRN (19:00)
[2017-02-04] MEDS ORDERED: ONDANSETRON HCL 4 MG/2 ML VIAL IVP PRN (19:00)
[2017-02-04] MEDS ORDERED: LORazepam 2 MG TAB PO PRN (19:00)
[2017-02-04] MEDS ORDERED: NALOXONE HCL 0.4 MG/ML AMP IV PRN (19:00)
[2017-02-04] MEDS ORDERED: oxyCODONE/ACETAMINOPHEN 5 MG/325 MG TAB PO PRN (19:00)
[2017-02-04] MEDS ORDERED: MORPHINE SULFATE 4 MG/ML INJ IV PRN ×2 (19:00)
[2017-02-04] MEDS ORDERED: SENNOSIDES 8.6 MG TAB PO PRN (19:00)
[2017-02-04] MEDS ORDERED: ACETAMINOPHEN 325 MG TAB PO PRN (19:00)
[2017-02-04] MEDS ORDERED: LORazepam 2 MG/ML VIAL IV PUSH PRN ×4 (19:00)
[2017-02-04] MEDS ORDERED: LORazepam 1 MG TAB PO PRN (19:00)
[2017-02-04] MEDS ORDERED: LACTULOSE SYRUP 20 GM/30 ML CUP PO PRN (19:00)
[2017-02-04] MEDS ORDERED: MAGNESIUM HYDROXIDE SUSP 30 ML CUP PO PRN (19:00)
[2017-02-04] MEDS ORDERED: FLUMAZENIL 0.5 MG/5 ML VIAL IV PUSH PRN (19:00)
[2017-02-04] MEDS ORDERED: BISACODYL 10 MG SUPP RECTAL PRN (19:00)
[2017-02-04] MEDS ORDERED: CYCLOBENZAPRINE HCL 10 MG TAB PO PRN (19:00)
[2017-02-04] MEDS ORDERED: HALOPERIDOL LACTATE 5 MG/ML AMP IM PRN (19:00)
[2017-02-04] MEDS ORDERED: PROCHLORPERAZINE 25 MG SUPP RECTAL PRN (19:00)
--- NOTE | 2017-02-04 20:41 | RADRPT ---
EXAM DATE/TIME: 02/04/2017 18:44 [facility] COMPARISON: MRI LUMBAR SPINE W & W/O CONTRAST, January 27, 2017, 15:28. INDICATIONS : Pain. CONTRAST: 10 cc Omniscan (gadodiamide) IV MEDICAL HISTORY : Anemia. SURGICAL HISTORY : section. Hysterectomy. Thoracic laminectomy. ENCOUNTER: Subsequent ACUITY: 1 week PAIN SCORE: 3/10 LOCATION: Lower back. TECHNIQUE: Multiplanar multisequence MRI of the lumbar spine was performed with and without contr ast. FINDINGS: The most caudal appearing lumbar vertebra is numbered as L5. VERTEBRAE: The lumbar vertebral bodies are normal in height and demonstrate normal signal. Again noted is a posterior epidural fluid collection extending over a 10.4 cm length from the inferior aspe ct of T10 to the mid to inferior aspect of the L1 level. This appears complex. It demonstrates perip heral enhancement. There does appear to be postsurgical change at the posterior elements of T11 and T 12. These changes will be more fully described in the MRI examination of the thoracic spine. The [place] person is scheduled for that examination. CONUS: Normal level and configuration. POST CONTRAST: No abnormal areas of contrast enhancement are seen in the lumbar spine. The tax collector ior epidural collection demonstrates peripheral enhancement. T12-L1: Again noted is the posterior epidural fluid collection. This extends around the lateral as pects of the thecal sac. This lateral extension is more prominent on the right. The posterior epidu ral complex fluid collection does cause moderate narrowing of the thecal sac with a small amount of C SF seen around the nerve roots and conus at this level. The disc is intact. The neural foramina are normal. L1-L2: The thecal sac has a normal diameter. No evidence of disc bulge or protrusion. The neural f oramina are patent bilaterally. L2-L3: The thecal sac has a normal diameter. No evidence of disc bulge or protrusion. The neural f oramina are patent bilaterally. L3-L4: The thecal sac has a normal diameter. No evidence of disc bulge or protrusion. The neural f oramina are patent bilaterally. L4-L5: The thecal sac has a normal diameter. No evidence of disc bulge or protrusion. The neural f oramina are patent bilaterally. L5-S1: The thecal sac has a normal diameter. No evidence of disc bulge or protrusion. The neural f oramina are patent bilaterally. CONCLUSION: Large posterior epidural complex fluid collection seen extending from T10 through L1. There does appear to be moderate narrowing of the thecal sac at the T12-L1 level. The posterior ep idural fluid collection will be more fully described in the MRI examination of the thoracic spine to follow. Romeo Smith MD on February 04, 2017 at 20:27 Board Certified Radiologist. This report was verified electronically.
[2017-02-04] MEDS ORDERED: SODIUM CHLORIDE 0.9% FLUSH 10 ML FLUSH IV FLUSH SCH (21:00)
[2017-02-04] MEDS ORDERED: DOCUSATE SODIUM 50 MG/SENNA 8.6 MG TAB PO SCH (21:00)
[2017-02-04] MEDS ORDERED: QUEtiapine FUMARATE 100 MG TAB PO SCH (21:00)
--- NOTE | 2017-02-04 21:27 | HHI.HP ---
[facility] No Primary Care Physician Admission Diagnosis Intractable Back pain, UTI, IVDA Diagnoses: Chief Complaint: back pain, urinary frequency Travel History International Travel<30 Days: No Contact w/Intl Traveler <30 Da: No Traveled to Known Affected Are: No History of Present Illness 26 y/o female with a history of IVDA, anemia, bipolar, and lupus presented to the ED with increasing back pain and RLE numbness. She is s/p Laminectomy on Jan 28 and was just discharged on Feb 01. She was discharged on Gap for pain, and Bactrim for antibiotics. She states at home she has had increasing back pain at surgical site for the last 2 days with associated numbness in her RLE from her toes to her calf, and she thinks her foot drop has gotten worse. She also has been urinating more frequently with some incontinence. The significant other is at bedside and states he has been helping to carry her around because of the pain and difficulty walking. She is unsure if she has had a fever but does have chills. She denies any chest pain, sob, nausea or vomiting. Review of Systems Except as stated in HPI: all other systems reviewed are Neg Past Family Social History Past Medical History Anemia Asthma Bipolar disorder Hepatitis C Lupus Past Surgical History Laminectomy T10- S1 with resection of epidural cyst Hysterectomy C section x 4 Neck surgery when she was [age] years of age Reported Medications Reported Meds & Active Scripts Active Quetiapine (Quetiapine Fumarate) 100 Mg Tab 100 Mg PO HS Klonopin (Clonazepam) 0.5 Mg Tab 0.5 Mg PO Q8HR Hydrocodone-Acetaminophen 10-325 mg Tab 1 Tab PO Q4H PRN Flexeril (Cyclobenzaprine HCl) 10 Mg Tab 10 Mg PO Q8H PRN Sulfamethoxazole-Trimethoprim 800-160 Mg Tab 1 Tab PO Q12HR Walker Rolling/GetGo (Device) 1 Mis Mis Ea .ROUTE DIRECTED Allergies: Coded Allergies: codeine (Unverified Allergy, Mild, Itching, 02/04/17) milk (Unverified Adverse Reaction, Mild, Diarrhea, 02/04/17) Active Ordered Medications Current Medications Medications (Trade) Dose Ordered Sig/Fredi Route Start Time Stop Time Status Last Admin Sodium Chloride 1,000 ml @ 100 mls/hr Q10H IV 02/04/17 18:48 (NS Flush) 2 ml UNSCH PRN IV FLUSH 02/04/17 19:00 (NS Flush) 2 ml BID IV FLUSH 02/04/17 21:00 (Tylenol) 650 mg Q4H PRN PO 02/04/17 19:00 (Zofran Inj) 4 mg Q6H PRN IVP 02/04/17 19:00 (Compazine Supp) 25 mg Q12H PRN RECTAL 02/04/17 19:00 (Percocet 5-325 Mg) 1 tab Q6H PRN PO 02/04/17 19:00 (Percocet 10-325 Mg) 1 tab Q6H PRN PO 02/04/17 19:00 (Morphine Inj) 2 mg Q3H PRN IV 02/04/17 19:00 (Morphine Inj) 4 mg Q3H PRN IV 02/04/17 19:00 (Narcan Inj) 0.4 mg UNSCH PRN IV 02/04/17 19:00 (Demetra-Colace) 1 tab BID PO 02/04/17 21:00 (Milk Of Magnesia Liq) 30 ml Q12H PRN PO 02/04/17 19:00 (Senokot) 17.2 mg Q12H PRN PO 02/04/17 19:00 (Dulcolax Supp) 10 mg DAILY PRN RECTAL 02/04/17 19:00 (Lactulose Liq) 30 ml DAILY PRN PO 02/04/17 19:00 (Romazicon Inj) 0.2 mg Q1M PRN IV PUSH 02/04/17 19:00 (Ativan) 1 mg Q4H PRN PO 02/04/17 19:00 (Ativan Inj) 1 mg Q4H PRN IV PUSH 02/04/17 19:00 (Ativan) 2 mg Q2H PRN PO 02/04/17 19:00 (Ativan Inj) 2 mg Q2H PRN IV PUSH 02/04/17 19:00 (Ativan Inj) 2 mg Q1H PRN IV PUSH 02/04/17 19:00 (Ativan Inj) 2 mg Q15M PRN IV PUSH 02/04/17 19:00 (Haldol Inj) 2 mg Q15M PRN IM 02/04/17 19:00 (KlonoPIN) 0.5 mg Q8HR PO 02/04/17 22:00 (Flexeril) 10 mg Q8H PRN PO 02/04/17 19:00 (SEROquel) 100 mg HS PO 02/04/17 21:00 Ceftriaxone Sodium 1000 mg/ Sodium Chloride 100 ml @ 200 mls/hr Q24H IV 02/05/17 18:00 Family History Patient denies any family history, no heart disease or cancer. Social History Tobacco use: 1/2 PPD Alcohol use: Occasionally Illicit drug use: Heroin and cocaine Patient lives with her significant other Physical Exam Vital Signs Vital Signs Date Time Temp Pulse Resp B/P (MAP) Pulse Ox O2 Delivery O2 Flow Rate FiO2 02/04/17 20:22 71 101/55 (70) Room Air 02/04/17 17:51 86 12 101/56 (71) 97 Room Air 02/04/17 13:48 89 16 103/76 (85) 98 Room Air 02/04/17 12:03 98 16 108/81 (90) 98 Room Air 02/04/17 11:06 97.8 102 15 125/72 (89) 97 Physical Exam GENERAL: This is a well-nourished, well-developed patient, in no apparent distress. SKIN: No rashes, ecchymoses or lesions. Cool and dry. Thoracic spine Diane intact, no redness, mild edema to the right side of upper diane, no drainage noted HEAD: Atraumatic. Normocephalic. EYES: Pupils equal round and reactive. ENT: Nose without bleeding, purulent drainage or septal hematoma. Airway patent. NECK: Trachea midline. No JVD or lymphadenopathy. Supple, nontender, no meningeal signs. CARDIOVASCULAR: Regular rate and rhythm without murmurs, gallops, or rubs. RESPIRATORY: Clear to auscultation. Breath sounds equal bilaterally. No wheezes , rales, or rhonchi. GASTROINTESTINAL: Abdomen soft, non-tender, nondistended. MUSCULOSKELETAL: Right foot drop, decreased sensation. No calf tenderness. NEUROLOGICAL: Alert and tired. Motor and sensory grossly within normal limits. RLE weaker, unable to flex Normal speech. Laboratory Laboratory Tests Test 02/04/17 11:46 02/04/17 12:10 White Blood Count 12.1 Red Blood Count 4.60 Hemoglobin 13.7 Hematocrit 41.5 Mean Corpuscular Volume 90.3 Mean Corpuscular Hemoglobin 29.7 Mean Corpuscular Hemoglobin Concent 32.9 Red Cell Distribution Width 13.7 Platelet Count 444 Mean Platelet Volume 7.8 Neutrophils (%) (Auto) 66.5 Lymphocytes (%) (Auto) 24.2 Monocytes (%) (Auto) 7.5 Eosinophils (%) (Auto) 1.0 Basophils (%) (Auto) 0.8 Neutrophils # (Auto) 8.1 Lymphocytes # (Auto) 2.9 Monocytes # (Auto) 0.9 Eosinophils # (Auto) 0.1 Basophils # (Auto) 0.1 CBC Comment DIFF FINAL Differential Comment Prothrombin Time 11.4 Prothromb Time International Ratio 1.0 Activated Partial Thromboplast Time 32.2 Blood Urea Nitrogen 18 Creatinine 0.70 Random Glucose 82 Calcium Level 9.2 Sodium Level 138 Potassium Level 3.9 Chloride Level 104 Carbon Dioxide Level 25.2 Anion Gap 9 Estimat Glomerular Filtration Rate 100 Urine Color YELLOW Urine Turbidity CLOUDY Urine pH 6.0 Urine Specific [place] 1.032 Urine Protein 30 Urine Glucose (UA) NEG Urine Ketones NEG Urine Occult Blood NEG Urine Nitrite NEG Urine Bilirubin NEG Urine Urobilinogen LESS THAN 2.0 Urine Leukocyte Esterase LARGE Urine RBC 37 Urine WBC 18 Urine Squamous Epithelial Cells 33 Urine Amorphous Sediment RARE Urine Bacteria RARE Urine Mucus MANY Microscopic Urinalysis Comment CULTURE INDICATED Urine Opiates Screen POS Urine Barbiturates Screen NEG Urine Amphetamines Screen NEG Urine Benzodiazepines Screen NEG Urine Cocaine Screen POS Urine Cannabinoids Screen NEG Date/Time Source Procedure Growth Status 02/04/17 12:10 Urine Clean Catch Urine Culture Pending Received Result Diagram: 02/04/17 1146 02/04/17 1146 Imaging Last Impressions Chest X-Ray 02/04/17 0000 Signed Impressions: Service Date/Time: Saturday, February 04, 2017 11:48 - CONCLUSION: No acute disease. Anjum Smith MD FACR Caprini VTE Risk Assessment Caprini VTE Risk Assessment: No/Low Risk (score <= 1) Caprini Risk Assessment Model Point Value = 1 Point Value = 2 Point Value = 3 Point Value = 5 Age 41-60 Minor surgery BMI > 25 kg/m2 Swollen legs Varicose veins or History of unexplained or recurrent spontaneous Oral contraceptives or hormone replacement Sepsis (< 1 month) Serious lung disease, including pneumonia (< 1 month) Abnormal pulmonary function Acute myocardial infarction Congestive heart failure (< 1 month) History of inflammatory bowel disease Medical patient at bed rest Age 61-74 Arthroscopic surgery Major open surgery (> 45 min) Laparoscopic surgery (> 45 min) Malignancy Confined to bed (> 72 hours) Immobilizing plaster cast Central venous access Age >= 75 History of VTE Family history of VTE Factor V Leiden Prothrombin [id number] Lupus anticoagulant Anticardiolipin antibodies Elevated serum homocysteine Heparin-induced thrombocytopenia Other congenital or acquired thrombophilia Stroke (< 1 month) Elective arthroplasty Hip, pelvis, or leg fracture Acute spinal cord injury (< 1 month) Prophylaxis Regimen Total Risk Factor Score Risk Level Prophylaxis Regimen 0-1 Low Early ambulation 2 Moderate Order ONE of the following: *Sequential Compression Device (SCD) *Heparin 5000 units SQ BID 3-4 Higher Order ONE of the following medications: *Heparin 5000 units SQ TID *Enoxaparin/Lovenox 40 mg SQ daily (WT < 150 kg, CrCl > 30 mL/min) *Enoxaparin/Lovenox 30 mg SQ daily (WT < 150 kg, CrCl > 10-29 mL/min) *Enoxaparin/Lovenox 30 mg SQ BID (WT < 150 kg, CrCl > 30 mL/min) AND/OR *Sequential Compression Device (SCD) 5 or more Highest Order ONE of the following medications: *Heparin 5000 units SQ TID (Preferred with Epidurals) *Enoxaparin/Lovenox 40 mg SQ daily (WT < 150 kg, CrCl > 30 mL/min) *Enoxaparin/Lovenox 30 mg SQ daily (WT < 150 kg, CrCl > 10-29 mL/min) *Enoxaparin/Lovenox 30 mg SQ BID (WT < 150 kg, CrCl > 30 mL/min) AND *Sequential Compression Device (SCD) Assessment and Plan Problem List: (1) Severe back pain ICD Code: M54.9 - Dorsalgia, unspecified Status: Acute (2) UTI (urinary tract infection) ICD Code: N39.0 - Urinary tract infection, site not specified Status: Acute (3) Leukocytosis ICD Code: D72.829 - Elevated white blood cell count, unspecified Status: Acute Assessment and Plan 26 y/o female with a history of IVDA, anemia, bipolar, and lupus presented to the ED with increasing back pain and RLE numbness. She is s/p Laminectomy on Jan 28 and was just discharged on Feb 01. She was discharged on Gap for pain, and Bactrim for antibiotics. She states at home she has had increasing back pain for the last 2 days and she has had numbness in her RLE from her toes to her calf, and she thinks her foot drop has gotten worse. Severe Back pain, s/p Laminectomy T10-L1 on Jan 28, R/O abscess Lumbar spine MRI reviewed and shows a large posterior epidural complex fluid collection seen extending from T10-L1. -Consult Neurosurgery, Dr. Whitt for recommendations -Pain management with Gap PO and Morphine IV -MRI Thoracic spine pending Leukocytosis, mild, suspected UTI due to E Coli, patient with frequent urination , no fevers Abnormal UA, WBC 12.1 -Urine culture pending -Rocephin IV daily -Blood cultures ordered Polysubstance abuse -Counseled on quitting DVT prophylaxis: SCDs Discussed Condition With Patient, Patients significant other, and RN Problem Qualifiers (1) UTI (urinary tract infection): Qualified Codes: N39.0 - Urinary tract infection, site not specified Lola Gerber Feb 04, 2017 21:27
[2017-02-04] MEDS ORDERED: clonazePAM 0.5 MG TAB PO SCH (22:00)
--- NOTE | 2017-02-04 22:21 | RADRPT ---
EXAM DATE/TIME: 02/04/2017 18:44 [facility] COMPARISON: No previous studies available for comparison. INDICATIONS : Pain. CONTRAST: 10 cc Omniscan (gadodiamide) IV MEDICAL HISTORY : Anemia. SURGICAL HISTORY : section. Hysterectomy. Thoracic laminectomy. ENCOUNTER: Subsequent ACUITY: 1 week PAIN SCORE: 3/10 LOCATION: neck TECHNIQUE: Multiplanar, multisequence MRI examination of the cervical spine was performed. FINDINGS: VERTEBRAE: Normal vertebral body height. Homogeneous marrow signal. ALIGNMENT: No evidence of subluxation. CORD: Normal configuration and signal. POST FOSSA: The cerebellar tonsils are normal in position. POST-CONTRAST: No abnormal areas of enhancement are seen. C2-C3: The thecal sac has a normal configuration. There is no evidence of disc herniation or spinal canal stenosis. The neural foramina are patent bilaterally. C3-C4: The thecal sac has a normal configuration. There is no evidence of disc herniation or spinal canal s tenosis. The neural foramina are patent bilaterally. C4-C5: The thecal sac has a normal configuration. There is no evidence of disc herniation or spinal canal s tenosis. The neural foramina are patent bilaterally. C5-C6: The thecal sac has a normal configuration. There is no evidence of disc herniation or spinal canal s tenosis. The neural foramina are patent bilaterally. C6-C7: The thecal sac has a normal configuration. There is no evidence of disc herniation or spinal canal s tenosis. The neural foramina are patent bilaterally. C7-T1: The thecal sac has a normal configuration. There is no evidence of disc herniation or spinal canal s tenosis. The neural foramina are patent bilaterally. CONCLUSION: Normal examination. Romeo Smith MD on February 04, 2017 at 22:18 Board Certified Radiologist. This report was verified electronically.
--- NOTE | 2017-02-04 22:39 | RADRPT ---
EXAM DATE/TIME: 02/04/2017 18:44 [facility] COMPARISON: MRI THORACIC SPINE W & W/O CONTRAST, November 29, 2016, 7:47. CHEST SINGLE AP, A ugust 2016, 11:48. SPINE THORACIC AP ONLY, January 28, 2017, 12:53. MRI THORACIC SPINE W & W/O C ONTRAST, January 27, 2017, 15:28. INDICATIONS : Pain. Post thoracic laminectomy 01/28/17. CONTRAST: 10 cc Omniscan (gadodiamide) IV MEDICAL HISTORY : Anemia. SURGICAL HISTORY : section. Hysterectomy. Thoracic laminectomy. ENCOUNTER: Subsequent ACUITY: 1 week PAIN SCORE: 8/10 LOCATION: Mid-back. TECHNIQUE: Multiplanar multisequence MRI of the thoracic spine was performed. FINDINGS: Again noted is the posterior epidural fluid collection. This extends from the T10-T11 l evel down to the mid inferior L1 level. This measures at least 8.4 cm in length. There appears to be postoperative change at the posterior elements of T11 and T12. There is evidence of prior laminecto my at these levels. Postoperative changes are seen in the posterior soft tissues in this region. Ther e is peripheral enhancement around the epidural collection. The epidural collection appears similar i n size to questionably slightly smaller. VERTEBRA: The vertebral bodies are intact. They demonstrate normal signal. Again noted is the pos tsurgical change from laminectomies at the T11 and T12 levels. ALIGNMENT: Normal. CORD: Normal position and configuration. T1-T2: Normal. T2-T3: The thecal sac has a normal diameter. No evidence of disc bulge or protrusion. T3-T4: The thecal sac has a normal diameter. No evidence of disc bulge or protrusion. T4-T5: The thecal sac has a normal diameter. No evidence of disc bulge or protrusion. T5-T6: The thecal sac has a normal diameter. No evidence of disc bulge or protrusion. T6-T7: The thecal sac has a normal diameter. No evidence of disc bulge or protrusion. T7-T8: The thecal sac has a normal diameter. No evidence of disc bulge or protrusion. T8-T9: The thecal sac has a normal diameter. No evidence of disc bulge or protrusion. T9-T10: The thecal sac has a normal diameter. No evidence of disc bulge or protrusion. T10-T11: The thecal sac has a normal diameter. No evidence of disc bulge or protrusion. T11-T12: The disc space is intact. No significant impression on the thecal sac is seen from the disc . Again noted is the posterior epidural collection. This causes a moderate impression on the thecal sac with very little CSF seen around the inferior aspect of the cord at this level. This appearance is similar to the prior exam. The neural foramina are grossly intact. The epidural fluid collection does extend along the lateral aspects of the cord. T12-L1: Again noted is the posterior epidural fluid collection. This causes moderate stenosis with very little CSF seen around the conus and nerve roots at this level. The epidural collection extends around the lateral aspects of the thecal sac especially on the right. The disc space is intact. CONCLUSION: Persistent large epidural fluid collection seen posteriorly extending from the T10-T1 1 level down to the mid inferior L1 level. The patient has been treated with a laminectomy at the T1 1 and T12 level. The fluid collection appears similar in size to questionably slightly smaller. It d oes appear more heterogeneous now. This could be from the intervention. There continues to be moder ate stenosis at the T11-T12 and T12-L1 levels secondary to the posterior epidural fluid collection. Romeo Smith MD on February 04, 2017 at 22:19 Board Certified Radiologist. This report was verified electronically.
[2017-02-05 00:45] VITALS: PULSE 77
[2017-02-05 00:53] VITALS: BP 97/53; PULSE 71; RESP 16; O2SAT 100
[2017-02-05 03:19] VITALS: RESP 20
[2017-02-05] MEDS ORDERED: cefTRIAXone INJ 1,000 MG in SODIUM CHLORIDE 0.9% INJ 100 ML IV SCH (18:00)
== END 2017-02-05 04:30 | disposition left against medical advice (07) ==
LOC: NEPE 11:04 → NEDA 18:38 → NEPHCDU 20:52
PROVIDERS: ADMIT Family Medicine; ATTEND Family Medicine
DX: N39.0 Urinary tract infection, site not specified (principal); M54.9 Dorsalgia, unspecified; D72.829 Elevated white blood cell count, unspecified; F11.90 Opioid use, unspecified, uncomplicated
CPT/HCPCS: 96361; 96374; 96375; 96376; 99285; G0378; 71010; 72156; 72157; 72158; 80048; 80307; 81001; 82948; 84703; 85025; 85610; 85730; 87040; 87086; A9579; J0696; J1170; J1200; J1885; J2060; J2405; J3486; J7030

== ENCOUNTER 2017-02-05 10:01 | Inpatient (IN) | payer BC, MEDICAID, OTHER ==
[~2017-02-05] VITALS: Ht 162.6 cm; Wt 60.0 kg
[2017-02-05] VITALS (9 sets, daily range): BP systolic 97–119; BP diastolic 56–62; PULSE 81–96; RESP 15–20; TEMP 97.7–98.6; O2SAT 97–99
--- NOTE | 2017-02-05 11:48 | PD ---
HPI Chief Complaint: Pain: Acute or Chronic Time Seen by Provider: 11:15 Travel History International Travel<30 days: No Contact w/Intl Traveler<30days: No Traveled to known affect area: No History of Present Illness HPI 26-year-old female complains of numbness sensation to the shoulder and increasing numbness in the right lower extremity. Patient has history IV drug abuse, anemia, bipolar disorder and lupus. Patient status post T10- L1 laminectomy January 28 and was discharged February 01. Patient was given prescription for [place] and Bactrim. Patient states that she has been taking the medications as directed. Patient was seen in emergency room yesterday with increasing back pain, numbness sensation right lower extremity, increasing urinary frequency and occasional urinary incontinence, chills and sweats since discharge. Patient had blood tests and MRI of the cervicothoracic and lumbar spine done yesterday. Patient denies any headache. Patient denies any neck pain. Patient denies any chest pain or shortness of breath. Patient denies abdominal pain. Patient denies any nausea vomiting diarrhea. PFSH Past Medical History Anemia: Yes Asthma: Yes Bipolar Disorder: Yes Anxiety: Yes Cardiovascular Problems: Yes (murmur) Diminished Hearing: No Gastrointestinal Disorders: Yes (bm x2 times a month) Genitourinary: Yes (incontinent) Headaches: Yes Immune Disorder: Yes (Lupus) Musculoskeletal: No Neurologic: Yes Psychiatric: Yes (PTSD) Reproductive: No Respiratory: Yes Tetanus Vaccination: Unknown Influenza Vaccination: Yes ?: Not : 8 Para: 4 Miscarriage: 4 Past Surgical History Section: Yes Gynecologic Surgery: Yes (partial Hysterectomy 2014) Hysterectomy: Yes Pacemaker: No Other Surgery: Yes (4 csections hysterectomy) Social History Alcohol Use: No Tobacco Use: Yes (1/2-1PPD) Substance Use: Yes (HEROIN) Allergies-Medications (Allergen,Severity, Reaction): Coded Allergies: codeine (Unverified Allergy, Mild, Itching, 02/05/17) milk (Unverified Adverse Reaction, Mild, Diarrhea, 02/05/17) Reported Meds & Prescriptions Reported Meds & Active Scripts Active Quetiapine (Quetiapine Fumarate) 100 Mg Tab 100 Mg PO HS Klonopin (Clonazepam) 0.5 Mg Tab 0.5 Mg PO Q8HR Hydrocodone-Acetaminophen 10-325 mg Tab 1 Tab PO Q4H PRN Flexeril (Cyclobenzaprine HCl) 10 Mg Tab 10 Mg PO Q8H PRN Sulfamethoxazole-Trimethoprim 800-160 Mg Tab 1 Tab PO Q12HR Walker Rolling/GetGo (Device) 1 Mis Mis Ea .ROUTE DIRECTED Review of Systems General / Constitutional: No: Fever Eyes: No: Visual changes HENT: No: Headaches Cardiovascular: No: Chest Pain or Discomfort Respiratory: No: Shortness of Breath Gastrointestinal: No: Abdominal Pain Genitourinary: Positive: Incontinence, No: Dysuria Musculoskeletal: No: Pain Skin: No Rash Neurologic: Positive: Paresthesia, No: Weakness Psychiatric: No: Depression Endocrine: No: Polydipsia Hematologic/Lymphatic: No: Easy Bruising Physical Exam Narrative GENERAL: Well-nourished, well-developed patient. SKIN: Focused skin assessment warm/dry. HEAD: Normocephalic. EYES: No scleral icterus. No injection or drainage. NECK: Supple, trachea midline. No JVD or lymphadenopathy. CARDIOVASCULAR: Regular rate and rhythm without murmurs, gallops, or rubs. RESPIRATORY: Breath sounds equal bilaterally. No accessory muscle use. GASTROINTESTINAL: Abdomen soft, non-tender, nondistended. MUSCULOSKELETAL: No cyanosis, or edema. BACK: Patient has healing surgical scar low thoracic upper lumbar area with faina in place. The wound clean and dry. No discharge noted. No redness swelling noted. Neurologic exam: Patient awake and alert oriented 3. Patient had mild decrease in light touch sensation left shoulder. Patient has some mild weakness on the right ankle with decreased light touch sensation of the right foot. Data Data Last Documented VS Vital Signs Date Time Temp Pulse Resp B/P (MAP) Pulse Ox O2 Delivery O2 Flow Rate FiO2 02/05/17 13:39 81 16 115/59 (77) 98 02/05/17 11:56 Room Air 02/05/17 10:12 97.7 Orders Orders Electrocardiogram (02/05/17 11:33) Complete Blood Count With Diff (02/05/17 11:33) Comprehensive Metabolic Panel (02/05/17 11:33) Prothrombin Time / Inr (Pt) (02/05/17 11:33) Act Partial Throm Time (Ptt) (02/05/17 11:33) Blood Culture (02/05/17 11:33) Urinalysis - C+S If Indicated (02/05/17 11:33) Iv Access Insert/Monitor (02/05/17 11:33) Ecg Monitoring (02/05/17 11:33) Oximetry (02/05/17 11:33) Sodium Chlor 0.9% 1000 Ml Inj (Ns 1000 M (02/05/17 11:45) Urine Culture (02/05/17 11:50) Ceftriaxone Inj (Rocephin Inj) (02/05/17 12:45) Labs Laboratory Tests Test 02/05/17 11:40 02/05/17 11:50 White Blood Count 10.0 TH/MM3 Red Blood Count 3.90 MIL/MM3 Hemoglobin 11.9 GM/DL Hematocrit 35.1 % Mean Corpuscular Volume 90.1 FL Mean Corpuscular Hemoglobin 30.6 PG Mean Corpuscular Hemoglobin Concent 34.0 % Red Cell Distribution Width 13.7 % Platelet Count 353 TH/MM3 Mean Platelet Volume 8.0 FL Neutrophils (%) (Auto) 74.0 % Lymphocytes (%) (Auto) 17.1 % Monocytes (%) (Auto) 6.0 % Eosinophils (%) (Auto) 2.2 % Basophils (%) (Auto) 0.7 % Neutrophils # (Auto) 7.4 TH/MM3 Lymphocytes # (Auto) 1.7 TH/MM3 Monocytes # (Auto) 0.6 TH/MM3 Eosinophils # (Auto) 0.2 TH/MM3 Basophils # (Auto) 0.1 TH/MM3 CBC Comment DIFF FINAL Differential Comment Prothrombin Time 11.0 SEC Prothromb Time International Ratio 1.0 RATIO Activated Partial Thromboplast Time 29.6 SEC Blood Urea Nitrogen 16 MG/DL Creatinine 0.58 MG/DL Random Glucose 85 MG/DL Total Protein 6.9 GM/DL Albumin 3.3 GM/DL Calcium Level 8.4 MG/DL Alkaline Phosphatase 51 U/L Aspartate Amino Transf (AST/SGOT) 15 U/L Alanine Aminotransferase (ALT/SGPT) 12 U/L Total Bilirubin 0.3 MG/DL Sodium Level 138 MEQ/L Potassium Level 3.8 MEQ/L Chloride Level 105 MEQ/L Carbon Dioxide Level 24.1 MEQ/L Anion Gap 9 MEQ/L Estimat Glomerular Filtration Rate 125 ML/MIN Urine Color YELLOW Urine Turbidity HAZY Urine pH 6.0 Urine Specific [place] 1.034 Urine Protein TRACE mg/dL Urine Glucose (UA) NEG mg/dL Urine Ketones NEG mg/dL Urine Occult Blood SMALL Urine Nitrite NEG Urine Bilirubin NEG Urine Urobilinogen 2.0 MG/DL Urine Leukocyte Esterase LARGE Urine RBC 24 /hpf Urine WBC 38 /hpf Urine Squamous Epithelial Cells 4 /hpf Urine Bacteria OCC /hpf Urine Mucus FEW /lpf Microscopic Urinalysis Comment CULTURE INDICATED MDM Medical Decision Making Medical Screen Exam Complete: Yes Emergency Medical Condition: Yes Interpretation(s) 12:43 PM. CBC within normal limit. CMP within normal limits. UA positive WBC or RBC and bacteria. Differential Diagnosis Differential diagnosis including hematoma, abscess, neuropathy. Narrative Course 26-year-old female with increasing numbness bilateral shoulder and increasing weakness on the right lower extremity after laminectomy recently. Normal saline solution 1 25 cc an hour. Rocephin 1 g IV. I spoke with Dr. Whitt. Dr. Whitt reviewed MRI done yesterday. Dr. Whitt advised no neurosurgical intervention. Advised IV antibiotic for UTI. Diagnosis Primary Impression: UTI (urinary tract infection) Qualified Codes: N30.00 - Acute cystitis without hematuria Additional Impression: Status post laminectomy Admitting Information Admitting Physician Requests: Admit Lewis Patterson MD Feb 05, 2017 11:48
[2017-02-05] MEDS: SODIUM CHLOR 0.9% 1000 ML INJ 1,000 ML IV SCH ×3 (11:54→22:03)
[2017-02-05 11:56] LABS: AUTOMATED NEUTROPHIL # 7.4 TH/MM3 (1.8-7.7); BASOPHIL # 0.1 TH/MM3 (0-0.2); BASOPHIL % 0.7 % (0.0-2.0); EOSINOPHIL # 0.2 TH/MM3 (0-0.4); EOSINOPHIL % 2.2 % (0.0-4.0); HEMATOCRIT 35.1 % (35.0-46.0); HEMO FLAGS DIFF FINAL; LYMPH % 17.1 % (9.0-44.0); LYMPHOCYTE # 1.7 TH/MM3 (1.0-4.8); MEAN CELL VOLUME 90.1 FL (80.0-100.0); MEAN CORPUSCULAR HEMOGLOBIN 30.6 PG (27.0-34.0); PLATELET COUNT 353 TH/MM3 (150-450); RED CELL DISTRIBUTION WIDTH 13.7 % (11.6-17.2)
[2017-02-05 12:04] LABS: APTT (PATIENT) 29.6 SEC (24.3-30.1)
[2017-02-05 12:10] LABS: ALT (GPT) 12 U/L (10-53); ANION GAP 9 MEQ/L (5-15); AST (GOT) 15 U/L (15-37); BICARBONATE 24.1 MEQ/L (21.0-32.0); BLOOD UREA NITROGEN 16 MG/DL (7-18); CHLORIDE 105 MEQ/L (98-107); GLOMERULAR FILTRATION RATE 125 ML/MIN (>89); POTASSIUM 3.8 MEQ/L (3.5-5.1); SODIUM (NA) 138 MEQ/L (136-145)
[2017-02-05 12:12] LABS: ALKALINE PHOSPHATASE 51 U/L (45-117); TOTAL BILIRUBIN ADULT 0.3 MG/DL (0.2-1.0)
[2017-02-05 12:13] LABS: BACTERIA, URINE OCC /hpf; BLOOD, URINE SMALL (NEG); COMMENT (UR) CULTURE INDICATED; CULTURE IF INDICATED CULTURE INDICATED; GLUCOSE,URINE NEG (NEG); KETONE, URINE NEG (NEG); MUCUS URINE FEW /lpf (OCC); NITRITE,URINE NEG (NEG); SQUAMOUS EPITHELIAL CELL URINE 4 /hpf (0-5); URINE COLOR YELLOW (YELLW/STRAW)
[2017-02-05] MEDS ORDERED: cefTRIAXone INJ 1,000 MG in SODIUM CHLORIDE 0.9% INJ 100 ML IV ONE (12:45)
[2017-02-05] MEDS ORDERED: ACETAMINOPHEN 325 MG TAB PO PRN ×3 (14:30→15:00)
[2017-02-05] MEDS ORDERED: SODIUM CHLORIDE 0.9% FLUSH 10 ML FLUSH IVF PRN (14:30)
[2017-02-05] MEDS ORDERED: AZITHROMYCIN PWD FOR SUSP 1 GM PACKET PO ONE (14:30)
--- NOTE | 2017-02-05 14:47 | HHI.HP ---
[facility] Service [facility] Primary Care Physician Unknown Admission Diagnosis UTI. Status post laminectomy. Diagnoses: (1) Status post laminectomy Diagnosis: Secondary (2) UTI (urinary tract infection) Diagnosis: Principal (3) Leukocytosis Diagnosis: Principal (4) Spinal stenosis Diagnosis: Secondary (5) Adjustment disorder with mixed anxiety and depressed mood Diagnosis: Secondary (6) Bipolar disorder Diagnosis: Secondary (7) Left against medical advice Diagnosis: Secondary (8) IVDU (intravenous drug user) Diagnosis: Principal Chief Complaint: ACUTE ON CHRONIC PAIN Travel History International Travel<30 Days: No Contact w/Intl Traveler <30 Da: No Traveled to Known Affected Are: No History of Present Illness 26-year-old female complains of numbness sensation to the shoulder and increasing numbness in the right lower extremity. Patient has history IV drug abuse, anemia, bipolar disorder and lupus. Patient status post T10- L1 laminectomy January 28 and was discharged February 01. Patient was given prescription for [place] and Bactrim. Patient states that she has been taking the medications as directed. Patient was seen in emergency room yesterday with increasing back pain, numbness sensation right lower extremity, increasing urinary frequency and occasional urinary incontinence, chills and sweats since discharge. Patient had blood tests and MRI of the cervicothoracic and lumbar spine done yesterday. Patient denies any headache. Patient denies any neck pain. Patient denies any chest pain or shortness of breath. Patient denies abdominal pain. Patient denies any nausea vomiting diarrhea. MRIs were reviewed by neurosurgery. They do not feel to nurse surgical issue. They recommended treatment of her urinary tract infection aggressively so that there is no more issues with her spine Patient states she is currently homeless. Has not eaten. I asked her why she left AGAINST MEDICAL ADVICE she states she has anxiety issues I said she could stay here and eat and not be totally homeless while she is being treated. I recommended that she stay in the hospital. Review of Systems Constitutional: COMPLAINS OF: Fatigue, Change in appetite, DENIES: Diaphoretic episodes, Fever, Weight gain, Weight loss, Chills, Dizziness Endocrine: DENIES: Abnorml menstrual pattern, Heat/cold intolerance, Polydipsia Eyes: DENIES: Blurred vision, Diplopia, Eye inflammation, Eye pain, Vision loss , Photosensitivity Ears, nose, mouth, throat: DENIES: Tinnitus, Hearing loss, Vertigo, Nasal discharge Respiratory: DENIES: Apneas, Cough, Snoring, Wheezing, Hemoptysis, Sputum production Cardiovascular: DENIES: Chest pain, Palpitations, Syncope, Dyspnea on Exertion , PND, Lower Extremity Edema Gastrointestinal: DENIES: Abdominal pain, Black stools, Bloody stools, Constipation, Diarrhea Genitourinary: COMPLAINS OF: Urinary frequency, Urinary incontinence, Urgency, DENIES: Abnormal vaginal bleeding Musculoskeletal: COMPLAINS OF: Joint pain, Back pain, DENIES: Muscle aches, Stiffness, Joint Swelling Integumentary: DENIES: Abnormal pigmentation, Pruritus, Rash, Nail changes Hematologic/lymphatic: DENIES: Bruising, Lymphadenopathy Immunologic/allergic: DENIES: Eczema, Urticaria Neurologic: COMPLAINS OF: Localized weakness, DENIES: Abnormal gait, Headache, Paresthesias, Seizures, Speech Problems Psychiatric: COMPLAINS OF: Anxiety, Mood changes, Depression, Agitation, DENIES : Confusion, Hallucinations Past Family Social History Past Medical History Anemia Asthma Bipolar Anxiety Incontinence Headaches Lupus PTSD 8 para 4 miscarriages 4 Past Surgical History sections Partial hysterectomy in 2014 Back surgery Reported Medications Reported Meds & Active Scripts Active Quetiapine (Quetiapine Fumarate) 100 Mg Tab 100 Mg PO HS Klonopin (Clonazepam) 0.5 Mg Tab 0.5 Mg PO Q8HR Hydrocodone-Acetaminophen 10-325 mg Tab 1 Tab PO Q4H PRN Flexeril (Cyclobenzaprine HCl) 10 Mg Tab 10 Mg PO Q8H PRN Sulfamethoxazole-Trimethoprim 800-160 Mg Tab 1 Tab PO Q12HR Walker Rolling/GetGo (Device) 1 Mis Mis Ea .ROUTE DIRECTED Allergies: Coded Allergies: codeine (Unverified Allergy, Mild, Itching, 02/05/17) milk (Unverified Adverse Reaction, Mild, Diarrhea, 02/05/17) Active Ordered Medications Current Medications Sodium Chloride 1,000 ml @ 125 mls/hr Q8H IV Last administered on 02/05/17t 11 :54; Start 02/05/17 at 11:45 Ceftriaxone Sodium 1000 mg/ Sodium Chloride 100 ml @ 200 mls/hr ONCE ONCE IV Last administered on 02/05/17t 13:01; Start 02/05/17 at 12:45; Stop 02/05/17 at 13:14; Status DC Ondansetron HCl (Zofran Inj) 4 mg Q6H PRN IV NAUSEA OR VOMITING; Start at 14:30 Acetaminophen (Tylenol) 650 mg Q4H PRN PO Temp>101F, Headache; Start 02/05/17 at 14:30 Sodium Chloride (NS Flush) 2 ml BID IV FLUSH ; Start 02/05/17 at 21:00 Sodium Chloride (NS Flush) 2 ml UNSCH PRN IVF FLUSH AFTER USING IV ACCESS; Start 02/05/17 at 14:30 Azithromycin (Zithromax Powd Pack) 1 gm ONCE ONCE PO ; Start 02/05/17 at 14:30 ; Stop 02/05/17 at 14:31; Status DC Family History Tobacco abuse and psychiatric disorders Social History Smokes tobacco Does crack Shoots up IV heroin Abuses any drug she can get a hold of Uses alcohol on occasion Physical Exam Vital Signs Vital Signs Date Time Temp Pulse Resp B/P (MAP) Pulse Ox O2 Delivery O2 Flow Rate FiO2 02/05/17 13:39 81 16 115/59 (77) 98 02/05/17 11:56 97 Room Air 02/05/17 10:12 97.7 84 15 118/56 (76) 99 Physical Exam GENERAL: This is a well-nourished, well-developed patient, in no apparent distress. SKIN: No rashes, ecchymoses or lesions. Cool and dry. HEAD: Atraumatic. Normocephalic. No temporal or scalp tenderness. EYES: Pupils equal round and reactive. Extraocular motions intact. No scleral icterus. No injection or drainage. ENT: Nose without bleeding, purulent drainage or septal hematoma. Throat without erythema, tonsillar hypertrophy or exudate. Uvula midline. Airway patent. Tongue is midline NECK: Trachea midline. No JVD or lymphadenopathy. Supple, nontender, no meningeal signs. CARDIOVASCULAR: Regular rate and rhythm without murmurs, gallops, or rubs. S1- S2 no S3 or S4 no thrill RESPIRATORY: Clear to auscultation. Breath sounds equal bilaterally. No wheezes , rales, or rhonchi. GASTROINTESTINAL: Abdomen soft, non-tender, nondistended. No hepato-splenomegaly , or palpable masses. No guarding. MUSCULOSKELETAL: Extremities without clubbing, cyanosis, or edema. No joint tenderness, effusion, or edema noted. No calf tenderness. Negative Homans sign bilaterally. NEUROLOGICAL: Awake and alert. Cranial nerves II through XII intact. Motor and sensory grossly within normal limits. Five out of 5 muscle strength in all muscle groups. Normal speech. Has mild DEcrease IN light touch sensation left shoulder. Patient has some mild weakness on the right ankle with decreased light touch sensation of the right foot Insight and judgment is poor mood and behavior is inappropriate Surgical scar lower thoracic upper lumbar area with faina in place wound is clean and dry no discharge Laboratory Laboratory Tests Test 02/05/17 11:40 02/05/17 11:50 White Blood Count 10.0 Red Blood Count 3.90 Hemoglobin 11.9 Hematocrit 35.1 Mean Corpuscular Volume 90.1 Mean Corpuscular Hemoglobin 30.6 Mean Corpuscular Hemoglobin Concent 34.0 Red Cell Distribution Width 13.7 Platelet Count 353 Mean Platelet Volume 8.0 Neutrophils (%) (Auto) 74.0 Lymphocytes (%) (Auto) 17.1 Monocytes (%) (Auto) 6.0 Eosinophils (%) (Auto) 2.2 Basophils (%) (Auto) 0.7 Neutrophils # (Auto) 7.4 Lymphocytes # (Auto) 1.7 Monocytes # (Auto) 0.6 Eosinophils # (Auto) 0.2 Basophils # (Auto) 0.1 CBC Comment DIFF FINAL Differential Comment Prothrombin Time 11.0 Prothromb Time International Ratio 1.0 Activated Partial Thromboplast Time 29.6 Blood Urea Nitrogen 16 Creatinine 0.58 Random Glucose 85 Total Protein 6.9 Albumin 3.3 Calcium Level 8.4 Alkaline Phosphatase 51 Aspartate Amino Transf (AST/SGOT) 15 Alanine Aminotransferase (ALT/SGPT) 12 Total Bilirubin 0.3 Sodium Level 138 Potassium Level 3.8 Chloride Level 105 Carbon Dioxide Level 24.1 Anion Gap 9 Estimat Glomerular Filtration Rate 125 Urine Color YELLOW Urine Turbidity HAZY Urine pH 6.0 Urine Specific [place] 1.034 Urine Protein TRACE Urine Glucose (UA) NEG Urine Ketones NEG Urine Occult Blood SMALL Urine Nitrite NEG Urine Bilirubin NEG Urine Urobilinogen 2.0 Urine Leukocyte Esterase LARGE Urine RBC 24 Urine WBC 38 Urine Squamous Epithelial Cells 4 Urine Bacteria OCC Urine Mucus FEW Microscopic Urinalysis Comment CULTURE INDICATED Date/Time Source Procedure Growth Status 02/05/17 11:45 Blood Peripheral Aerobic Blood Culture Pending Received 02/05/17 11:45 Blood Peripheral Anaerobic Blood Culture Pending Received 02/05/17 11:50 Urine Clean Catch Urine Culture Pending Received Result Diagram: 02/05/17 1140 02/05/17 1140 Caprini VTE Risk Assessment Caprini VTE Risk Assessment: Mod/High Risk (score >= 2) Caprini Risk Assessment Model Point Value = 1 Point Value = 2 Point Value = 3 Point Value = 5 Age 41-60 Minor surgery BMI > 25 kg/m2 Swollen legs Varicose veins or History of unexplained or recurrent spontaneous Oral contraceptives or hormone replacement Sepsis (< 1 month) Serious lung disease, including pneumonia (< 1 month) Abnormal pulmonary function Acute myocardial infarction Congestive heart failure (< 1 month) History of inflammatory bowel disease Medical patient at bed rest Age 61-74 Arthroscopic surgery Major open surgery (> 45 min) Laparoscopic surgery (> 45 min) Malignancy Confined to bed (> 72 hours) Immobilizing plaster cast Central venous access Age >= 75 History of VTE Family history of VTE Factor V Leiden Prothrombin [id number] Lupus anticoagulant Anticardiolipin antibodies Elevated serum homocysteine Heparin-induced thrombocytopenia Other congenital or acquired thrombophilia Stroke (< 1 month) Elective arthroplasty Hip, pelvis, or leg fracture Acute spinal cord injury (< 1 month) Prophylaxis Regimen Total Risk Factor Score Risk Level Prophylaxis Regimen 0-1 Low Early ambulation 2 Moderate Order ONE of the following: *Sequential Compression Device (SCD) *Heparin 5000 units SQ BID 3-4 Higher Order ONE of the following medications: *Heparin 5000 units SQ TID *Enoxaparin/Lovenox 40 mg SQ daily (WT < 150 kg, CrCl > 30 mL/min) *Enoxaparin/Lovenox 30 mg SQ daily (WT < 150 kg, CrCl > 10-29 mL/min) *Enoxaparin/Lovenox 30 mg SQ BID (WT < 150 kg, CrCl > 30 mL/min) AND/OR *Sequential Compression Device (SCD) 5 or more Highest Order ONE of the following medications: *Heparin 5000 units SQ TID (Preferred with Epidurals) *Enoxaparin/Lovenox 40 mg SQ daily (WT < 150 kg, CrCl > 30 mL/min) *Enoxaparin/Lovenox 30 mg SQ daily (WT < 150 kg, CrCl > 10-29 mL/min) *Enoxaparin/Lovenox 30 mg SQ BID (WT < 150 kg, CrCl > 30 mL/min) AND *Sequential Compression Device (SCD) Assessment and Plan Problem List: (1) IVDU (intravenous drug user) ICD Code: F19.90 - Other psychoactive substance use, unspecified, uncomplicated (2) Status post laminectomy ICD Code: Z98.890 - Other specified postprocedural states Status: Acute (3) Left against medical advice ICD Code: Z53.20 - Procedure and treatment not carried out because of patient' s decision for unspecified reasons Status: Acute (4) Adjustment disorder with mixed anxiety and depressed mood ICD Code: F43.23 - Adjustment disorder with mixed anxiety and depressed mood (5) Spinal stenosis ICD Code: M48.00 - Spinal stenosis, site unspecified (6) Leukocytosis ICD Code: D72.829 - Elevated white blood cell count, unspecified Status: Acute (7) Bipolar disorder ICD Code: F31.9 - Bipolar disorder, unspecified (8) UTI (urinary tract infection) ICD Code: N39.0 - Urinary tract infection, site not specified Status: Acute Assessment and Plan Has had bilateral shoulder increasing weakness the right lower extremity after laminectomy. Patient has had MRIs reviewed by -no surgical intervention Recommended treatment of her urinary tract infection with IV antibiotics Status post recent laminectomy continue current care Homeless consult case management Bipolar continue to monitor IV drug abuse await signs of withdrawals Illicit drug abuse monitor for signs of withdrawal [facility] protocol Oral pain medications Discussed with patient and RN Patient left AGAINST MEDICAL ADVICE yesterday have instructed her not to do that again today Physician Certification 2 Midnight Certification Type: Admission for Inpatient Services Order for Inpatient Services The services are ordered in accordance with Medicare regulations or non- Medicare payer requirements, as applicable. In the case of services not specified as inpatient-only, they are appropriately provided as inpatient services in accordance with the 2-midnight benchmark. Estimated LOS (days): 3 3 days is the estimated time the patient will need to remain in the hospital, assuming treatment plan goals are met and no additional complications. Post-Hospital Plan: Not yet determined Problem Qualifiers (1) UTI (urinary tract infection): Qualified Codes: N30.00 - Acute cystitis without hematuria Anjum Albarado DO Feb 05, 2017 14:47
[2017-02-05] MEDS ORDERED: ONDANSETRON HCL 4 MG/2 ML VIAL IVP PRN (15:00)
[2017-02-05] MEDS ORDERED: PROCHLORPERAZINE 25 MG SUPP RECTAL PRN (15:00)
[2017-02-05] MEDS ORDERED: MORPHINE SULFATE 4 MG/ML INJ IV PRN (15:00)
[2017-02-05] MEDS ORDERED: NALOXONE HCL 0.4 MG/ML AMP IV PRN (15:00)
[2017-02-05] MEDS ORDERED: HALOPERIDOL LACTATE 5 MG/ML AMP IM PRN (15:00)
[2017-02-05] MEDS ORDERED: SENNOSIDES 8.6 MG TAB PO PRN (15:00)
[2017-02-05] MEDS ORDERED: BISACODYL 10 MG SUPP RECTAL PRN (15:00)
[2017-02-05] MEDS ORDERED: MAGNESIUM HYDROXIDE SUSP 30 ML CUP PO PRN (15:00)
[2017-02-05] MEDS ORDERED: LORazepam 2 MG/ML VIAL IV PUSH PRN ×4 (15:00)
[2017-02-05] MEDS ORDERED: LORazepam 1 MG TAB PO PRN (15:00)
[2017-02-05] MEDS ORDERED: SODIUM CHLORIDE 0.9% FLUSH 10 ML FLUSH IV FLUSH PRN ×2 (15:00)
[2017-02-05] MEDS ORDERED: FLUMAZENIL 0.5 MG/5 ML VIAL IV PUSH PRN (15:00)
[2017-02-05] MEDS ORDERED: ONDANSETRON HCL 4 MG/2 ML VIAL IV PRN (15:00)
[2017-02-05] MEDS ORDERED: ACETAMINOPHEN/HYDROcodone 325 MG/5 MG TAB PO PRN (15:00)
[2017-02-05] MEDS ORDERED: LORazepam 2 MG TAB PO PRN (15:00)
[2017-02-05] MEDS ORDERED: LACTULOSE SYRUP 20 GM/30 ML CUP PO PRN (15:00)
[2017-02-05] MEDS ORDERED: cloNIDine HCL 0.1 MG TAB PO PRN (15:00)
[2017-02-05] MEDS ORDERED: CYCLOBENZAPRINE HCL 10 MG TAB PO PRN (15:00)
[2017-02-05] MEDS: FOLIC ACID 1 MG TAB PO SCH (15:56)
[2017-02-05] MEDS: MULTIVITAMINS/MINERALS THERAPEUTIC TAB PO SCH (17:00)
[2017-02-05] MEDS: THIAMINE HCL 100 MG TAB PO SCH (17:00)
[2017-02-05] MEDS: REMOVE OLD PATCH T-DERMAL SCH (17:00)
[2017-02-05] MEDS ORDERED: NICOTINE 14 MG/24 HR PATCH T-DERMAL ONE (17:00)
[2017-02-05] MEDS: PANTOPRAZOLE SOD 40 MG DELAYED RELEASE TAB PO SCH (17:00)
[2017-02-05] MEDS: ACETAMINOPHEN/HYDROcodone 325 MG/10 MG TAB PO PRN (18:45)
[2017-02-05] MEDS: HEPARIN SODIUM - SQ 10,000 UNITS/ML VIAL SQ SCH (18:49)
[2017-02-05] MEDS: SULFAMETHOXAZOLE-TRIMETHOPRIM DS 800-160 MG TAB PO SCH (18:49)
[2017-02-05] MEDS: ONDANSETRON HCL 4 MG/2 ML VIAL IV PRN (18:50)
[2017-02-05] MEDS: SODIUM CHLORIDE 0.9% FLUSH 10 ML FLUSH IV FLUSH SCH ×2 (21:00→22:03)
[2017-02-05] MEDS ORDERED: SODIUM CHLORIDE 0.9% FLUSH 10 ML FLUSH IV FLUSH SCH (21:00)
[2017-02-05] MEDS ORDERED: MORPHINE SULFATE 4 MG/ML INJ IV PUSH ONE (21:00)
[2017-02-05] MEDS: DOCUSATE SODIUM 50 MG/SENNA 8.6 MG TAB PO SCH (21:55)
[2017-02-05] MEDS: QUEtiapine FUMARATE 100 MG TAB PO SCH (21:55)
[2017-02-05 23:14] LABS: MAGNESIUM 2.3 MG/DL (1.5-2.5)
[2017-02-05 23:17] LABS: ALCOHOL LESS THAN 3 MG/DL (0-5)
[2017-02-06] VITALS (8 sets, daily range): BP systolic 85–113; BP diastolic 50–58; PULSE 79–91; RESP 16–18; TEMP 98.2–99.3; O2SAT 98–100
[2017-02-06] MEDS: SODIUM CHLOR 0.9% 1000 ML INJ 1,000 ML IV SCH ×5 (00:47→19:45)
[2017-02-06] MEDS: MORPHINE SULFATE 4 MG/ML INJ IV PRN ×5 (02:32→21:31)
[2017-02-06] MEDS: HEPARIN SODIUM - SQ 10,000 UNITS/ML VIAL SQ SCH ×3 (02:33→18:05)
[2017-02-06] MEDS: SULFAMETHOXAZOLE-TRIMETHOPRIM DS 800-160 MG TAB PO SCH ×2 (05:45→18:05)
[2017-02-06] MEDS: SODIUM CHLORIDE 0.9% FLUSH 10 ML FLUSH IV FLUSH SCH ×4 (07:38→21:29)
[2017-02-06] MEDS: NICOTINE 14 MG/24 HR PATCH T-DERMAL SCH (08:09)
[2017-02-06] MEDS: PANTOPRAZOLE SOD 40 MG DELAYED RELEASE TAB PO SCH (08:10)
[2017-02-06] MEDS: DOCUSATE SODIUM 50 MG/SENNA 8.6 MG TAB PO SCH ×2 (08:10→21:11)
[2017-02-06] MEDS: MULTIVITAMINS/MINERALS THERAPEUTIC TAB PO SCH (08:10)
[2017-02-06] MEDS: FOLIC ACID 1 MG TAB PO SCH (08:10)
[2017-02-06] MEDS: THIAMINE HCL 100 MG TAB PO SCH (08:10)
[2017-02-06] MEDS: REMOVE OLD PATCH T-DERMAL SCH (08:11)
[2017-02-06] MEDS: ONDANSETRON HCL 4 MG/2 ML VIAL IV PRN (08:16)
[2017-02-06 09:48] LABS: AUTOMATED NEUTROPHIL # 4.8 TH/MM3 (1.8-7.7); BASOPHIL # 0.1 TH/MM3 (0-0.2); BASOPHIL % 0.9 % (0.0-2.0); EOSINOPHIL # 0.1 TH/MM3 (0-0.4); EOSINOPHIL % 1.8 % (0.0-4.0); HEMATOCRIT 32.7 % (35.0-46.0); HEMO FLAGS DIFF FINAL; LYMPH % 27.8 % (9.0-44.0); LYMPHOCYTE # 2.2 TH/MM3 (1.0-4.8); MEAN CELL VOLUME 91.5 FL (80.0-100.0); MEAN CORPUSCULAR HEMOGLOBIN 29.9 PG (27.0-34.0); MEAN CORPUSCULAR HGB CONC 32.7 % (32.0-36.0); NEUT % 61.5 % (16.0-70.0); PLATELET COUNT 299 TH/MM3 (150-450); RED BLOOD COUNT 3.57 MIL/MM3 (4.00-5.30); RED CELL DISTRIBUTION WIDTH 13.8 % (11.6-17.2); WHITE BLOOD COUNT 7.7 TH/MM3 (4.0-11.0)
[2017-02-06 10:14] LABS: ALKALINE PHOSPHATASE 42 U/L (45-117); ALT (GPT) 9 U/L (10-53); ANION GAP 7 MEQ/L (5-15); AST (GOT) 10 U/L (15-37); BICARBONATE 25.4 MEQ/L (21.0-32.0); BLOOD UREA NITROGEN 10 MG/DL (7-18); CHLORIDE 111 MEQ/L (98-107); GLOMERULAR FILTRATION RATE 135 ML/MIN (>89); POTASSIUM 3.8 MEQ/L (3.5-5.1); SODIUM (NA) 143 MEQ/L (136-145); TOTAL BILIRUBIN ADULT LESS THAN 0.1 MG/DL (0.2-1.0)
[2017-02-06] MEDS ORDERED: cefTRIAXone INJ 2,000 MG in SODIUM CHLORIDE 0.9% INJ 100 ML IV SCH (12:00)
[2017-02-06] MEDS: ACETAMINOPHEN/HYDROcodone 325 MG/10 MG TAB PO PRN (15:25)
--- NOTE | 2017-02-06 17:06 | EKG ---
Date Performed: 02/05/2017 Time Performed: 11:59:14 PTAGE: 26 years EKG: Sinus rhythm Since previous tracing, no significant change noted NORMAL ECG PREVIOUS TRACING : 01/28/2017 08.19 DOCTOR: Mayda Saucedo Interpretating Date/Time 02/06/2017 17:02:26
--- NOTE | 2017-02-06 17:16 | HHI.PR ---
Subjective Remarks Follow up for acute on chronic back pain, UTI. Patient reports no fever, chills. However, she reports persistent back pain as well as parenthesis Objective Vitals Vital Signs Date Time Temp Pulse Resp B/P (MAP) Pulse Ox O2 Delivery O2 Flow Rate FiO2 02/06/17 16:32 99.3 91 16 113/58 (76) 99 02/06/17 11:44 98.5 86 16 95/53 (67) 98 02/06/17 08:55 98.5 88 18 85/50 (62) 100 02/06/17 08:41 99 21 02/06/17 08:17 83 02/06/17 05:47 84 02/06/17 02:59 98.5 84 18 97/55 (69) 98 02/05/17 23:30 97.9 83 18 115/56 (75) 97 02/05/17 20:00 98 02/05/17 19:51 98.2 89 20 107/59 (75) 98 02/05/17 18:05 98.6 96 18 97/56 (70) 99 02/05/17 17:53 81 16 116/57 (76) 98 I/O 02/05/17 02/05/17 02/05/17 02/06/17 02/06/17 02/06/17 07:00 15:00 23:00 07:00 15:00 23:00 Intake Total 100 ml Balance 100 ml Intake IV Total 100 ml # Voids 1 1 Result Diagram: 02/06/17 0819 02/06/17 0819 A/P Problem List: (1) IVDU (intravenous drug user) ICD Code: F19.90 - Other psychoactive substance use, unspecified, uncomplicated (2) Status post laminectomy ICD Code: Z98.890 - Other specified postprocedural states Status: Acute (3) Left against medical advice ICD Code: Z53.20 - Procedure and treatment not carried out because of patient' s decision for unspecified reasons Status: Acute (4) Adjustment disorder with mixed anxiety and depressed mood ICD Code: F43.23 - Adjustment disorder with mixed anxiety and depressed mood (5) Spinal stenosis ICD Code: M48.00 - Spinal stenosis, site unspecified (6) Leukocytosis ICD Code: D72.829 - Elevated white blood cell count, unspecified Status: Acute (7) Bipolar disorder ICD Code: F31.9 - Bipolar disorder, unspecified (8) UTI (urinary tract infection) ICD Code: N39.0 - Urinary tract infection, site not specified Status: Acute Assessment and Plan Ms. Quinonez is a 26 year old female with a history of IVDU and recent history of laminectomy who presented to the ED on 02/04/2017 due to numbness of the shoulders and increasing numbness of the right lower ext. She also reported increased urinary frequency. - Thoracolumbar spinal stenosis - s/p Laminectomy of T10, 11, 12 and L1 and arachnoid cyst removal. - Incision area looks clean, dry. - MRI cervical, lumbar, thoracic done on 02/04/2017 - showed fluid collection in T10-L1 area. - per H&P, Dr. Whitt (Neurosurgery) reviewed the images and indicated no surgical intervention. - continue [place] for pain. Flexeril for muscle spasm. - Probable UTI - Patient is currently on Ceftriaxone 2g Qday. - Patient was continued on Bactrim. - Wait for the urine culture and sensitivity. - Other - Continue Seroquel, folic acid, thiamine. Full code. Heparin SQ. Problem Qualifiers (1) UTI (urinary tract infection): Qualified Codes: N30.00 - Acute cystitis without hematuria Birgit Ramsey DO Feb 06, 2017 17:15
[2017-02-06] MEDS: QUEtiapine FUMARATE 100 MG TAB PO SCH (21:11)
[2017-02-07] VITALS: BP 80/42; PULSE 76; RESP 18; TEMP 98.1; O2SAT 97
[2017-02-07] MEDS: HEPARIN SODIUM - SQ 10,000 UNITS/ML VIAL SQ SCH (02:00)
[2017-02-07 02:52] VITALS: O2SAT 97
[2017-02-07] MEDS: SODIUM CHLOR 0.9% 1000 ML INJ 1,000 ML IV SCH (03:45)
[2017-02-07] MEDS: SULFAMETHOXAZOLE-TRIMETHOPRIM DS 800-160 MG TAB PO SCH (06:00)
[2017-02-07 08:00] VITALS: BP 97/56; PULSE 70; RESP 20; TEMP 98.6; O2SAT 100
[2017-02-07] MEDS: PANTOPRAZOLE SOD 40 MG DELAYED RELEASE TAB PO SCH (10:02)
[2017-02-07] MEDS: NICOTINE 14 MG/24 HR PATCH T-DERMAL SCH (10:02)
[2017-02-07] MEDS: MULTIVITAMINS/MINERALS THERAPEUTIC TAB PO SCH (10:02)
[2017-02-07] MEDS: DOCUSATE SODIUM 50 MG/SENNA 8.6 MG TAB PO SCH (10:03)
[2017-02-07] MEDS: THIAMINE HCL 100 MG TAB PO SCH (10:03)
[2017-02-07] MEDS: FOLIC ACID 1 MG TAB PO SCH (10:03)
[2017-02-07] MEDS ORDERED: GNP100TA3 PO (10:54)
[2017-02-07] MEDS ORDERED: FOLI1TAB6 PO (10:54)
--- NOTE | 2017-02-07 11:02 | HHI.DS ---
Discharge Summary Admission Date Feb 05, 2017 at 14:17 Discharge Date: Feb 07, 2017 Admitting Diagnosis UTI. Status post laminectomy. (1) IVDU (intravenous drug user) ICD Code: F19.90 - Other psychoactive substance use, unspecified, uncomplicated (2) Status post laminectomy ICD Code: Z98.890 - Other specified postprocedural states Status: Acute (3) Left against medical advice ICD Code: Z53.20 - Procedure and treatment not carried out because of patient' s decision for unspecified reasons Status: Acute (4) Adjustment disorder with mixed anxiety and depressed mood ICD Code: F43.23 - Adjustment disorder with mixed anxiety and depressed mood (5) Spinal stenosis ICD Code: M48.00 - Spinal stenosis, site unspecified (6) Leukocytosis ICD Code: D72.829 - Elevated white blood cell count, unspecified Status: Acute (7) Bipolar disorder ICD Code: F31.9 - Bipolar disorder, unspecified (8) UTI (urinary tract infection) ICD Code: N39.0 - Urinary tract infection, site not specified Status: Acute Procedures None. Brief History - From Admission 26-year-old female complains of numbness sensation to the shoulder and increasing numbness in the right lower extremity. Patient has history IV drug abuse, anemia, bipolar disorder and lupus. Patient status post T10- L1 laminectomy January 28 and was discharged February 01. Patient was given prescription for Huntington and Bactrim. Patient states that she has been taking the medications as directed. Patient was seen in emergency room yesterday with increasing back pain, numbness sensation right lower extremity, increasing urinary frequency and occasional urinary incontinence, chills and sweats since discharge. Patient had blood tests and MRI of the cervicothoracic and lumbar spine done yesterday. Patient denies any headache. Patient denies any neck pain. Patient denies any chest pain or shortness of breath. Patient denies abdominal pain. Patient denies any nausea vomiting diarrhea. MRIs were reviewed by neurosurgery. They do not feel to nurse surgical issue. They recommended treatment of her urinary tract infection aggressively so that there is no more issues with her spine Patient states she is currently homeless. Has not eaten. I asked her why she left AGAINST MEDICAL ADVICE she states she has anxiety issues I said she could stay here and eat and not be totally homeless while she is being treated. I recommended that she stay in the hospital. CBC/BMP: 02/06/17 0819 02/06/17 0819 Significant Findings Laboratory Tests Test 02/05/17 11:40 02/05/17 11:50 02/06/17 08:19 Red Blood Count 3.90 MIL/MM3 (4.00-5.30) 3.57 MIL/MM3 (4.00-5.30) Neutrophils (%) (Auto) 74.0 % (16.0-70.0) Albumin 3.3 GM/DL (3.4-5.0) 2.6 GM/DL (3.4-5.0) Calcium Level 8.4 MG/DL (8.5-10.1) 7.6 MG/DL (8.5-10.1) Urine Turbidity HAZY (CLEAR) Urine Occult Blood SMALL (NEG) Urine Leukocyte Esterase LARGE (NEG) Urine RBC 24 /hpf (0-3) Urine WBC 38 /hpf (0-5) Urine Bacteria OCC /hpf (NONE) Urine Mucus FEW /lpf (OCC) Urine Opiates Screen POS (NEG) Urine Cocaine Screen POS (NEG) Hemoglobin 10.7 GM/DL (11.6-15.3) Hematocrit 32.7 % (35.0-46.0) Total Protein 5.7 GM/DL (6.4-8.2) Alkaline Phosphatase 42 U/L (45-117) Aspartate Amino Transf (AST/SGOT) 10 U/L (15-37) Alanine Aminotransferase (ALT/SGPT) 9 U/L (10-53) Total Bilirubin LESS THAN 0.1 MG/DL Chloride Level 111 MEQ/L (98-107) PE at Discharge Patient is upset that she is being discharged. She is not in any acute distress. When I entered the room, she appeared to be very comfortable. No signs of pain at all. A physical exam was done yesterday but not today due to patient being upset. Pt update on day of discharge Follow up for acute on chronic back pain, UTI. Patient was resting well in bed without any sign of pain whatsoever as I entered the room. Earlier, she only wanted IV morphine. She did not want to take oral narcotics. I explained that we cannot send her home with IV pain medications. At this point, patient becomes agitated. I again discussed that neurosurgeon has already reviewed her images and no surgical intervention offered at this point. Patient is already on Bactrim which will cover UTI as well. At this point, I feel that there is nothing else to offer in the hospital setting that cannot be done at home. Patient herself stated yesterday that she wanted to go home today. However, when I mentioned discharge, she became more agitated and used foul language. An attempt to converse with her was not possible. Hospital Course Ms. Quinonez is a 26 year old female with a history of IVDU and recent history of laminectomy who presented to the ED on 02/04/2017 due to numbness of the shoulders and increasing numbness of the right lower ext. She also reported increased urinary frequency. - Thoracolumbar spinal stenosis - s/p Laminectomy of T10, 11, 12 and L1 and arachnoid cyst removal. - Incision area looks clean, dry. - MRI cervical, lumbar, thoracic done on 02/04/2017 - showed fluid collection in T10-L1 area. - per H&P, Dr. Whitt (Neurosurgery) reviewed the images and indicated no surgical intervention. - continue Huntington for pain. Flexeril for muscle spasm. - Patient has norco at home. - Probable UTI - Patient is currently on Ceftriaxone 2g Qday. Ceftriaxone discontinued since patient is already on Bactrim. - Patient was continued on Bactrim that was given in the previous admission. - Urine cx did not show any significant infection. - Other - Continue Seroquel, folic acid, thiamine. Pt Condition on Discharge: Good Discharge Disposition: Discharge Home Discharge Time: <= 30 minutes Discharge Instructions DIET: Follow Instructions for: As Tolerated, No Restrictions Activities you can perform: Regular-No Restrictions Follow up Referrals: PCP Follow-up - 1 Week New Medications: Folic Acid (Folic Acid) 1 Mg Tablet 1 MG PO DAILY for Vitamin, #30 TAB Thiamine HCl (Gnp Vitamin B-1) 100 Mg Tab 100 MG PO DAILY for Vitamin, #30 TAB Continued Medications: Clonazepam (Klonopin) 0.5 Mg Tab 0.5 MG PO Q8HR for Control Anxiety, #30 TAB Cyclobenzaprine (Flexeril) 10 Mg Tab 10 MG PO Q8H PRN for MUSCLE SPASM, #30 TAB Hydrocodone-Acetaminophen (Hydrocodone-Acetaminophen) 10-325 mg Tab 1 TAB PO Q4H PRN for PAIN SCALE 1 TO 5, #30 TAB Quetiapine (Quetiapine) 100 Mg Tab 100 MG PO HS for Control Anxiety, #30 TAB Sulfamethoxazole-Trimethoprim (Sulfamethoxazole-Trimethoprim) 800-160 Mg Tab 1 TAB PO Q12HR for Infection, #14 TAB Birgit Ramsey DO Feb 07, 2017 11:02
== END 2017-02-07 11:30 | disposition home or self-care (01) | DRG 690 ==
LOC: NEPE 10:01 → NEDA 14:17 → NEPGCP 18:42 → N05B 02-06 22:18
PROVIDERS: ADMIT Hospitalist; ATTEND Hospitalist
DX: N39.0 Urinary tract infection, site not specified (principal); M32.9 Systemic lupus erythematosus, unspecified; F43.23 Adjustment disorder with mixed anxiety and depressed mood; F43.10 Post-traumatic stress disorder, unspecified; F11.10 Opioid abuse, uncomplicated; F17.200 Nicotine dependence, unspecified, uncomplicated; F14.10 Cocaine abuse, uncomplicated; F31.9 Bipolar disorder, unspecified; Z59.0 Homelessness; Z88.5 Allergy status to narcotic agent; Z91.011 Allergy to milk products; Z98.890 Other specified postprocedural states; M54.9 Dorsalgia, unspecified
CPT/HCPCS: 71010; 72156; 72157; 72158; 76937; 80048; 80053; 80307; 81001; 82948; 83735; 84100; 84703; 85025; 85610; 85730; 87040; 87086; 93005; 96361; 96365; 96374; 96375; 96376; A9579; G0378; J0696; J1170; J1200; J1644; J1885; J2060; J2270; J2405; J3486; J7030

== ENCOUNTER 2017-02-15 14:47 | Emergency (ER) | payer BC, MEDICAID, OTHER ==
[~2017-02-15 14:47] MED LIST changes: +FOLI1TAB6 PO; +GNP100TA3 PO
[2017-02-15] MEDS ORDERED: GADODIAMIDE PF 287 MG/ML 10 ML VIAL (for RAD MRI) IV PUSH ONE (14:48)
[2017-02-15 14:52] VITALS: BP 110/68; PULSE 108; RESP 17; TEMP 98.4; O2SAT 99
--- NOTE | 2017-02-15 15:58 | PD ---
HPI Chief Complaint: Back/ Neck Pain or Injury Time Seen by Provider: 15:13 Travel History International Travel<30 days: No Contact w/Intl Traveler<30days: No Traveled to known affect area: No History of Present Illness HPI The patient was seen and examined in the presence of the nurse. At no point in time was I and the room without the nurse present. This patient complains of back pain. She has history of chronic back pain but states that for the last one week she was free of back pain until this morning when she developed pain just above her incision. She denies injury or fall. No documented fever although she complains of chills. Her last IV drug injection was yesterday. She was supposed to go yesterday to get her faina removed but she skipped that appointment. She has chronic right leg weakness. This is unchanged from usual. Symptoms severity is moderate. Duration one day. No alleviating factors PFSH Past Medical History Anemia: Yes Asthma: Yes Bipolar Disorder: Yes Anxiety: Yes Cardiovascular Problems: Yes (murmur) Diminished Hearing: No Gastrointestinal Disorders: Yes (bm x2 times a month) Genitourinary: Yes (incontinent) Headaches: Yes Immune Disorder: Yes (Lupus) Musculoskeletal: No Neurologic: Yes Psychiatric: Yes (PTSD) Reproductive: No Respiratory: Yes Tetanus Vaccination: < 5 Years Influenza Vaccination: Yes ?: Not : 8 Para: 4 Miscarriage: 4 Past Surgical History Section: Yes Gynecologic Surgery: Yes (partial Hysterectomy 2014) Hysterectomy: Yes Pacemaker: No Other Surgery: Yes (4 csections hysterectomy) Social History Alcohol Use: No Tobacco Use: Yes (1/2-1PPD) Substance Use: Yes (HEROIN-IV DRUG USER - LAST USE 2 DAYS AGO ) Allergies-Medications (Allergen,Severity, Reaction): Coded Allergies: codeine (Unverified Allergy, Mild, Itching, 02/15/17) milk (Unverified Adverse Reaction, Mild, Diarrhea, 02/15/17) Reported Meds & Prescriptions Reported Meds & Active Scripts Active Gnp Vitamin B-1 (Thiamine HCl) 100 Mg Tab 100 Mg PO DAILY Folic Acid 1 Mg Tablet 1 Mg PO DAILY Quetiapine (Quetiapine Fumarate) 100 Mg Tab 100 Mg PO HS Klonopin (Clonazepam) 0.5 Mg Tab 0.5 Mg PO Q8HR Hydrocodone-Acetaminophen 10-325 mg Tab 1 Tab PO Q4H PRN Review of Systems General / Constitutional: Positive: Chills Eyes: No: Visual changes HENT: No: Headaches Cardiovascular: Positive: Tachycardia, No: Chest Pain or Discomfort Respiratory: No: Shortness of Breath Gastrointestinal: No: Abdominal Pain Genitourinary: No: Dysuria Musculoskeletal: Positive: Weakness, Pain Skin: No Rash Neurologic: Positive: Weakness Psychiatric: Positive: Substance Abuse, No: Depression Endocrine: No: Polydipsia Hematologic/Lymphatic: No: Easy Bruising Physical Exam Narrative GENERAL: Well-nourished, well-developed patient complaining of back pain. SKIN: Focused skin assessment reveals no rash and nodules. Skin is Warm and dry. HEAD: Atraumatic. Normocephalic. EYES: Pupils equal and round. No scleral icterus. No injection or drainage. ENT: No nasal bleeding or discharge. Mucous membranes pink and moist. NECK: Trachea midline. No JVD. No midline tenderness of the neck. No bruising or swelling. CARDIOVASCULAR: Regular rate and rhythm. No murmur appreciated. RESPIRATORY: No accessory muscle use. Clear to auscultation. Breath sounds equal bilaterally. GASTROINTESTINAL: Abdomen soft, non-tender, nondistended. Hepatic and splenic margins not palpable. MUSCULOSKELETAL: No obvious deformities. No clubbing. No cyanosis. No edema. Examination the back shows that she has a stapled incision. No dehiscence. Is challenging to get a good exam because any light touch of the back and she is yelling and jerking away. There is no distinct point tenderness in the midline alone but any palpation of the spine and she is reacting strongly. NEUROLOGICAL: Awake and alert. No obvious cranial nerve deficits. Motor exam shows that there is right leg weakness. Left leg strength is full. Normal speech. PSYCHIATRIC: Appropriate mood and affect; insight and judgment poor Data Data Last Documented VS Vital Signs Date Time Temp Pulse Resp B/P (MAP) Pulse Ox O2 Delivery O2 Flow Rate FiO2 02/15/17 14:52 98.4 108 17 110/68 (82) 99 Orders Orders Blood Culture (02/15/17 15:59) Iv Access Insert/Monitor (02/15/17 15:59) Complete Blood Count With Diff (02/15/17 15:59) Comprehensive Metabolic Panel (02/15/17 15:59) Ed Urine Pregnancytest Poc (02/15/17 15:59) Mri T Spine W & W/O Contrast (02/15/17 ) Mri L Spine W&W/O Contrast (02/15/17 ) Ondansetron Inj (Zofran Inj) (02/15/17 16:30) Morphine Inj (Morphine Inj) (02/15/17 16:30) Lorazepam Inj (Ativan Inj) (02/15/17 16:30) Labs Laboratory Tests Test 02/15/17 15:30 White Blood Count 13.2 TH/MM3 Red Blood Count 4.15 MIL/MM3 Hemoglobin 12.5 GM/DL Hematocrit 37.2 % Mean Corpuscular Volume 89.6 FL Mean Corpuscular Hemoglobin 30.1 PG Mean Corpuscular Hemoglobin Concent 33.6 % Red Cell Distribution Width 13.7 % Platelet Count 371 TH/MM3 Mean Platelet Volume 8.5 FL Neutrophils (%) (Auto) 80.0 % Lymphocytes (%) (Auto) 11.0 % Monocytes (%) (Auto) 7.3 % Eosinophils (%) (Auto) 1.1 % Basophils (%) (Auto) 0.6 % Neutrophils # (Auto) 10.6 TH/MM3 Lymphocytes # (Auto) 1.4 TH/MM3 Monocytes # (Auto) 1.0 TH/MM3 Eosinophils # (Auto) 0.1 TH/MM3 Basophils # (Auto) 0.1 TH/MM3 CBC Comment DIFF FINAL Differential Comment MDM Medical Decision Making Medical Screen Exam Complete: Yes Emergency Medical Condition: Yes Medical Record Reviewed: Yes Differential Diagnosis Epidural abscess, postsurgical pain, malingering Narrative Course I have reviewed the patient's electronic medical record. She is a frequent visitor to the ER. She's been here 9 times this year. She was recently hospitalized and had spinal surgery 2 weeks ago. It looks like 3 of those last nine visits she left AMA. She has poor compliance. Patient has poor IV access I placed a right external jugular IV 20-gauge without complication I've ordered lab studies and blood cultures Will order MRI of T and L-spine to evaluate her current situation. It's impossible to know if there is anything dangerous going on by examination and history Case checked out to Dr. Smith to assist with disposition Scott Randolph MD Feb 15, 2017 15:58
[2017-02-15 16:17] LABS: AUTOMATED NEUTROPHIL # 10.6 TH/MM3 (1.8-7.7); BASOPHIL # 0.1 TH/MM3 (0-0.2); BASOPHIL % 0.6 % (0.0-2.0); EOSINOPHIL # 0.1 TH/MM3 (0-0.4); EOSINOPHIL % 1.1 % (0.0-4.0); HEMATOCRIT 37.2 % (35.0-46.0); HEMO FLAGS DIFF FINAL; LYMPHOCYTE # 1.4 TH/MM3 (1.0-4.8); MEAN CELL VOLUME 89.6 FL (80.0-100.0); MEAN CORPUSCULAR HEMOGLOBIN 30.1 PG (27.0-34.0); MEAN CORPUSCULAR HGB CONC 33.6 % (32.0-36.0); MONO % 7.3 % (0.0-8.0); PLATELET COUNT 371 TH/MM3 (150-450); RED BLOOD COUNT 4.15 MIL/MM3 (4.00-5.30); RED CELL DISTRIBUTION WIDTH 13.7 % (11.6-17.2); WHITE BLOOD COUNT 13.2 TH/MM3 (4.0-11.0)
[2017-02-15] MEDS ORDERED: ONDANSETRON HCL 4 MG/2 ML VIAL IV ONE (16:30)
[2017-02-15] MEDS ORDERED: MORPHINE SULFATE 4 MG/ML INJ IV PUSH ONE (16:30)
[2017-02-15] MEDS ORDERED: LORazepam 2 MG/ML VIAL IV PUSH ONE (16:30)
[2017-02-15 16:36] VITALS: BP 101/57; PULSE 81; RESP 18; O2SAT 100
[2017-02-15 16:36] LABS: ALKALINE PHOSPHATASE 62 U/L (45-117); TOTAL BILIRUBIN ADULT 0.6 MG/DL (0.2-1.0)
[2017-02-15 16:41] VITALS: BP 91/64; PULSE 84; RESP 18; O2SAT 99
[2017-02-15 16:50] LABS: ALT (GPT) 13 U/L (10-53); ANION GAP 9 MEQ/L (5-15); AST (GOT) 16 U/L (15-37); BICARBONATE 23.4 MEQ/L (21.0-32.0); BLOOD UREA NITROGEN 16 MG/DL (7-18); CHLORIDE 103 MEQ/L (98-107); GLOMERULAR FILTRATION RATE 102 ML/MIN (>89); POTASSIUM 3.4 MEQ/L (3.5-5.1); SODIUM (NA) 135 MEQ/L (136-145)
--- NOTE | 2017-02-15 18:04 | RADRPT ---
EXAM DATE/TIME: 02/15/2017 16:49 [facility] COMPARISON: No previous studies available for comparison. INDICATIONS : Abscess. CONTRAST: 10 cc Omniscan (gadodiamide) IV MEDICAL HISTORY : None. SURGICAL HISTORY : Hysterectomy. Discectomy, thoracic. section. ENCOUNTER: Initial ACUITY: 1 day PAIN SCORE: 7/10 LOCATION: [facility] TECHNIQUE: Multiplanar multisequence MRI of the thoracic spine was performed. FINDINGS: A crescentic, rim enhancing epidural fluid collection in the lower thoracic spinal canal extending ac ross the thoracolumbar junction has clearly decreased in size. AP diameter has decreased from about 1 8 mm to 10 mm and length has decreased from about 8.4 cm to 4.8 cm. Currently there is no compression on the conus. There is overlying soft tissue swelling and edema again noted with stable changes of l aminectomy. No new fluid collections are present. No disc protrusions. Normal alignment of the thoracic spine. There is persistent edema and enhancement in the soft tissues overlying the lower thoracic spine with stable laminectomies. CONCLUSION: 1. Decrease in size of rim-enhancing crescentic fluid collection in the epidural region of the lower thoracic spine and extending slightly across the thoracolumbar junction with measurements given above . Jamil Stoddard MD on February 15, 2017 at 17:56 Board Certified Radiologist. This report was verified electronically.
--- NOTE | 2017-02-15 18:09 | RADRPT ---
EXAM DATE/TIME: 02/15/2017 16:49 [facility] COMPARISON: No previous studies available for comparison. INDICATIONS : Abscess. CONTRAST: 10 cc Omniscan (gadodiamide) IV MEDICAL HISTORY : None. SURGICAL HISTORY : Discectomy, cervical. section. Hysterectomy. ENCOUNTER: Initial ACUITY: 1 day PAIN SCORE: 7/10 LOCATION: [facility] TECHNIQUE: Multiplanar multisequence MRI of the lumbar spine was performed with and without contrast. FINDINGS: The epidural fluid collection in the lower thoracic spine extending into the upper lumbar spine at L1 has decreased in size with measurements given on the thoracic spine MRI report. Edematous changes in the soft tissues dorsally remain with a slight increase in subcutaneous edema in the upper lumbar re gion. Normal alignment of the lumbar spine. No disc protrusions. No significant compression on the conus me dullaris. CONCLUSION: 1. Decreasing epidural fluid collection across the thoracolumbar junction with measurements given on the thoracic spine MRI report. No significant compression on the conus medullaris. Overlying soft tis agustin edema and swelling is slightly increased in the upper lumbar region. Normal alignment of the lumb ar spine. Jamil Stoddard MD on February 15, 2017 at 18:02 Board Certified Radiologist. This report was verified electronically.
--- NOTE | 2017-02-15 18:30 | PD ---
Data Data Last Documented VS Vital Signs Date Time Temp Pulse Resp B/P (MAP) Pulse Ox O2 Delivery O2 Flow Rate FiO2 02/15/17 16:41 84 18 91/64 (73) 99 Room Air 02/15/17 14:52 98.4 Orders Orders Blood Culture (02/15/17 15:59) Iv Access Insert/Monitor (02/15/17 15:59) Complete Blood Count With Diff (02/15/17 15:59) Comprehensive Metabolic Panel (02/15/17 15:59) Ed Urine Pregnancytest Poc (02/15/17 15:59) Mri T Spine W & W/O Contrast (02/15/17 ) Mri L Spine W&W/O Contrast (02/15/17 ) Ondansetron Inj (Zofran Inj) (02/15/17 16:30) Morphine Inj (Morphine Inj) (02/15/17 16:30) Lorazepam Inj (Ativan Inj) (02/15/17 16:30) Gadodiamide Pf Inj (Omniscan Pf Inj) (02/15/17 14:48) Labs Laboratory Tests Test 02/15/17 15:30 White Blood Count 13.2 TH/MM3 Red Blood Count 4.15 MIL/MM3 Hemoglobin 12.5 GM/DL Hematocrit 37.2 % Mean Corpuscular Volume 89.6 FL Mean Corpuscular Hemoglobin 30.1 PG Mean Corpuscular Hemoglobin Concent 33.6 % Red Cell Distribution Width 13.7 % Platelet Count 371 TH/MM3 Mean Platelet Volume 8.5 FL Neutrophils (%) (Auto) 80.0 % Lymphocytes (%) (Auto) 11.0 % Monocytes (%) (Auto) 7.3 % Eosinophils (%) (Auto) 1.1 % Basophils (%) (Auto) 0.6 % Neutrophils # (Auto) 10.6 TH/MM3 Lymphocytes # (Auto) 1.4 TH/MM3 Monocytes # (Auto) 1.0 TH/MM3 Eosinophils # (Auto) 0.1 TH/MM3 Basophils # (Auto) 0.1 TH/MM3 CBC Comment DIFF FINAL Differential Comment Blood Urea Nitrogen 16 MG/DL Creatinine 0.69 MG/DL Random Glucose 96 MG/DL Total Protein 7.7 GM/DL Albumin 3.6 GM/DL Calcium Level 8.7 MG/DL Alkaline Phosphatase 62 U/L Aspartate Amino Transf (AST/SGOT) 16 U/L Alanine Aminotransferase (ALT/SGPT) 13 U/L Total Bilirubin 0.6 MG/DL Sodium Level 135 MEQ/L Potassium Level 3.4 MEQ/L Chloride Level 103 MEQ/L Carbon Dioxide Level 23.4 MEQ/L Anion Gap 9 MEQ/L Estimat Glomerular Filtration Rate 102 ML/MIN [facility] Supervised Visit with JIMMY: No Interpretation(s) LABS: CBC is remarkable for mild leukocytosis. CMP is unremarkable. T-spine MRI: Decrease in size of her maintaining [place] to fluid collection epidural region of the lower thoracic spine exiting slightly across the thoracolumbar junction. L-spine MRI: Decreasing epidural fluid collection with size As noted. No significant compression. Some overlying soft tissue edema. Normal alignment. Narrative Course 26 year-old woman, history of drug use, recent surgery for thoracolumbar oh arachnoid cyst. Some concern for residual for collection. Here again for back pain. MRI shows decreasing size and residual collection. Recommend outpatient follow-up. Diagnosis Primary Impression: Back pain Additional Instruction: Follow-up with her primary doctor. Return to the emergency department for any new or worsening symptoms. Med/Other Pt SpecificInfo: No Change to Meds Disposition: 01 DISCHARGE HOME Condition: Stable Kalyan Smith MD Feb 15, 2017 18:30
[2017-02-15] MEDS ORDERED: HYDR-3533 PO (18:32)
== END 2017-02-15 19:01 | disposition home or self-care (01) ==
LOC: NEPD 14:47
DX: M54.9 Dorsalgia, unspecified (principal); G89.29 Other chronic pain; F17.200 Nicotine dependence, unspecified, uncomplicated
CPT/HCPCS: 72157; 72158; 80053; 85025; 87040; 96374; 96375; 99285; A9579; J2060; J2270; J2405

== ENCOUNTER 2017-02-19 12:54 | Emergency (ER) | payer BC, MEDICAID, OTHER ==
[~2017-02-19 12:54] MED LIST changes: -CYCL1TAB29 PO; -GETGO ROLLING W1 MI1; +HYDR-3533 PO; -SULF1TAB23 PO
[2017-02-19 12:56] VITALS: BP 120/82; PULSE 93; RESP 17; TEMP 100.9; O2SAT 98
[2017-02-19] MEDS ORDERED: IBUPROFEN 800 MG TAB PO ONE ×2 (13:45→14:15)
[2017-02-19] MEDS ORDERED: SODIUM CHLOR 0.9% 1000 ML INJ 800 ML IV ONE (14:01)
[2017-02-19] MEDS ORDERED: SODIUM CHLOR 0.9% 1000 ML INJ 1,000 ML IV ONE (14:01)
[2017-02-19 14:33] VITALS: BP 109/68; PULSE 94; RESP 22; TEMP 100.1; O2SAT 99
[2017-02-19 14:34] VITALS: BP 109/68; PULSE 94; RESP 22; TEMP 100.1; O2SAT 100
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
[2017-02-19 15:13] LABS: AUTOMATED NEUTROPHIL # 8.6 TH/MM3 (1.8-7.7); BASOPHIL # 0.1 TH/MM3 (0-0.2); BASOPHIL % 0.5 % (0.0-2.0); EOSINOPHIL % 0.3 % (0.0-4.0); HEMATOCRIT 38.8 % (35.0-46.0); HEMO FLAGS DIFF FINAL; LYMPHOCYTE # 1.7 TH/MM3 (1.0-4.8); MEAN CELL VOLUME 89.2 FL (80.0-100.0); MEAN CORPUSCULAR HEMOGLOBIN 29.5 PG (27.0-34.0); MEAN CORPUSCULAR HGB CONC 33.1 % (32.0-36.0); MONO % 7.1 % (0.0-8.0); NEUT % 77.1 % (16.0-70.0); PLATELET COUNT 329 TH/MM3 (150-450); RED BLOOD COUNT 4.35 MIL/MM3 (4.00-5.30); RED CELL DISTRIBUTION WIDTH 13.9 % (11.6-17.2); WHITE BLOOD COUNT 11.2 TH/MM3 (4.0-11.0)
[2017-02-19 15:18] LABS: BACTERIA, URINE MANY /hpf; BLOOD, URINE TRACE (NEG); GLUCOSE,URINE NEG (NEG); KETONE, URINE 150 mg/dL (NEG); MUCUS URINE MANY /lpf (OCC); NITRITE,URINE NEG (NEG); SQUAMOUS EPITHELIAL CELL URINE 44 /hpf (0-5); URINE COLOR DARK-YELLOW (YELLW/STRAW)
[2017-02-19 15:20] LABS: COMMENT (UR) CATH-CULTURE IND; CULTURE IF INDICATED CATH CULTURE IND
[2017-02-19] MEDS ORDERED: LORazepam 2 MG/ML VIAL IV PUSH ONE (15:30)
[2017-02-19] MEDS ORDERED: cefTRIAXone INJ 2,000 MG in SODIUM CHLORIDE 0.9% INJ 100 ML IV ONE (15:30)
[2017-02-19 15:40] LABS: ALKALINE PHOSPHATASE 69 U/L (45-117); TOTAL BILIRUBIN ADULT 0.6 MG/DL (0.2-1.0)
[2017-02-19 15:44] VITALS: BP 101/59; PULSE 88; RESP 18; TEMP 98.9; O2SAT 98
[2017-02-19 15:50] LABS: ALT (GPT) 11 U/L (10-53); AST (GOT) 17 U/L (15-37); BLOOD UREA NITROGEN 8 MG/DL (7-18); GLOMERULAR FILTRATION RATE 99 ML/MIN (>89); SODIUM (NA) 137 MEQ/L (136-145)
[2017-02-19 15:51] LABS: ANION GAP 11 MEQ/L (5-15); BICARBONATE 26.3 MEQ/L (21.0-32.0); CHLORIDE 100 MEQ/L (98-107); POTASSIUM 3.5 MEQ/L (3.5-5.1)
[2017-02-19] MEDS ORDERED: CEPH-460 PO (16:31)
[2017-02-19] MEDS ORDERED: LORazepam 0.5 MG TAB PO ONE (17:30)
[2017-02-19 18:42] VITALS: BP 121/70; PULSE 95; RESP 18; O2SAT 100
[2017-02-19] MEDS: CEPHALEXIN MONOHYDRATE 500 MG CAP PO SCH ×2 (21:00→22:00)
[2017-02-19] MEDS: MUPIROCIN 2% OINT 22 GM TUBE TOPICAL SCH (21:00)
[2017-02-20 02:27] VITALS: BP 103/56; PULSE 99; RESP 16; O2SAT 100
[2017-02-20] MEDS: MUPIROCIN 2% OINT 22 GM TUBE TOPICAL SCH ×2 (09:00→10:33)
[2017-02-20] MEDS: CEPHALEXIN MONOHYDRATE 500 MG CAP PO SCH ×2 (09:00→10:33)
[2017-02-20 11:15] VITALS: BP 115/67; PULSE 96; RESP 18; O2SAT 98
[2017-02-20 11:17] VITALS: BP 116/55; PULSE 78; RESP 17; O2SAT 97
== END 2017-02-20 18:50 ==
LOC: NEPD 12:54 → NEPJ 02-20 18:50
DX: F32.9 Major depressive disorder, single episode, unspecified (principal); R45.851 Suicidal ideations; F19.90 Other psychoactive substance use, unspecified, uncomplicated; N39.0 Urinary tract infection, site not specified; R31.9 Hematuria, unspecified; J02.9 Acute pharyngitis, unspecified
CPT/HCPCS: 80053; 80307; 81001; 83605; 85025; 87040; 87081; 87086; 87880; 96361; 96374; 96375; 99285; J0696; J2060; J7030

== ENCOUNTER 2017-03-20 00:38 | Emergency (ER) | payer BC, MEDICAID ==
[~2017-03-20] VITALS: Ht 160 cm; Wt 54.5 kg
[2017-03-20 00:46] VITALS: BP 102/92; PULSE 87; RESP 12; TEMP 97.8; O2SAT 98
--- NOTE | 2017-03-20 01:17 | PD ---
HPI Chief Complaint: OD/ Ingestion Time Seen by Provider: 01:11 Travel History International Travel<30 days: No Contact w/Intl Traveler<30days: No Traveled to known affect area: No History of Present Illness HPI The patient is a 27-year-old female, IV drug abuser, that states she shot up heroin about an hour ago, around 12 midnight. She states she feels nauseated. She has been using both forearms to shoot up. She denies any fever. She states she has had right sided endocarditis in the past. PFSH Past Medical History Anemia: Yes Asthma: Yes Bipolar Disorder: Yes Anxiety: Yes Cardiovascular Problems: Yes (murmur) Diminished Hearing: No Gastrointestinal Disorders: Yes (bm x2 times a month) Genitourinary: Yes (incontinent) Headaches: Yes Immune Disorder: Yes (Lupus) Musculoskeletal: No Neurologic: Yes Psychiatric: Yes (PTSD, bipolar, multiple personality) Reproductive: No Respiratory: Yes Tetanus Vaccination: < 5 Years Influenza Vaccination: Yes ?: Not : 8 Para: 4 Miscarriage: 4 Past Surgical History Section: Yes Gynecologic Surgery: Yes (partial Hysterectomy 2014) Hysterectomy: Yes (partial) Pacemaker: No Other Surgery: Yes (4 csections hysterectomy) Social History Alcohol Use: No Tobacco Use: Yes (1/2-1PPD) Substance Use: Yes (IV drug use) Allergies-Medications (Allergen,Severity, Reaction): Coded Allergies: codeine (Unverified Allergy, Mild, Itching, 03/20/17) milk (Unverified Adverse Reaction, Mild, Diarrhea, 03/20/17) Reported Meds & Prescriptions Reported Meds & Active Scripts Active Gnp Vitamin B-1 (Thiamine HCl) 100 Mg Tab 100 Mg PO DAILY Folic Acid 1 Mg Tablet 1 Mg PO DAILY Quetiapine (Quetiapine Fumarate) 100 Mg Tab 100 Mg PO HS Klonopin (Clonazepam) 0.5 Mg Tab 0.5 Mg PO Q8HR Review of Systems Except as stated in HPI: all other systems reviewed are Neg Physical Exam Narrative GENERAL: The patient is alert, oriented 3 in no apparent distress. She answers questions quickly appropriately. SKIN: Focused skin assessment warm/dry. Needle tracks are present in both forearms which are recent. There is some erythema around some which may represent only a foreign body reaction, no definite cellulitis is seen and no abscess is seen. HEAD: Atraumatic. Normocephalic. EYES: Pupils equal and round. No scleral icterus. No injection or drainage. ENT: No nasal bleeding or discharge. Mucous membranes pink and moist. NECK: Trachea midline. No JVD. CARDIOVASCULAR: Regular rate and rhythm. No murmur appreciated. RESPIRATORY: No accessory muscle use. Clear to auscultation. Breath sounds equal bilaterally. GASTROINTESTINAL: Abdomen soft, non-tender, nondistended. Hepatic and splenic margins not palpable. MUSCULOSKELETAL: No obvious deformities. No clubbing. No cyanosis. No edema. NEUROLOGICAL: Awake and alert. No obvious cranial nerve deficits. Motor grossly within normal limits. Minimally slurred speech. PSYCHIATRIC: Appropriate mood and affect; insight and judgment normal. Data Data Last Documented VS Vital Signs Date Time Temp Pulse Resp B/P (MAP) Pulse Ox O2 Delivery O2 Flow Rate FiO2 03/20/17 02:22 80 16 107/62 (77) 99 Room Air 03/20/17 00:46 97.8 Orders Orders Ondansetron Inj (Zofran Inj) (03/20/17 01:30) Sodium Chlor 0.9% 1000 Ml Inj (Ns 1000 M (03/20/17 01:30) Complete Blood Count With Diff (03/20/17 01:21) Comprehensive Metabolic Panel (03/20/17 01:21) Labs Laboratory Tests Test 03/20/17 01:25 White Blood Count 8.7 TH/MM3 Red Blood Count 4.03 MIL/MM3 Hemoglobin 12.0 GM/DL Hematocrit 35.3 % Mean Corpuscular Volume 87.7 FL Mean Corpuscular Hemoglobin 29.8 PG Mean Corpuscular Hemoglobin Concent 34.0 % Red Cell Distribution Width 14.4 % Platelet Count 256 TH/MM3 Mean Platelet Volume 8.7 FL Neutrophils (%) (Auto) 68.3 % Lymphocytes (%) (Auto) 24.6 % Monocytes (%) (Auto) 4.8 % Eosinophils (%) (Auto) 1.3 % Basophils (%) (Auto) 1.0 % Neutrophils # (Auto) 6.0 TH/MM3 Lymphocytes # (Auto) 2.1 TH/MM3 Monocytes # (Auto) 0.4 TH/MM3 Eosinophils # (Auto) 0.1 TH/MM3 Basophils # (Auto) 0.1 TH/MM3 CBC Comment DIFF FINAL Differential Comment Blood Urea Nitrogen 13 MG/DL Creatinine 0.51 MG/DL Random Glucose 84 MG/DL Total Protein 6.9 GM/DL Albumin 3.4 GM/DL Calcium Level 8.5 MG/DL Alkaline Phosphatase 54 U/L Aspartate Amino Transf (AST/SGOT) 21 U/L Alanine Aminotransferase (ALT/SGPT) 25 U/L Total Bilirubin 0.3 MG/DL Sodium Level 139 MEQ/L Potassium Level 3.6 MEQ/L Chloride Level 106 MEQ/L Carbon Dioxide Level 26.9 MEQ/L Anion Gap 6 MEQ/L Estimat Glomerular Filtration Rate 144 ML/MIN MDM Medical Decision Making Medical Screen Exam Complete: Yes Emergency Medical Condition: Yes Medical Record Reviewed: Yes Interpretation(s) The CBC is normal. The complete metabolic profile is normal. Differential Diagnosis Dehydration, electrolyte imbalance, renal insufficiency, right sided endocarditis-unlikely, anemia, needle track infection/abscess Narrative Course There is no evidence either on laboratory or clinically of right sided endocarditis. The patient has no evidence of infection. She does have minimal inflammation at needle injection sites without any abscess and this is likely a reaction to substances cut with the heroin. She will be given prochlorperazine for nausea and she will follow up with [facility] to get off of the drugs. Additional Instructions: As I think you intend to do, follow-up with [facility] to get off these drugs. Getting off the drugs as the most important thing you can do for yourself. The nausea medicine as one tablet every 6 hours as you need it. Med/Other Pt SpecificInfo: Prescription(s) given Scripts Prochlorperazine Maleate (Prochlorperazine Maleate) 10 Mg Tab 10 MG PO Q6H Y for NAUSEA OR VOMITING, #30 TAB 0 Refills Prov: Song Cespedes MD 03/20/17 Disposition: 01 DISCHARGE HOME Condition: Stable Song Cespedes MD Mar 20, 2017 01:16
[2017-03-20] MEDS: SODIUM CHLOR 0.9% 1000 ML INJ 1,000 ML IV SCH ×2 (01:24→02:00)
[2017-03-20] MEDS ORDERED: ONDANSETRON HCL 4 MG/2 ML VIAL IV ONE (01:30)
[2017-03-20 01:34] LABS: BASOPHIL # 0.1 TH/MM3 (0-0.2); EOSINOPHIL # 0.1 TH/MM3 (0-0.4); EOSINOPHIL % 1.3 % (0.0-4.0); HEMATOCRIT 35.3 % (35.0-46.0); HEMO FLAGS DIFF FINAL; LYMPH % 24.6 % (9.0-44.0); LYMPHOCYTE # 2.1 TH/MM3 (1.0-4.8); MEAN CELL VOLUME 87.7 FL (80.0-100.0); MEAN CORPUSCULAR HEMOGLOBIN 29.8 PG (27.0-34.0); MONO % 4.8 % (0.0-8.0); NEUT % 68.3 % (16.0-70.0); PLATELET COUNT 256 TH/MM3 (150-450); RED BLOOD COUNT 4.03 MIL/MM3 (4.00-5.30); RED CELL DISTRIBUTION WIDTH 14.4 % (11.6-17.2); WHITE BLOOD COUNT 8.7 TH/MM3 (4.0-11.0)
[2017-03-20 01:54] LABS: CHLORIDE 106 MEQ/L (98-107); POTASSIUM 3.6 MEQ/L (3.5-5.1); SODIUM (NA) 139 MEQ/L (136-145)
[2017-03-20 01:57] LABS: ANION GAP 6 MEQ/L (5-15); BICARBONATE 26.9 MEQ/L (21.0-32.0)
[2017-03-20 01:58] LABS: BLOOD UREA NITROGEN 13 MG/DL (7-18)
[2017-03-20 02:00] LABS: ALT (GPT) 25 U/L (10-53)
[2017-03-20 02:01] LABS: AST (GOT) 21 U/L (15-37); GLOMERULAR FILTRATION RATE 144 ML/MIN (>89)
[2017-03-20 02:02] LABS: TOTAL BILIRUBIN ADULT 0.3 MG/DL (0.2-1.0)
[2017-03-20 02:03] LABS: ALKALINE PHOSPHATASE 54 U/L (45-117)
[2017-03-20 02:22] VITALS: BP 107/62; PULSE 80; RESP 16; O2SAT 99
[2017-03-20] MEDS ORDERED: PROC10TA PO (02:40)
[2017-03-20 02:57] VITALS: BP 105/65
== END 2017-03-20 03:07 | disposition home or self-care (01) ==
LOC: PHED 00:38
DX: F11.10 Opioid abuse, uncomplicated (principal); R11.0 Nausea
CPT/HCPCS: 80053; 85025; 96361; 96374; 99284; J2405; J7030